=== PATIENT | male | born 1990 | race Caucasian/White ===

== ENCOUNTER 2024-02-26 18:50 | Inpatient (IN) | payer OTHER, SELFPAY ==
[2024-02-26] VITALS (21 sets, daily range): BP systolic 92–136; BP diastolic 52–73; BMI 24.1
--- NOTE | 2024-02-26 15:36 | ED.GENMED ---
History of Present Illness
<Chandrakant Che PA-C - Last Filed: 02/26/24 18:56>
General
Chief Complaint: Rectal Bleeding
Time Seen by Provider: 02/26/24 15:20
History of Present Illness
History of Present Illness:
33-year-old male with history of substance abuse presents from [facility] due to rectal bleeding ongoing for the past several weeks. He had outpatient labs done at the facility yesterday showing hemoglobin of 10-1/2. He
states that he is profoundly dizzy and has had essentially no appetite for the past several days. Denies any lower abdominal pain. Describes liquid brown stool mixed with large amounts of blood and clots. Denies any bleeding in between bowel
movements. Does not take any blood thinners
Past History
<Chandrakant Che PA-C - Last Filed: 02/26/24 18:56>
Past History
ED Past Medical History: Other (Renal calculus)
ED Past Surgical History: None
Social History
Tobacco: Smoker
Alcohol: Occasional
Drug: Other (Substance abuse)
Personal: Single
Living: long-term
Review of Systems
<Chandrakant Che PA-C - Last Filed: 02/26/24 18:56>
Review of Systems
Allergies reviewed?: Yes
All Other Systems: ROS reviewed and negative except as documented in HPI and ROS
Phy Exam
<Chandrakant Che PA-C - Last Filed: 02/26/24 18:56>
Physical Exam
Physical Exam:
GEN:Pale, diaphoretic, ill-appearing
Eyes: PERRLA, EOMs intact, no scleral icterus
HENT: NCAT, oral mucosa moist, no JVD, no cervical adenopathy.
Lungs: CTAB, no wheezes, rales, rhonchi, normal chest wall excursion
Cardiac:Tachycardic and regular
Abdomen: S, NT, ND, NABS, no masses or hepatosplenomegaly
Rectal: Tender non bleeding hemorrhoid. No blood in rectal vault
Neuro: AO x 3
MSK: No gross deformity or ecchymosis. No edema. No digital clubbing
Skin: No rashes, petechiae. Normal color, no pallor or jaundice.
Psych: Calm, cooperative, proper hygiene
Course
<Chandrakant Che PA-C - Last Filed: 02/26/24 18:56>
Orders/Labs/Results
Orders:
Orders
02/26/24
Electrocardiogram (*1) Stat
Comment: ALREADY DONE
02/26/24 15:15
Prothrombin Time Urgent
02/26/24 15:16
Type+Screen Urgent
C-Reactive Protein Urgent
Comment: ADD ON
Complete Blood Count/With Diff Urgent
Comprehensive Metabolic Panel Urgent
Lipase Urgent
Comment: ADD ON
Magnesium Urgent
Comment: MAG ADDED ON BY FLOOR 4PM 02-26-24
Manual Differential Urgent
Serum Osmolality Urgent
Comment: SERUM OSMOLALITY ADDED ON BY FLOOR 3:50PM 02-26-24
TSH Reflex To Free T4 Urgent
Comment: ADD ON
02/26/24 15:34
Blood Bank Products [* Blood Bank Products] Urgent
Blood Bank Products: *Packed RBC Leuko(PRBC's)
Quantity: 2
Transfuse Today: Yes
Reason: Bleeding
02/26/24 15:50
Add On- LAB Urgent
Tests Added?: serum osmolality
02/26/24 15:58
Lactated Ringers [Lr] 1,000 ml IV BOLUS
02/26/24 15:59
Add On- LAB Urgent
Tests Added?: magnesium
CT Abd/Pel (IV only)-DH only Urgent
Comment:
Reason For Exam: weakness, rectal bleeding
02/26/24 16:08
Potassium Chloride [KCl] 40 meq 0.9% Sodium Chloride 250 ml [Nss] 250 ml IV NOW
02/26/24 16:10
Piperacillin/Tazo 3.375 Gram [Zosyn] 3.375 gram in 50 ml IV NOW
02/26/24 16:26
Blood Culture Routine
GENESIS Source: Blood/Venous
Specimen Description:
Blood Culture Urgent
GENESIS Source: Blood/Venous
Specimen Description:
02/26/24 17:00
Vancomycin [Vancocin] 1,750 mg 0.9% Sodium Chloride 500 ml [Nss] 500 ml IV NOW
02/26/24 17:12
Osmolality, Random Urine Urgent
Date Specimen was Collected: 02/26/24
Time Specimen was Collected: 17:07
Comment: ADD ON
Urinalysis Reflex To Culture Urgent
Date Specimen was Collected: 02/26/24
Time Specimen was Collected: 17:07
Urine Drug Abuse Screen Urgent
Date Specimen was Collected: 02/26/24
Time Specimen was Collected: 17:07
Urine Sodium Urgent
Date Specimen was Collected: 02/26/24
Time Specimen was Collected: 17:07
02/26/24 17:35
Add On- LAB Urgent
Tests Added?: crp
02/26/24 17:59
Add On- LAB Stat
Tests Added?: TSH with reflex, Urine osmolarity
02/26/24 18:00
VANCOMYCIN Pharmacy to Dose [VANCOCIN Pharmacy to Dose] 1 each Pharmacy To Prepare [Call Pharmacy To Prepare] 0 ml IV PER PROTOCOL
02/26/24 18:01
Add On- LAB Stat
Tests Added?: Lipase
02/26/24 18:04
Lactic Acid Urgent
02/26/24 18:19
H&H Stat
02/26/24 18:21
BMP [Basic Metabolic Panel] Stat
02/26/24 18:25
Admit/Transfer Patient As Directed
Co-Sign Provider:
Level of Care: Inpatient admission
Assign to:: IMU- Intermediate Care
Physician / Group: Hospitalist
Diagnosis: GIB, hyponatremia, colitis
Reason for Hospitalization: #Opioid withdrawal
#Prolonged QTc (526ms on admission - then improved to 486 )
As QTc improved - started Suboxone protocol
Ativan for MSAS as cannot exclude alcohol withdrawal
Thiamine/Folate
Zofran, Imodium,
Telemetry
#L hand s/p phalanx amputation with skin discoloration and purulent output from L
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
s/p amp in Aug [address] [place]
[address] scan without significant findings
Check Bcx
MRI LUE
Ortho for I&D and culturing of deep tissue
hold Abx at this time
#Hypokalemia and Hypernatremia
LR for 24h
follow electrolytes
Mg WNL
#Vomiting with leukocytosis
XR chest without acute findings
resolved
#Incarcerated
COVID-19 neg
#Poor venous access 2/2 IVDA
Expected length of stay greater than two midnights?: Yes
ELOS- Estimated Length of Stay in days: 3
I certify the patient meets the requirements for IP care: Yes
Code Status As Directed
Resuscitation Status: Full Code
PRN Pain Medication Management As Directed
May give lesser potent ordered pain med per pt: Yes
preference::
Protocol:: Medication orders for pain may be administered in a
manner that supports deferring to patient preference
when the pt is:
- Requesting an ordered lesser potent pain medication.
Least to most potent pain medications are defined
as: acetaminophen < NSAID < tramadol < opioids
(morphine, oxycodone, hydromorphone).
- Requesting a lesser dose of the same medication IF
ORDERED.
- Requesting a less intrusive route of administration
if both routes are prescribed by the provider (PO <
IV).
02/26/24 18:31
Add On- LAB Stat
Tests Added?: Urine drug abuse screen
Abnormal Lab Results
02/26/24 02/26/24 02/26/24
15:15 15:16 17:12
WBC 15.8 H 10^3/uL
(4.8-10.8)
RBC 3.69 L 10^6/uL
(4.70-6.10)
Hgb 10.1 L g/dL
(13.0-18.0)
Hct 29.1 L %
(39.0-52.0)
MCV 78.9 L fL
(80.0-94.0)
Plt Count 638 H 10^3/uL
(130-400)
Abs Neuts (Manual) 10.2 H 10^3/uL
(1.4-6.5)
Band Neutrophils 18 H %
(0-3)
Lymphocytes (Manual) 13 L %
(20-51)
Monocytes (Manual) 11 H %
(2-9)
PT 15.2 H Sec
(11.4-14.6)
Sodium 124 L mmol/L
(135-145)
Potassium 2.9 L mmol/L
(3.5-5.1)
Chloride 84 L mmol/L
(98-107)
Glucose 146 H mg/dl
(70-99)
Serum Osmolality 262 L mOsm/kg
(275-300)
Lactic Acid
Calcium 7.9 L mg/dl
(8.4-10.2)
C-Reactive Protein 242.90 H mg/L
(0.0-10.00)
Total Protein 5.7 L g/dl
(6.3-8.2)
Albumin 2.7 L g/dl
(3.5-5.0)
Lipase 16 L U/L
(23-300)
Urine Osmolality 141 L mOsm/kg
(300-900)
Urine Sodium < 5 L mmol/L
(30-90)
Crossmatch IS Only See Detail
02/26/24
18:04
WBC
RBC
Hgb
Hct
MCV
Plt Count
Abs Neuts (Manual)
Band Neutrophils
Lymphocytes (Manual)
Monocytes (Manual)
PT
Sodium
Potassium
Chloride
Glucose
Serum Osmolality
Lactic Acid 3.0 H mmol/L
(0.7-2.0)
Calcium
C-Reactive Protein
Total Protein
Albumin
Lipase
Urine Osmolality
Urine Sodium
Crossmatch IS Only
Vital Signs
Initial and Last Documented VS:
Initial Vital Signs
Temp Pulse Resp BP Pulse Ox
99.2 F 142 12 108/73 98
02/26/24 15:13 02/26/24 15:13 02/26/24 15:13 02/26/24 15:13 02/26/24 15:13
Last Documented Vital Signs
Temp Pulse Resp BP Pulse Ox
99.2 F 116 12 100/62 100
02/26/24 15:13 02/26/24 16:45 02/26/24 16:45 02/26/24 16:45 02/26/24 16:45
<Koby Up MD - Last Filed: 02/26/24 16:05>
Orders/Labs/Results
Orders:
Orders
02/26/24
Electrocardiogram (*1) Stat
Comment: ALREADY DONE
02/26/24 15:15
Prothrombin Time Urgent
02/26/24 15:16
Type+Screen Urgent
C-Reactive Protein Urgent
Comment: ADD ON
Complete Blood Count/With Diff Urgent
Comprehensive Metabolic Panel Urgent
Lipase Urgent
Comment: ADD ON
Magnesium Urgent
Comment: MAG ADDED ON BY FLOOR 4PM 02-26-24
Manual Differential Urgent
Serum Osmolality Urgent
Comment: SERUM OSMOLALITY ADDED ON BY FLOOR 3:50PM 02-26-24
TSH Reflex To Free T4 Urgent
Comment: ADD ON
02/26/24 15:34
Blood Bank Products [* Blood Bank Products] Urgent
Blood Bank Products: *Packed RBC Leuko(PRBC's)
Quantity: 2
Transfuse Today: Yes
Reason: Bleeding
02/26/24 15:50
Add On- LAB Urgent
Tests Added?: serum osmolality
02/26/24 15:58
Lactated Ringers [Lr] 1,000 ml IV BOLUS
02/26/24 15:59
Add On- LAB Urgent
Tests Added?: magnesium
CT Abd/Pel (IV only)-DH only Urgent
Comment:
Reason For Exam: weakness, rectal bleeding
02/26/24 16:08
Potassium Chloride [KCl] 40 meq 0.9% Sodium Chloride 250 ml [Nss] 250 ml IV NOW
02/26/24 16:10
Piperacillin/Tazo 3.375 Gram [Zosyn] 3.375 gram in 50 ml IV NOW
02/26/24 16:26
Blood Culture Routine
GENESIS Source: Blood/Venous
Specimen Description:
Blood Culture Urgent
GENESIS Source: Blood/Venous
Specimen Description:
02/26/24 17:00
Vancomycin [Vancocin] 1,750 mg 0.9% Sodium Chloride 500 ml [Nss] 500 ml IV NOW
02/26/24 17:12
Osmolality, Random Urine Urgent
Date Specimen was Collected: 02/26/24
Time Specimen was Collected: 17:07
Comment: ADD ON
Urinalysis Reflex To Culture Urgent
Date Specimen was Collected: 02/26/24
Time Specimen was Collected: 17:07
Urine Drug Abuse Screen Urgent
Date Specimen was Collected: 02/26/24
Time Specimen was Collected: 17:07
Urine Sodium Urgent
Date Specimen was Collected: 02/26/24
Time Specimen was Collected: 17:07
02/26/24 17:35
Add On- LAB Urgent
Tests Added?: crp
02/26/24 17:59
Add On- LAB Stat
Tests Added?: TSH with reflex, Urine osmolarity
02/26/24 18:00
VANCOMYCIN Pharmacy to Dose [VANCOCIN Pharmacy to Dose] 1 each Pharmacy To Prepare [Call Pharmacy To Prepare] 0 ml IV PER PROTOCOL
02/26/24 18:01
Add On- LAB Stat
Tests Added?: Lipase
02/26/24 18:04
Lactic Acid Urgent
02/26/24 18:19
H&H Stat
02/26/24 18:21
BMP [Basic Metabolic Panel] Stat
02/26/24 18:25
Admit/Transfer Patient As Directed
Co-Sign Provider:
Level of Care: Inpatient admission
Assign to:: IMU- Intermediate Care
Physician / Group: Hospitalist
Diagnosis: GIB, hyponatremia, colitis
Reason for Hospitalization: #Opioid withdrawal
#Prolonged QTc (526ms on admission - then improved to 486 )
As QTc improved - started Suboxone protocol
Ativan for MSAS as cannot exclude alcohol withdrawal
Thiamine/Folate
Zofran, Imodium,
Telemetry
#L hand s/p phalanx amputation with skin discoloration and purulent output from L
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
s/p amp in Aug [address] [place]
[address] scan without significant findings
Check Bcx
MRI LUE
Ortho for I&D and culturing of deep tissue
hold Abx at this time
#Hypokalemia and Hypernatremia
LR for 24h
follow electrolytes
Mg WNL
#Vomiting with leukocytosis
XR chest without acute findings
resolved
#Incarcerated
COVID-19 neg
#Poor venous access 2/2 IVDA
Expected length of stay greater than two midnights?: Yes
ELOS- Estimated Length of Stay in days: 3
I certify the patient meets the requirements for IP care: Yes
Code Status As Directed
Resuscitation Status: Full Code
PRN Pain Medication Management As Directed
May give lesser potent ordered pain med per pt: Yes
preference::
Protocol:: Medication orders for pain may be administered in a
manner that supports deferring to patient preference
when the pt is:
- Requesting an ordered lesser potent pain medication.
Least to most potent pain medications are defined
as: acetaminophen < NSAID < tramadol < opioids
(morphine, oxycodone, hydromorphone).
- Requesting a lesser dose of the same medication IF
ORDERED.
- Requesting a less intrusive route of administration
if both routes are prescribed by the provider (PO <
IV).
02/26/24 18:31
Add On- LAB Stat
Tests Added?: Urine drug abuse screen
Abnormal Lab Results
02/26/24 02/26/24 02/26/24
15:15 15:16 17:12
WBC 15.8 H 10^3/uL
(4.8-10.8)
RBC 3.69 L 10^6/uL
(4.70-6.10)
Hgb 10.1 L g/dL
(13.0-18.0)
Hct 29.1 L %
(39.0-52.0)
MCV 78.9 L fL
(80.0-94.0)
Plt Count 638 H 10^3/uL
(130-400)
Abs Neuts (Manual) 10.2 H 10^3/uL
(1.4-6.5)
Band Neutrophils 18 H %
(0-3)
Lymphocytes (Manual) 13 L %
(20-51)
Monocytes (Manual) 11 H %
(2-9)
PT 15.2 H Sec
(11.4-14.6)
Sodium 124 L mmol/L
(135-145)
Potassium 2.9 L mmol/L
(3.5-5.1)
Chloride 84 L mmol/L
(98-107)
Glucose 146 H mg/dl
(70-99)
Serum Osmolality 262 L mOsm/kg
(275-300)
Lactic Acid
Calcium 7.9 L mg/dl
(8.4-10.2)
C-Reactive Protein 242.90 H mg/L
(0.0-10.00)
Total Protein 5.7 L g/dl
(6.3-8.2)
Albumin 2.7 L g/dl
(3.5-5.0)
Lipase 16 L U/L
(23-300)
Urine Osmolality 141 L mOsm/kg
(300-900)
Urine Sodium < 5 L mmol/L
(30-90)
Crossmatch IS Only See Detail
02/26/24
18:04
WBC
RBC
Hgb
Hct
MCV
Plt Count
Abs Neuts (Manual)
Band Neutrophils
Lymphocytes (Manual)
Monocytes (Manual)
PT
Sodium
Potassium
Chloride
Glucose
Serum Osmolality
Lactic Acid 3.0 H mmol/L
(0.7-2.0)
Calcium
C-Reactive Protein
Total Protein
Albumin
Lipase
Urine Osmolality
Urine Sodium
Crossmatch IS Only
Vital Signs
Initial and Last Documented VS:
Initial Vital Signs
Temp Pulse Resp BP Pulse Ox
99.2 F 142 12 108/73 98
02/26/24 15:13 02/26/24 15:13 02/26/24 15:13 02/26/24 15:13 02/26/24 15:13
Last Documented Vital Signs
Temp Pulse Resp BP Pulse Ox
99.2 F 116 12 100/62 100
02/26/24 15:13 02/26/24 16:45 02/26/24 16:45 02/26/24 16:45 02/26/24 16:45
<Chandrakant Che PA-C - Last Filed: 02/26/24 18:56>
MDM/Problems Addressed
MDM/Problems Addressed:
33-year-old male arrives from [facility] for evaluation of rectal bleeding. On initial evaluation he was noted to be pale and markedly tachycardic, concerning for blood loss anemia. On exam no evidence for active bleeding. He was
noted to be hyponatremic and likely hypovolemic thus was given IV lactated Ringer's and potassium. Blood was initially ordered but held given the patient's stable hemoglobin however there was in all likelihood some component of volume contraction
contributing to this. CT reveals pancolitis, given the history this is likely inflammatory in nature but cannot rule out infectious etiology and thus was covered broadly with vancomycin and Zosyn given his high risk environment in long-term. Will be
admitted to the hospitalist service for further management
<Chandrakant Che PA-C - Last Filed: 02/26/24 18:56>
*Critical Care Note
Total Time (30-74mins, 75-104mins- exclusive of procedures): Not Applicable
ED Attending Note
<Chandrakant Che PA-C - Last Filed: 02/26/24 18:56>
-
Portions of this chart may have been created with voice recognition software.� Occasional wrong word or��sound alike� substitutions may have occurred due to the inherent limitations of voice recognition software.
<Koby Up MD - Last Filed: 02/26/24 16:05>
ED Attending Note
Patient seen and examined by attending physician: Yes
I performed the substantive portion of visit, reviewed & personally made and approve the management plan that is documented in note by myself or IAN.: Yes
ED Attending Note:
33-year-old male ongoing bright red rectal bleeding for about 2 to 3 weeks. Patient was noted to be very pale. Some vague lower abdominal disc hemoglobin yesterday was 10+. No history of GI bleed. No blood thinners.
On exam patient is very pale. He is tachycardic. Blood pressure mildly low. Minimally diaphoretic at times. No respiratory distress. Abdomen soft with minimal epigastric tenderness. No rebound or guarding no mass or hernia.
Initial concern based on patient's appearance history was that he was going to have a very very low hemoglobin. Initial concern was whether we should give him unmatched blood versus match blood. Although blood pressure is okay and he is not
describing severe bleeding at this time. Given that his hemoglobin is 10.1 we could hold on actually transfusing him at this time. He is ready to get blood if needed. Again we initially were going to do a CT angiography however given the relative
stability of his hemoglobin over 24 hours and no description of severe bleeding the benefit of CT angio is minimal. He is also hyponatremic which is new. Clinically is dehydrated. He will receive fluids and nephrology consult. Clearly needs
admission.
Discharge Plan
Departure
Patient Disposition: Admit
Date of Disposition: 02/26/24
Time of Disposition: 17:58
Admit to: IMU
Presentation/result/management discussed w/ accepting MD/DO: Hospitalist
Discharge Problem:
Pancolitis
Interventions
Interventions:
*Risk Screen - Suicide Last Done: 02/26/24 15:14
*General Assessment Last Done: 02/26/24 15:14
*Neglect/Abuse Screening Last Done: 02/26/24 15:14
*ED COVID-19 Vaccine History Last Done: 02/26/24 15:15
EU-Paqkqc-Dniazqevkf Assessment Last Done: 02/26/24 15:15
ED- Cardiac Assessment Last Done: 02/26/24 15:15
ED- Pulmonary Assessment Last Done: 02/26/24 15:15
[2024-02-26 15:45] LABS: AST (SGOT) 27 U/L (17-59); Albumin 2.7 g/dl (3.5-5.0); Alkaline Phosphatase 77 U/L (38-126); Blood Urea Nitrogen 9 mg/dl (9-20); Calcium 7.9 mg/dl (8.4-10.2); Carbon Dioxide 29 mmol/L (22-30); Chloride 84 mmol/L (98-107); Estimated Creatinine Clearance 88 ml/min; Glucose 146 mg/dl (70-99); Potassium 2.9 mmol/L (3.5-5.1); Sodium 124 mmol/L (135-145); Total Bilirubin 0.7 mg/dl (0.2-1.3); Total Protein 5.7 g/dl (6.3-8.2); eGFR > 60.00
[2024-02-26 15:52] LABS: Hematocrit 29.1 % (39.0-52.0); Hemoglobin 10.1 g/dL (13.0-18.0); Mean Corp Hgb Conc. 34.7 g/dL (33.0-37.0); Mean Corpuscular Hgb 27.4 pg (27.0-31.0); Mean Corpuscular Volume 78.9 fL (80.0-94.0); Mean Platelet Volume 8.6 fL (7.4-10.4); Platelet Count 638 10^3/uL (130-400); Red Blood Cell Count 3.69 10^6/uL (4.70-6.10); Red Cell Dist. Width 12.8 % (11.5-14.5); White Blood Cell Count 15.8 10^3/uL (4.8-10.8)
[2024-02-26 15:58] LABS: Absolute Neutrophils -Man Diff 10.2 10^3/uL (1.4-6.5); Atypical Lymphocytes 5 %; Band Neutrophils 18 % (0-3); Eosinophils 4 % (0-6); Lymphocytes 13 % (20-51); Metamyelocytes 1 % (-); Monocytes 11 % (2-9); Myelocytes 1 % (-); Platelets Checked Yes; Segmented Neutrophils 47 % (42-75)
[2024-02-26 16:00] LABS: ALT (SGPT) 41 U/L (0-50); Hypochromasia 1+; Normal RBC Morphology No; Polychromasia 1+; Total Cells Counted 100
[2024-02-26 16:07] LABS: PT 15.2 Sec (11.4-14.6)
[2024-02-26 16:11] LABS: Osmolality Serum 262 mOsm/kg (275-300)
[2024-02-26 16:18] LABS: Magnesium 2.3 mg/dl (1.6-2.3)
[2024-02-26] MEDS: LR 1000 IV (16:27)
[2024-02-26] MEDS: KCL 270 MEQ IV ×2 (16:28→22:36)
[2024-02-26] MEDS: ZOSYN 50 IV ×2 (16:31→21:03)
[2024-02-26 17:27] LABS: Urine Albumin Negative (Neg - Trace); Urine Bilirubin Negative (Negative); Urine Character Clear (Clear); Urine Color Yellow; Urine Glucose Negative (Negative); Urine Ketone Negative (Negative); Urine Leukocyte Negative (Negative); Urine Nitrite Negative (Negative); Urine Occult Blood Negative (Negative); Urine Urobilinogen Negative (Neg - 1+); Urine pH 6.5 (5.0-9.0)
[2024-02-26 17:43] LABS: Urine Sodium < 5 mmol/L (30-90)
[2024-02-26] MEDS: VANCOCIN 535 MG IV (18:18)
[2024-02-26 18:23] LABS: Osmolality Urine 141 mOsm/kg (300-900)
[2024-02-26 18:28] LABS: Lipase 16 U/L (23-300)
--- NOTE | 2024-02-26 18:37 | HPS.HSE ---
Addendum entered and electronically signed by Terry Hood MD 02/26/24 19:33:
#HYpokalemia
2/2 diarrhea
replete and follow potassium
check Mg
Original Note:
Family Physician
-
Family Physician: Facility [facility]
Chief Complaint
-
GIB, abd pain
History of Present Illness
33yo M with no significant medical history except of drug abuse brought from [facility] (was incarcerated for 3 months) with persistent abd pain, bright red blood in stool, diarrhea, lack of appetite for 3 weeks. In ED had
bowel movement with waterry stool and few blood clots. Hyponatremia also found. As per patient he had not much of the appetite recently. CT and/pelvis with pancolitis. Declined personal or family Hx of IBD
Patient agreeable for HIV and HEpC screening
Medical History
Past Medical History
Past Medical History: Reports Other
Additional Past Medical History:
see HPI
Past Surgical History: Reports None
Social History
Tobacco: Former Smoker
Alcohol: Former
Drug: Former User
Family History
Family History: Not pertinent
Allergies / Home Medications
Allergies reflects when Allergies were last updated in MePlease.
Home Medications with original date entered in MePlease
Allergy/Medication List:
Allergies
Allergy/AdvReac Type Severity Reaction Status Date / Time
No Known Allergies Allergy Unverified 06/24/22 20:48
Home Medications
famotidine 20 mg tablet 20 mg PO DAILY 02/26/24
hydrocortisone 1 % topical cream 1 applic topical HS rectally 02/26/24
loperamide 2 mg capsule 2 mg PO BIDPRN PRN diarrhea 02/26/24
wheat dextrin 1 gram chewable tablet (Benefiber Sugar Free (dextrin)) 1 tab PO BID 02/26/24
Review of Systems
-
History Source: Patient
A 12 point ROS was completed and negative except as noted: Yes
Abdomen/GI: Reports See HPI
Physical Exam
Vital Signs
Vital Signs
Temp Pulse Resp BP Pulse Ox
99.2 F 116 12 100/62 100
02/26/24 15:13 02/26/24 16:45 02/26/24 16:45 02/26/24 16:45 02/26/24 16:45
Physical Exam
General: Well Developed, Well Nourished and No Apparent Distress
HEENT: Anicteric and Other; No [place] Conjunctivae
Respiratory: Clear; No Wheezes, Rales or Rhonchi
Cardiac: S1/S2 and Regular Rhythm
GI: Soft and Tender (diffusely )
Rectal: Red
Musculoskeletal: No Clubbing, No Cyanosis and No Edema
Skin: Warm, Dry and Other (Pale)
Neuro: Awake, Alert, Oriented and AO x 3
Psych: Calm
Laboratory Results
-
Laboratory Results
PT 15.2 Sec (11.4-14.6) H 02/26/24 15:15
INR 1.20 02/26/24 15:15
Lactic Acid 3.0 mmol/L (0.7-2.0) H 02/26/24 18:04
Total Bilirubin 0.7 mg/dl (0.2-1.3) 02/26/24 15:16
AST 27 U/L (17-59) 02/26/24 15:16
ALT 41 U/L (0-50) 02/26/24 15:16
Alkaline Phosphatase 77 U/L (38-126) 02/26/24 15:16
Lipase 16 U/L (23-300) L 02/26/24 15:16
Data Reviewed
-
CT Scan: Report Reviewed by me
Lab Data: Labs Reviewed by me
Impression/Plan
-
A/P:
Patient is tachycardic and dehydrated, most likely expect Hgb to drop as dehydration improves - IMU disposition advised
#Pancolitis
#Lower GIB with acute blood loss anemia
Stool Cx, c.diff, WBC, calprotectin
Two large bore IV and follow serial Hgb, transfuse if further drop by 2.0 or more or if Hgb <8
PPI
CLD on admission and GI for further mgmt
Check TSH, lipase
Zosyn
#Hyponatremia
Most likely hypovolemic
Hypoosmolar
Check UOsm
Radha low
BMP q4h
Nephrology consult
Use 3% saline 250ml bolus if still low, target increase by 4-6 meq/24h
#Leukocytosis
#Thrombocytopenia
Most likely either 2/2 infection or 2/2 hemoconcentration
follow CBC
#Subcentimeter R renal lesions
too small to characterize
mgmt as per GI - advise close outpatient follow up
DVT ppx SCDs
Full code
I have spent at least 78min preparing admission, reviewing chart, test results and direct patient care
[2024-02-26 18:56] LABS: TSH Reflex To Free T4 0.89 uIU/ml (0.47-4.68)
[2024-02-26 19:19] LABS: Amphetamines Negative (Negative); Barbiturates Negative (Negative); Benzodiazepines Negative (Negative); Buprenorphine Negative (Negative); Cocaine Negative (Negative); Marijuana Negative (Negative); Methadone Negative (Negative); Methamphetamines Negative (Negative); Opiates Negative (Negative); Phencyclidine Negative (Negative); Tricyclic Antidepressants Negative (Negative)
[2024-02-26] MEDS: PROTONIX IV 40 MG IV (20:27)
[2024-02-26] MEDS: NSS (PRESERVATIVE FREE) 10 ML IV (20:28)
[2024-02-26] MEDS: FLUSH (NSS) 3 FLUSH IV (21:03)
[2024-02-26 21:27] LABS: Hematocrit 22.3 % (39.0-52.0); Hemoglobin 7.8 g/dL (13.0-18.0)
[2024-02-26 21:42] LABS: Reticulocyte Count 2.9 % (0.4-2.8)
[2024-02-26 21:51] LABS: Blood Urea Nitrogen 6 mg/dl (9-20); Calcium 6.9 mg/dl (8.4-10.2); Carbon Dioxide 27 mmol/L (22-30); Chloride 89 mmol/L (98-107); Estimated Creatinine Clearance 107 ml/min; Glucose 109 mg/dl (70-99); LDH 132 U/L (120-246); Potassium 2.8 mmol/L (3.5-5.1); Sodium 122 mmol/L (135-145); eGFR > 60.00
[2024-02-26 22:10] LABS: Lactic Acid 1.4 mmol/L (0.7-2.0)
[2024-02-26 22:13] LABS: COVID-19 Antigen Negative (Negative)
--- NOTE | 2024-02-26 22:25 | PTCARENOTE ---
PRBC's order clarified with dr mccall- wants ONE unit transfused and then draw hg not three units as ordered
--- NOTE | 2024-02-26 22:27 | PTCARENOTE ---
critical ca and low k and na reported to arnp- order for riders see mar
[2024-02-26 22:52] LABS: Folate 8.7 ng/ml (2.76-20)
--- NOTE | 2024-02-26 23:09 | PTCARENOTE ---
1st unit prbc's transfusing- no s/s of transfusion reaction
[2024-02-26] MEDS: SODIUM CHLORIDE 3% 250 IV (23:17)
--- NOTE | 2024-02-26 23:23 | PTCARENOTE ---
3% saline hung for na of 122- ca rider and k rider also hung along with blood.
[2024-02-26] MEDS: CALCIUM GLUCONATE 100 IV (23:29)
[2024-02-27] VITALS (11 sets, daily range): BP systolic 91–117; BP diastolic 49–64; BMI 24.1
--- NOTE | 2024-02-27 00:26 | PTCARENOTE ---
ax3 pale- sinus tach- bp wnl- low grade fevers - has small liquid bm's about once an hour- bm's vary between burgundy and light brown- pt is with 2 [employer] guards shackled to the bed except when using bathroom- he is able to ambulate to bathroom with
assistance
--- NOTE | 2024-02-27 01:33 | PTCARENOTE ---
prbc's complete- no s/s of transfusion reaction.
--- NOTE | 2024-02-27 03:53 | PTCARENOTE ---
Received report from LIZZETH Quintero. Pt resting in bed. Guards at bedside, shackled pt to bed. AM labs drawn and sent. 3% Saline continues per SEP. Tele showing sinus tach 100-120s. Call hay within reach.
[2024-02-27] MEDS: ZOSYN 50 IV ×4 (03:55→22:44)
[2024-02-27 04:08] LABS: Hemoglobin 8.9 g/dL (13.0-18.0); Mean Corp Hgb Conc. 35.6 g/dL (33.0-37.0); Mean Corpuscular Hgb 28.2 pg (27.0-31.0); Mean Corpuscular Volume 79.1 fL (80.0-94.0); Red Blood Cell Count 3.16 10^6/uL (4.70-6.10); Red Cell Dist. Width 13.2 % (11.5-14.5); White Blood Cell Count 14.7 10^3/uL (4.8-10.8)
[2024-02-27 04:26] LABS: ALT (SGPT) 24 U/L (0-50); AST (SGOT) 23 U/L (17-59); Alkaline Phosphatase 63 U/L (38-126); Blood Urea Nitrogen 6 mg/dl (9-20); Calcium 7.6 mg/dl (8.4-10.2); Carbon Dioxide 27 mmol/L (22-30); Chloride 94 mmol/L (98-107); Creatine Phosphokinase 26 U/L (55-170); Estimated Creatinine Clearance 107 ml/min; Glucose 110 mg/dl (70-99); Potassium 3.3 mmol/L (3.5-5.1); Sodium 125 mmol/L (135-145); Total Protein 4.6 g/dl (6.3-8.2); eGFR > 60.00
[2024-02-27 04:36] LABS: Total Iron Binding Capacity 109 ug/dl (261-462)
[2024-02-27 04:50] LABS: Iron < 20 ug/dl (49-181)
[2024-02-27 04:53] LABS: Anisocytosis 1+; Band Neutrophils 9 % (0-3); Hypochromasia Slight; Lymphocytes 8 % (20-51); Metamyelocytes 1 % (-); Monocytes 2 % (2-9); Normal RBC Morphology No; Platelets Checked Yes; Polychromasia Slight; Segmented Neutrophils 80 % (42-75); Total Cells Counted 100
[2024-02-27 05:15] LABS: Vitamin B12 937 pg/ml (239-931)
[2024-02-27] MEDS: KCL 270 MEQ IV (05:23)
[2024-02-27] MEDS: TYLENOL 650 MG PO ×2 (05:40→19:58)
--- NOTE | 2024-02-27 06:53 | W.PN.UPDATE ---
Update Note
Progress Note Update
RN notified abnormal labs, Calcium 6.9, Corrected Calcium 7.5, ordered Calcium Gluconate 2g IV, K 2.8, ordered KCL 40meq I --> K 3.3 , Na 122 3% Nacl at 30cc/hr ordered per Dr. Manzanares recommendation -> Na 125, BMP q4 h.
--- NOTE | 2024-02-27 06:58 | CON.GI ---
Addendum entered and electronically signed by Pina Serrano MD 02/27/24 17:30:
I saw and examined the patient.
The ENGINE WIPER or PA's note was reviewed and I agree with the note.
Comment: 33-year-old male, prisoner who presents from [facility] with complaints of abdominal discomfort and rectal bleeding. He reports that in the last month, he would have discomfort in the lower abdomen and multiple episodes of bloody
bowel movements including nocturnal episodes, up to 12 a day. Some nausea but no vomiting. No heartburn or trouble swallowing. Prior to this episode, he reports having normal bowel movements without any previous episodes of bleeding. No NSAID
use. Took antibiotics for tooth infection but that was after the rectal bleeding started. Lost about 16 pounds in the last 2 months. Or inflammatory bowel disease no family history of colon cancer or polyps. In the ER noted to have iron
deficiency leukocytosis with left shift, anemia, thrombocytosis, hypoalbuminemia, hyponatremia. Stool for C. difficile, Cryptosporidium and Giardia negative, many white cells noted, cultures pending. CT scan showing pancolitis. Blood cultures
positive, final result pending.
-Bloody diarrhea, abdominal discomfort with pancolitis
Rule out inflammatory bowel disease, less likely infectious
Await stool cultures, fecal calprotectin.
Monitor H&H, transfuse as needed. Monitor electrolytes and replete.
Clear liquid diet for now.
If stool cultures negative, will need to get flexible sigmoidoscopy.
Currently on Zosyn for leukocytosis and positive blood cultures
Will follow
Original Note:
Consultation
-
Date/Time Consultation Requested: 02/26/241944
Date/Time Consultation Performed: 02/27/24 1130
Requesting Provider: Terry Hood MD
Performing Provider: REYNALDO Ortega, Pina Serrano MD
Reason for Consultation: GI bleed
Medical History
Chief Complaint / HPI
History of Present Illness:
Pt is a 33yo with hx substance abuse, renal calculus with onset of rectal bleeding for several weeks. He was noted with hbg 10.5 with dizziness and brought to for evaluation. On admission hbg with further drop to 7.8 with normal BUN and
transfusion given. ER rectal with non bleeding hemorrhoids and no blood in rectal vault though since admission patient with multiple loose brown and blood tinged stools. c-diff, Giardia/cypto neg and stool cx pending. Other labs notable for
WBC 15,8000 with 18 bands, Na 122, K 2.8, calcium 6.9, albumin 2, platelets 638, CRP 242.9, retic count 2.9, haptoglobin and fecal gemma pending with neg tox screen. CT notable for pancolitis without obstruction or pneumatosis.
Pt states hx normal bowel function for years. He also admits normal bowel function for first month at [facility]. He developed tooth infection and was placed on antibiotics and around same time started with diarrhea and bleeding. Pt states over
next few week he was having frequent stools about every hour with 16 lbs wt loss and some lower abdominal pain worse on right side. He admits to some new dysphagia also noted with regurgitation of even water that he takes in. He denies
hematemesis, or black stools. No history of prior EGD or colonoscopy in past. Pt does also admits to NSAID use during tooth infection.
Past Medical History
Past Medical History: Other (renal calculus, recent tooth infection with antibiotic use )
Social History
Tobacco: Smoker
Alcohol: None
Drug: Other (meth use prior Nursing Home stopped in November )
Living: Nursing Home
Family History
Family History: Other (no family hx colon CA, crohns, UC)
Allergies / Home Medications
Allergy/AdvReac Type Severity Reaction Status Date / Time
No Known Allergies Allergy Unverified 06/24/22 20:48
�Medication �Instructions �Recorded
famotidine 20 mg tablet 20 mg PO DAILY 02/26/24
hydrocortisone 1 % topical cream 1 applic topical HS rectally 02/26/24
loperamide 2 mg capsule 2 mg PO BIDPRN PRN diarrhea 02/26/24
wheat dextrin 1 gram chewable 1 tab PO BID 02/26/24
tablet (Benefiber Sugar Free
(dextrin))
Review of Systems
-
History Source: Patient
Constitutional: Reports Fever (low grade ) and Weight Loss
EENT: Reports Other (dysphagia with some regugitation )
Respiratory: Reports No Symptoms
Cardiac: Reports No Symptoms
Abdomen/GI: Reports Abdominal Pain, Diarrhea, Bloody Stools and Anorexia
: Reports No Symptoms
Musculoskeletal: Reports No Symptoms
Skin: Reports No Symptoms
Neurological: Reports Weakness
Hematologic/Lymphatic: Reports Bleeding
Vital Signs
Temp Pulse Resp BP Pulse Ox
100.5 F H 115 10 91/49 100
02/27/24 03:50 02/27/24 04:00 02/27/24 04:00 02/27/24 04:00 02/26/24 21:09
Physical Exam
Exam
General: Other (pale appearing )
HEENT: Normocephalic and Anicteric
Respiratory: Clear
Cardiac: Other (tachy )
GI: Soft, Non Distended and Tender (lower abd right greater than left )
Rectal: Other (per ER non bleeding hemorrhoids and no blood in rectal vault-- per nursing staff small amount of stool with blood frequent stools )
Musculoskeletal: No Clubbing and No Cyanosis
Skin: Warm and Dry
Neuro: Awake, Alert and AO x 3
Psych: Calm
Results
WBC 14.7 10^3/uL (4.8-10.8) H 02/27/24 03:49
Hgb Cancelled 02/27/24 07:47
Hct Cancelled 02/27/24 07:47
MCV 79.1 fL (80.0-94.0) L 02/27/24 03:49
Plt Count 10^3/uL (130-400) 02/27/24 03:49
PT 15.2 Sec (11.4-14.6) H 02/26/24 15:15
INR 1.20 02/26/24 15:15
Sodium Cancelled 02/27/24 07:47
Potassium Cancelled 02/27/24 07:47
Chloride Cancelled 02/27/24 07:47
Carbon Dioxide Cancelled 02/27/24 07:47
BUN Cancelled 02/27/24 07:47
Creatinine Cancelled 02/27/24 07:47
Calcium Cancelled 02/27/24 07:47
Total Bilirubin 1.0 mg/dl (0.2-1.3) 02/27/24 03:49
AST 23 U/L (17-59) 02/27/24 03:49
ALT 24 U/L (0-50) 02/27/24 03:49
Alkaline Phosphatase 63 U/L (38-126) 02/27/24 03:49
Lipase 16 U/L (23-300) L 02/26/24 15:16
Diagnostic Image Results:
02/26/24 CT A/p IV contrast
Subcentimeter low-attenuation right renal lesions too small to characterize.
Markedly limited evaluation of intestinal tract without oral contrast with findings at suggestive of diffuse thickening of the wall of virtually the entire colon such as pancolitis. No intestinal obstruction, free air, colonic pneumatosis or gross
abnormal focal fluid collection
Prior GI Procedures:
EGD: none
Colonoscopy: none
Assessment / Plan
-
Pt is a 33yo with hx substance abuse from [facility], renal calculus with onset of rectal bleeding for several weeks after tooth infection with abx/ NSAID use. On admission noted with anemia with iron deficiency with
thrombocytosis with elevated CRP, leukocytosis with bandemia and electrolyte imbalance and cT concern for pancolitis. + wt loss 16 lbs since onset
-rectal bleeding
-iron deficiency anemia
-ct concern for pancolitis.
-leukocytosis
-elevated CRP
-electrolyte imbalance
-hypoalbuminemia
-tooth infection with abx/NSAID use at onset of diarrhea
-wt loss
-dysphagia with regurgitation
-hx substance abuse with neg tox screen on admission
-hx renal stones/renal lesion on imaging
PLAN:
etiology of rectal bleeding with loose stool related to infectious etiology with recent antiboitic use for tooth infection, post infectious vs chronic IBD/proctitis vs other
c-diff, giardia/crypto neg other cx pending
await stool studies
cont antibiotics
correct electrolytes
consider flex vs colon to rule out IBD if not improving
trend hbg s/p transfusion with drop to 7.8
monitor dysphagia/regurgitation symptoms
await fecal gemma
ok for clear diet
=
-
-
Thank you for consultation and allowing me to participate in the patient's care. Please call the mail distribution scheme examiner GI physician during the after hours with any questions or concerns.
--- NOTE | 2024-02-27 08:59 | W.CON.NEPH ---
Consultation
-
Date/Time Consultation Requested: 02/27/2024 700 AM
Date/Time Consultation Performed: 02/27/2024 9:00 PM
Requesting Provider: Dr. Hood
Performing Provider: Dr. Low
Reason for Consultation: Hyponatremia
Medical History
-
Chief Complaint: Hyponatremia
History of Present Illness:
Patient is a 33-year-old prisoner with no significant medical history except of drug abuse brought from [facility] (was incarcerated for 3 months) with persistent abdominal pain, bright red blood in stool, diarrhea, lack of
appetite for 3 weeks. In ED had bowel movement with watery stool and few blood clots. Hyponatremia also found with serum sodium level of 124. As per patient he had not much of the appetite recently. CT and/pelvis with pancolitis. Hemoglobin on
admission 7.8. nephrology recommended initiation of 3% saline at 30 cc/h for total of 250 cc. This a.m. his sodium is at 125 and nephrology was asked to see the patient.
Past Medical History
Drug abuse
GERD
Social History
Tobacco: Former Smoker
Alcohol: Former
Drug: Other (Yes)
Family History
No chronic kidney disease
Allergies / Home Medications
Allergy/AdvReac Type Severity Reaction Status Date / Time
No Known Allergies Allergy Unverified 06/24/22 20:48
�Medication �Instructions �Recorded �Confirmed �Type
famotidine 20 mg tablet 20 mg PO DAILY 02/26/24 02/26/24 History
hydrocortisone 1 % topical cream 1 applic topical HS rectally 02/26/24 02/26/24 History
loperamide 2 mg capsule 2 mg PO BIDPRN PRN diarrhea 02/26/24 02/26/24 History
wheat dextrin 1 gram chewable 1 tab PO BID 02/26/24 02/26/24 History
tablet (Benefiber Sugar Free
(dextrin))
Review of Systems
-
History Source: Patient
All other systems: Negative unless noted
Constitutional: Weight Loss and Other (Decreased appetite)
EENT: No Symptoms
Respiratory: No Symptoms
Cardiac: No Symptoms
Abdomen/GI: Abdominal Pain, Diarrhea and Other (Blood and clots in stool)
: No Symptoms
Musculoskeletal: No Symptoms
Skin: No Symptoms
Neurological: No Symptoms
Endocrine: No Symptoms
Hematologic/Lymphatic: No Symptoms
Physical Exam
Vital Signs
Vital Signs
Temp Pulse Resp BP Pulse Ox
100.5 F H 112 11 91/49 100
02/27/24 03:50 02/27/24 06:00 02/27/24 06:00 02/27/24 04:00 02/26/24 21:09
Lab Results
WBC 14.7 10^3/uL (4.8-10.8) H 02/27/24 03:49
RBC 3.16 10^6/uL (4.70-6.10) L 02/27/24 03:49
Plt Count 10^3/uL (130-400) 02/27/24 03:49
Sodium Cancelled 02/27/24 07:47
Potassium Cancelled 02/27/24 07:47
Chloride Cancelled 02/27/24 07:47
Carbon Dioxide Cancelled 02/27/24 07:47
BUN Cancelled 02/27/24 07:47
Creatinine Cancelled 02/27/24 07:47
eGFR Cancelled 02/27/24 07:47
Glucose Cancelled 02/27/24 07:47
Calcium Cancelled 02/27/24 07:47
Albumin 2.0 g/dl (3.5-5.0) L 02/27/24 03:49
Physical Exam
General: AOx3, Nontoxic , NAD
HEENT: PERRL, EOMI, Anicteric, Conjunctivae Clear, Ear/Nose Intact, Hearing Normal, Oropharynx Clear/Moist, Dentition Intact, Facial Symmetry, Neck Supple, Neck: Trachea Midline, No JVD and No Thyromegaly, no Bruits
Respiratory: Clear to auscultation bilaterally with normal lung exersion
Cardiac: S1/S2 and Regular Rate/Rhythm
Breast: Deferred by me
Abdomen: Soft, Nontender, Nondistended, Normal Bowel Sounds and No Hepatosplenomegaly
Rectal: Deferred by Provider
Genito-urinary: No Costovertebral Tenderness
Extremities: No Clubbing, No Cyanosis and No Edema
Skin: No Rash or open lesions
Neuro: Nonfocal/Grossly Intact, CN II-XII (Intact) and Strength (Musculoskeletal exam 5 out of 5 both upper and lower extremities)
Hematologic/Lymphatic: No Cervical Lymphadenopathy, No Submandibular Lymphadenopathy and No Supraclavicular Lymphadenopathy
Psych: Mood/afflect pleasant, Insight/judgement good and Appropriate
Vascular: plus 2 pedal and radial pulses
Data Reviewed
-
CT Scan: Report Reviewed by me (CT noted very small right renal lesions, diffuse thickening of colon wall without obstruction no hydronephrosis)
Medical Tests (Nuc Med, Echo etc): Other (EKG personally reviewed sinus tachycardia 135 beats per)
Labs: Labs Reviewed by me (BMP hemoglobin urine osmolality)
Old Records: Reviewed (Reviewed previous serum sodium level of 140 on 06/24/2022 in electronic medical)
Assessment/Plan
-
Impression:
Hyponatremia (suspected hypovolemic)
Pancolitis with suspected lower GI bleeding
Anemia
Subcentimeter right renal lesion
History of drug abuse
Plan:
Status post 3 percent saline with minimal improvement with sodium up to 125
Urine osmolality of 141 not consistent with SIADH
Urine sodium of less than 5 consistent with volume depletion
We will administer normal saline for volume repletion and hypotension and recheck electrolytes later this afternoon
If serum sodium levels drop we will discontinue isotonic saline and I will provide more hypertonic saline
Maintain fluid restriction 48oz FR
TSH normal
Blood products received last evening for anemia in setting of GI bleed
--- NOTE | 2024-02-27 09:02 | W.PN.HOSP.TC ---
Today's Communication/Plan
-
GI consult pending
IVF NS 100ml/h and BMP q4h
follow H&H
COnt Zosyn
Assessment / Plan
Assessment / Plan
33yo M with no significant medical history except of drug abuse brought from [facility] (was incarcerated for 3 months) with persistent abd pain, bright red blood in stool, diarrhea, lack of appetite for 3 weeks. 1 unit PRBC
given on 02/26/24
AP:
#Pancolitis
#Lower GIB with acute blood loss anemia with NORBERTO
Stool Cx, c.diff, WBC, calprotectin
Cryptosporidia, Giardia and C.diff neg
Two large bore IV and follow serial Hgb, transfuse if further drop by 2.0 or more or if Hgb <8
PPI
CLD on admission and GI for further mgmt
TSH WNL, lipase not elevated
Zosyn
#Hyponatremia
Most likely hypovolemic
Hypoosmolar
UOsm 141
Radha low
BMP q4h
Nephrology consult: agree with NS and serial BMP
S/P 3% saline 250ml bolus
target increase by 4-6 meq/24h
#Leukocytosis
#Thrombocytopenia
Most likely either 2/2 infection or 2/2 hemoconcentration
follow CBC
#Subcentimeter R renal lesions
too small to characterize
mgmt as per GI - advise close outpatient follow up
#Hypokalemia
2/2 diarrhea
replete and follow potassium
check Mg
DVT ppx SCDs
Full code
I have spent at least 56 min reciewing chart, test results, communication with consultants and direct patient care
Anticipated Discharge: 24 - 48 hours
Subjective/Interval History
-
Date of Service: February 27, 2024
Objective Data
-
Labs:
Laboratory Results
02/26/24 02/26/24 02/26/24
20:57 20:58 23:47
WBC
Hgb 7.8 L D
Hct 22.3 L
Plt Count
Sodium 122 L Cancelled
Potassium 2.8 L Cancelled
Chloride 89 L Cancelled
Carbon Dioxide 27 Cancelled
BUN 6 L Cancelled
Creatinine 0.9 Cancelled
Glucose 109 H Cancelled
Calcium 6.9 L* Cancelled
Total Bilirubin
AST
ALT
Alkaline Phosphatase
02/27/24 02/27/24 02/27/24
03:47 03:49 07:47
WBC 14.7 H
Hgb 8.9 L Cancelled
Hct 25.0 L Cancelled
Plt Count
Sodium Cancelled 125 L Cancelled
Potassium Cancelled 3.3 L Cancelled
Chloride Cancelled 94 L Cancelled
Carbon Dioxide Cancelled 27 Cancelled
BUN Cancelled 6 L Cancelled
Creatinine Cancelled 0.9 Cancelled
Glucose Cancelled 110 H Cancelled
Calcium Cancelled 7.6 L Cancelled
Total Bilirubin 1.0
AST 23
ALT 24
Alkaline Phosphatase 63
02/27/24 02/27/24
13:47 19:47
WBC
Hgb Pending Pending
Hct Pending Pending
Plt Count
Sodium
Potassium
Chloride
Carbon Dioxide
BUN
Creatinine
Glucose
Calcium
Total Bilirubin
AST
ALT
Alkaline Phosphatase
Vital Signs:
Vital Signs
Temp Pulse Resp BP Pulse Ox
100.5 F H 112 11 91/49 100
02/27/24 03:50 02/27/24 06:00 02/27/24 06:00 02/27/24 04:00 02/26/24 21:09
I&O
02/26/24 02/27/24 02/28/24
06:59 06:59 06:59
Intake Total 1660 / 1660
Output Total 500 / 500
Balance 1160 / 1160
Review of Systems
-
History Source: Patient
All other systems: Reviewed and negative
Physical Exam
-
General: No Apparent Distress
HEENT: Normocephalic
Respiratory: Clear to Auscultation
GI: Soft, Nontender and Nondistended
Musculoskeletal: No Clubbing, No Cyanosis and No Edema
Skin: Warm and Dry
Neuro: Awake, Alert, Oriented and AO x 3
Psych: Calm
--- NOTE | 2024-02-27 09:20 | CM ---
Patient from [facility] with Hx substance abuse with lower GI bleed, pancolitis. Receiving IVF. Clear liquids. Tox screen noted.
Spoke with Britt, Division Operations Specialist [facility] (ph [phone]); clinical update provided. The patient does not have any current substance abuse issues and therefore is not receiving treatment/doing a program for substance abuse. He had been taking
un-prescribed Subutex/suboxone in November 2023 when he first arrived, and has not had any Etoh in 3 years. The phone for nurse report to [facility] Nurse [phone], fax [phone]. If the [phone] is not working call Britt at [phone].
Plan return to [facility] when medically ready.
[2024-02-27] MEDS: KCL 40 MEQ PO ×2 (09:30→13:00)
[2024-02-27] MEDS: NSS 1000 IV (09:30)
[2024-02-27] MEDS: PROTONIX IV 40 MG IV ×2 (09:31→20:03)
[2024-02-27] MEDS: NSS (PRESERVATIVE FREE) 10 ML IV ×2 (09:31→20:03)
[2024-02-27 10:30] LABS: Hematocrit 26.2 % (39.0-52.0); Hemoglobin 9.1 g/dL (13.0-18.0)
[2024-02-27 11:03] LABS: Blood Urea Nitrogen 8 mg/dl (9-20); Calcium 7.4 mg/dl (8.4-10.2); Carbon Dioxide 24 mmol/L (22-30); Chloride 95 mmol/L (98-107); Estimated Creatinine Clearance 107 ml/min; Glucose 132 mg/dl (70-99); Potassium 3.2 mmol/L (3.5-5.1); Sodium 128 mmol/L (135-145); eGFR > 60.00
--- NOTE | 2024-02-27 13:43 | PHA.VAN.IN ---
Assessment
- Assessment
Renal Function: Appears similar to baseline
Concomitant Antimicrobials: piperacillin/tazobactam
AUC Dosing Plan
- Dosing Variables
Dosing Weight (kg): 70
Dosing CrCl (ml/min): 107
Vd coefficient (L/kg): 0.7
- Empiric Dosing
Initial / Loading Dose: 1750mg - 02/25 18:18, give 1500mg x1 now
Maintenance Regimen: Vanc 1000mg Q12H starting 02/27 06
Estimated AUC (mcg*h/mL): 458
Estimated Peak (mcg*h/mL): 30.3
Estimated Trough (mcg/ml): 10.9
Estimated Half Life (H): 7.4
- Monitoring
No levels ordered at this time: consider levels in next few days
Pharmacokinetics Vancomycin I
- -
Patient Age: 33
Patient Sex: Male
Vancomycin Day #: 1
Indication: Bacteremia
Requesting Provider: Dr. Hood
Pertinent Antimicrobial Allergies:
NKDA
Height / Weight:
Height 5 ft 7 in
Actual Weight 69.7 kg
Pertinent Past Medical History: JOBY
- Vital Signs / Lab Results
Temp Pulse Resp BP Pulse Ox
98.7 F 97 24 104/58 99
02/27/24 11:20 02/27/24 12:00 02/27/24 12:00 02/27/24 10:56 02/27/24 12:16
Lab Results - Hematology
02/26/24 02/27/24
15:16 03:49
WBC 15.8 H 14.7 H
Band Neutrophils 18 H 9 H D
Lab Results - Chemistry
02/26/24 02/26/24 02/26/24
15:16 18:21 20:57
BUN 9 Cancelled 6 L
Creatinine 1.1 Cancelled 0.9
Estimated Creat Clear 88 Cancelled 107
Albumin 2.7 L
02/26/24 02/27/24 02/27/24
23:47 03:47 03:49
BUN Cancelled Cancelled 6 L
Creatinine Cancelled Cancelled 0.9
Estimated Creat Clear Cancelled Cancelled 107
Albumin 2.0 L
02/27/24 02/27/24
07:47 10:12
BUN Cancelled 8 L
Creatinine Cancelled 0.9
Estimated Creat Clear Cancelled 107
Albumin
02/26/24 02/26/24
18:04 21:46
Lactic Acid 3.0 H 1.4
Lab Results - Urine
02/26/24
17:12
Urine Nitrite (Reflex) Negative
Leukocyte Esterase Rfl Negative
Microbiology Results
02/26/24 16:26 Blood Culture - Preliminary
Blood/Venous Positive culture in progress
Gram Stain - Preliminary
02/26/24 20:07 Stool Leukocytes - Final
Feces/Stool
02/26/24 20:07 Cryptosporidium/Giardia - Final
Feces/Stool Negative for Cryptosporidium and/or Giardia Lamblia
antigens.
C. difficile GDH Antigen & Toxins - Final
Negative for toxigenic C.difficile
[2024-02-27] MEDS: VANCOCIN 300 ML IV (14:40)
[2024-02-27] MEDS: VANCOCIN 300 MG IV (14:40)
[2024-02-27 15:29] LABS: Blood Urea Nitrogen 7 mg/dl (9-20); Calcium 7.6 mg/dl (8.4-10.2); Carbon Dioxide 24 mmol/L (22-30); Chloride 97 mmol/L (98-107); Estimated Creatinine Clearance 120 ml/min; Glucose 111 mg/dl (70-99); Potassium 3.8 mmol/L (3.5-5.1); Sodium 128 mmol/L (135-145); eGFR > 60.00
[2024-02-27 16:28] LABS: Hematocrit 25.6 % (39.0-52.0); Hemoglobin 8.7 g/dL (13.0-18.0)
[2024-02-27] MEDS: D5W 500 IV (17:28)
[2024-02-27 18:12] LABS: HIV Combo Negative (Negative)
[2024-02-27 18:20] LABS: Hepatitis C Antibody Negative (Negative)
[2024-02-27 23:02] LABS: Blood Urea Nitrogen 7 mg/dl (9-20); Calcium 7.1 mg/dl (8.4-10.2); Carbon Dioxide 25 mmol/L (22-30); Chloride 97 mmol/L (98-107); Estimated Creatinine Clearance 107 ml/min; Glucose 116 mg/dl (70-99); Potassium 3.3 mmol/L (3.5-5.1); Sodium 125 mmol/L (135-145); eGFR > 60.00
[2024-02-28] VITALS (11 sets, daily range): BP systolic 98–119; BP diastolic 57–74
--- NOTE | 2024-02-28 00:16 | PTCARENOTE ---
BMP results relayed to REYNALDO Oconnor.
[2024-02-28] MEDS: ZOSYN 50 IV ×3 (04:15→15:28)
[2024-02-28 04:25] LABS: Hematocrit 25.3 % (39.0-52.0); Hemoglobin 8.8 g/dL (13.0-18.0)
[2024-02-28 04:49] LABS: Blood Urea Nitrogen 7 mg/dl (9-20); Calcium 7.4 mg/dl (8.4-10.2); Carbon Dioxide 24 mmol/L (22-30); Chloride 99 mmol/L (98-107); Estimated Creatinine Clearance 107 ml/min; Glucose 116 mg/dl (70-99); Potassium 3.5 mmol/L (3.5-5.1); Sodium 128 mmol/L (135-145); eGFR > 60.00
--- NOTE | 2024-02-28 05:39 | PTCARENOTE ---
Diarrhea continues; liquid brown and bright red blood. Incont x1; hygiene wipes provided. Tele showing NSR/SR. Able to ambulate to BR w/ SBA. Tolerating IV Abx. Reporting intermittent hiccups, denies any nausea or vomiting. 101 fever; Tylenol given
with good result.
Correctional facility guards(2) at bedside, managing shackles that are attached to patient's ankle to the foot of the bed.
Call hay and tray table within reach. Calls appropriately. Cooperative and appreciative of care.
[2024-02-28] MEDS: VANCOCIN 200 IV (06:33)
[2024-02-28] MEDS: NSS (PRESERVATIVE FREE) 10 ML IV ×2 (08:01→20:27)
[2024-02-28] MEDS: NSS 1000 IV ×2 (08:01→20:26)
[2024-02-28] MEDS: PROTONIX IV 40 MG IV ×2 (08:02→20:27)
--- NOTE | 2024-02-28 08:38 | PHA.VAN.FU ---
Vancomycin Assessment / Plan
- Assessment
Renal Function: Stable
Concomitant Antimicrobials: piperacillin/tazobactam
- Dosing Plan
Continue: Vanc 1000mg Q12H
- Monitoring Plan
No level(s) ordered at this time: consider levels in next few days
- Follow Up
Pharmacy will continue to follow.
Vancomycin Follow UP
- -
Patient Age: 33
Patient Sex: Male
Vancomycin Day #: 2
Indication: Bacteremia
Requesting Provider: Dr. Hood
Pertinent Antimicrobial Allergies:
NKDA
Height / Weight:
Height 5 ft 7 in
Actual Weight 69.7 kg
Pertinent Past Medical History: JOBY
- Vital Signs / Lab Results
Temp Pulse Resp BP Pulse Ox
99.8 F 100 13 99/57 98
02/28/24 03:30 02/28/24 06:00 02/28/24 06:00 02/28/24 02:00 02/28/24 06:00
Lab Results - Hematology
02/26/24 02/27/24
15:16 03:49
WBC 15.8 H 14.7 H
Band Neutrophils 18 H 9 H D
Lab Results - Chemistry
02/26/24 02/26/24 02/26/24
15:16 18:21 20:57
BUN 9 Cancelled 6 L
Creatinine 1.1 Cancelled 0.9
Estimated Creat Clear 88 Cancelled 107
Albumin 2.7 L
02/26/24 02/27/24 02/27/24
23:47 03:47 03:49
BUN Cancelled Cancelled 6 L
Creatinine Cancelled Cancelled 0.9
Estimated Creat Clear Cancelled Cancelled 107
Albumin 2.0 L
02/27/24 02/27/24 02/27/24
07:47 10:12 15:01
BUN Cancelled 8 L 7 L
Creatinine Cancelled 0.9 0.8
Estimated Creat Clear Cancelled 107 120
Albumin
02/27/24 02/27/24 02/27/24
17:04 21:04 22:43
BUN Cancelled Cancelled 7 L
Creatinine Cancelled Cancelled 0.9
Estimated Creat Clear Cancelled Cancelled 107
Albumin
02/28/24 02/28/24 02/28/24
04:01 04:01 04:01
BUN Cancelled 7 L
Creatinine Cancelled 0.9
Estimated Creat Clear Cancelled
Albumin
02/28/24
04:01
BUN
Creatinine
Estimated Creat Clear 107
Albumin
02/26/24 02/26/24
18:04 21:46
Lactic Acid 3.0 H 1.4
Microbiology Results
02/26/24 20:57 Blood Culture - Preliminary
Blood/Venous No Growth in 24 hours- Final report to follow
02/26/24 16:26 Blood Culture - Preliminary
Blood/Venous No Growth in 24 hours- Final report to follow
02/26/24 16:26 Blood Culture - Preliminary
Blood/Venous Positive culture in progress
Gram Stain - Preliminary
02/26/24 20:07 Stool Leukocytes - Final
Feces/Stool
02/26/24 20:07 Cryptosporidium/Giardia - Final
Feces/Stool Negative for Cryptosporidium and/or Giardia Lamblia
antigens.
C. difficile GDH Antigen & Toxins - Final
Negative for toxigenic C.difficile
--- NOTE | 2024-02-28 09:25 | W.PN.GI.CBS2 ---
Addendum entered and electronically signed by Erica Jones MD 02/28/24 13:52:
I saw and examined the patient.
The [employer]'s note was reviewed and I agree with the note.
Comment: Diarrhea with rectal bleeding, fever, leukocytosis with bandemia, elevated CRP and pancolitis noted on CT most likely infectious versus inflammatory bowel disease. Continue antibiotics for now stool negative for C. difficile and also
negative for ova parasites, Giardia and crypto. He tested negative for HIV, hepatitis C and COVID. Will schedule him for a flexible sigmoidoscopy or colonoscopy if able to tolerate prep Saturday once his electrolytes are corrected and sodium is
improved.
Original Note:
Today's Communication / Plan
-
etiology of rectal bleeding with loose stool related to infectious etiology with recent antibiotic use for tooth infection, post infectious vs chronic IBD/proctitis vs other
c-diff, giardia/crypto neg other cx pending
stool brown less blood today
cont antibiotics /blood cx neg so far
correct electrolytes
consider flex vs colon for Saturday after stable from fever/electrolyte imbalance to rule out IBD
trend hbg s/p transfusion with drop to 7.8 now 8.8 today
monitor dysphagia/regurgitation symptoms will allow full liquid diet with ensure
await fecal gemma
Assessment / Plan
-
Pt is a 33yo with hx substance abuse from [facility], renal calculus with onset of rectal bleeding for several weeks after tooth infection with abx/ NSAID use. On admission noted with anemia with iron deficiency with
thrombocytosis with elevated CRP, leukocytosis with bandemia/fever and electrolyte imbalance and cT concern for pancolitis. + wt loss 16 lbs since onset.
-rectal bleeding
-iron deficiency anemia
-ct concern for pancolitis
-leukocytosis/fever
-elevated CRP
-electrolyte imbalance
-hypoalbuminemia
-tooth infection with abx/NSAID use at onset of diarrhea
-wt loss
-dysphagia with regurgitation
-hx substance abuse with neg tox screen on admission
-hx renal stones/renal lesion on imaging
PLAN:
etiology of rectal bleeding with loose stool related to infectious etiology with recent antibiotic use for tooth infection, post infectious vs chronic IBD/proctitis vs other
c-diff, giardia/crypto neg other cx pending
stool brown less blood today
cont antibiotics
correct electrolytes
consider flex vs colon for Saturday after stable from fever/electrolyte imbalance to rule out IBD
trend hbg s/p transfusion with drop to 7.8 now 8.8 today
monitor dysphagia/regurgitation symptoms will allow full liquid diet with ensure
await fecal gemma
Subjective
Subjective
Date of Service: February 28, 2024
still with loose stool-- noted brown liquid on exam this am, on clear diet still some abdominal pain, fever 101 last PM
Objective
Data Reviewed
Laboratory Data:
Laboratory Results
PT 15.2 Sec (11.4-14.6) H 02/26/24 15:15
INR 1.20 02/26/24 15:15
Magnesium 2.0 mg/dl (1.6-2.3) 02/27/24 03:49
Total Bilirubin 1.0 mg/dl (0.2-1.3) 02/27/24 03:49
AST 23 U/L (17-59) 02/27/24 03:49
ALT 24 U/L (0-50) 02/27/24 03:49
Alkaline Phosphatase 63 U/L (38-126) 02/27/24 03:49
Lipase 16 U/L (23-300) L 02/26/24 15:16
Vital Signs and I&O:
Vital Signs
Temp Pulse Resp BP Pulse Ox
99.8 F 100 13 99/57 98
02/28/24 03:30 02/28/24 06:00 02/28/24 06:00 02/28/24 02:00 02/28/24 06:00
I&O
02/27/24 02/28/24 02/29/24
06:59 06:59 06:59
Intake Total 1660 / 1660 318 / 318
Output Total 500 / 500
Balance 1160 / 1160 318 / 318
Physical Exam
Physical Exam
HEENT: Anicteric and Moist mucous membranes
Cardiology: Other (tachy )
Pulmonary: Clear
GI: Soft, Non Distended and Tender (lower abdominal pain )
Rectal: Brown (loose in bed with incontinence )
Extremities: No Edema
Neuro: Non Focal
--- NOTE | 2024-02-28 10:49 | W.PN.NEPH.PH ---
Today's Communication / Plan
-
NSS
Assessment/Plan
-
Impression:
Hyponatremia (suspected hypovolemic)
Pancolitis with suspected lower GI bleeding
Anemia
Subcentimeter right renal lesion
History of drug abuse
Plan:
follow BMP
continue IVF
scope per GI
-
-
Date of Service: February 28, 2024
CC / HPI / ROS
-
Chief Complaint:
hyponatremia
History of Present Illness:
Na up to 128 with NSS
hgb stable at 8.8
BP stable
Review of Systems:
no CP/SOB
Labs
-
Labs:
WBC 14.7 10^3/uL (4.8-10.8) H 02/27/24 03:49
RBC 3.16 10^6/uL (4.70-6.10) L 02/27/24 03:49
Plt Count 10^3/uL (130-400) 02/27/24 03:49
eGFR > 60.00 02/28/24 04:01
eGFR Cancelled 02/28/24 04:01
Albumin 2.0 g/dl (3.5-5.0) L 02/27/24 03:49
Physical Exam
-
Vital Signs:
Vital Signs
Temp Pulse Resp BP Pulse Ox
99.5 F 97 12 109/64 99
02/28/24 07:11 02/28/24 08:00 02/28/24 08:00 02/28/24 08:00 02/28/24 09:44
Cardiovascular:: Regular rate and rhythm
Respiratory:: Bilateral: CTA
Lung Excursion:: Normal
Abdomen:: Nontender and Soft
Extremity Edema:: None: Bilateral:
[2024-02-28 11:41] LABS: Blood Urea Nitrogen 6 mg/dl (9-20); Calcium 7.2 mg/dl (8.4-10.2); Carbon Dioxide 24 mmol/L (22-30); Chloride 96 mmol/L (98-107); Estimated Creatinine Clearance 107 ml/min; Glucose 146 mg/dl (70-99); Potassium 3.3 mmol/L (3.5-5.1); Sodium 127 mmol/L (135-145); eGFR > 60.00
--- NOTE | 2024-02-28 12:23 | W.PN.HOSP.TC ---
Today's Communication/Plan
-
cont IVF and q4h BMP
Cont Zosyn ID consult
Assessment / Plan
Assessment / Plan
33yo M with no significant medical history except of [facility] for [facility]) with persistent abd pain, bright red blood in stool, diarrhea, lack of appetite for 3 weeks. 1 unit PRBC
given on 02/26/24
AP:
#Pancolitis (infectious vs inflammatory)
#Lower GIB with acute blood loss anemia with NORBERTO
Stool Cx, c.diff, WBC, calprotectin
Cryptosporidia, Giardia and C.diff neg
Two large bore IV and follow serial Hgb, transfuse if further drop by 2.0 or more or if Hgb <8
PPI
CLD on admission and GI for further mgmt: colonoscopy planned on 03/02/24
TSH WNL, lipase not elevated
Zosyn
#COag neg staph in one set of Bcx, r/o bacteremia
repeated Bcx neg, suspect contamination. ID consult
Vanco to stop, cont ZOsyn
#Hyponatremia
Most likely hypovolemic
Hypoosmolar
UOsm 141
Radha low
BMP q4h
Nephrology consult: agree with NS and serial BMP
S/P 3% saline 250ml bolus
S.P D5W for rapid correction on 02/27/24
target increase by 4-6 meq/24h
#Leukocytosis
#Thrombocytopenia
Most likely either 2/2 infection or 2/2 hemoconcentration
follow CBC
#Subcentimeter R renal lesions
too small to characterize
mgmt as per GI - advise close outpatient follow up
#Hypokalemia
2/2 diarrhea
replete and follow potassium
check Mg
DVT ppx SCDs
Full code
I have spent at least 36 min reviewing chart, test results, communication with consultants and direct patient care
Anticipated Discharge: > 48 hours
Subjective/Interval History
-
Date of Service: February 28, 2024
Objective Data
-
Labs:
Laboratory Results
02/28/24 02/28/24 02/28/24
04:01 04:01 04:01
Hgb 8.8 L
Hct 25.3 L
Sodium Cancelled 128 L
Potassium Cancelled 3.5
Chloride Cancelled
Carbon Dioxide
BUN
Creatinine
Glucose
Calcium
02/28/24 02/28/24 02/28/24
04:01 04:01 04:01
Hgb
Hct
Sodium
Potassium
Chloride 99
Carbon Dioxide Cancelled 24
BUN Cancelled 7 L
Creatinine Cancelled
Glucose
Calcium
02/28/24 02/28/24 02/28/24
04:01 04:01 04:01
Hgb
Hct
Sodium
Potassium
Chloride
Carbon Dioxide
BUN
Creatinine 0.9
Glucose Cancelled 116 H
Calcium Cancelled 7.4 L
02/28/24 02/28/24 02/28/24
09:31 12:00 16:00
Hgb Pending
Hct Pending
Sodium 127 L Pending Pending
Potassium 3.3 L Pending Pending
Chloride 96 L Pending Pending
Carbon Dioxide 24 Pending Pending
BUN 6 L Pending Pending
Creatinine 0.9 Pending Pending
Glucose 146 H Pending Pending
Calcium 7.2 L Pending Pending
02/28/24
20:00
Hgb
Hct
Sodium Pending
Potassium Pending
Chloride Pending
Carbon Dioxide Pending
BUN Pending
Creatinine Pending
Glucose Pending
Calcium Pending
Vital Signs:
Vital Signs
Temp Pulse Resp BP Pulse Ox
99.4 F 97 12 109/64 99
02/28/24 11:04 02/28/24 08:00 02/28/24 08:00 02/28/24 08:00 02/28/24 09:44
I&O
02/27/24 02/28/24 02/29/24
06:59 06:59 06:59
Intake Total 1660 / 1660 318 / 318 530 / 530
Output Total 500 / 500
Balance 1160 / 1160 318 / 318 530 / 530
Review of Systems
-
History Source: Patient
All other systems: Reviewed and negative
Abdomen/GI: Reports Diarrhea
Physical Exam
-
General: No Apparent Distress
HEENT: Normocephalic, Atraumatic and Moist Mucous Membranes
Respiratory: Clear to Auscultation
Cardiac: Regular Rhythm
GI: Soft and Tender (diffusely)
Genito-urinary: No Costovertebral Tender
Musculoskeletal: No Clubbing, No Cyanosis and No Edema
Skin: Warm
Neuro: Awake, Alert, Oriented and AO x 3
Psych: Calm
--- NOTE | 2024-02-28 13:12 | CM ---
CM reviewed chart, patient continue with IVF. Per chart, colonoscopy planned 03/02/24. CM will continue to follow for all discharge planning needs.
The phone for nurse report to [facility]:
Nurse [phone],
. If the [phone] # is not working call Britt at [phone].
Plan return to [facility] when medically ready.
[2024-02-28] MEDS: KCL 40 MEQ PO (14:03)
--- NOTE | 2024-02-28 14:49 | CON.ID ---
Consultation
-
Date/Time Consultation Requested: February 28, 2024 1227
Date/Time Consultation Performed: February 28, 2024 1450
Requesting Provider: Dr. Terry Manzanares
Performing Provider: Dr. Randi Paz
Reason for Consultation: coag-neg staph bacteremia
Chief Complaint / Past History
Chief Complaint
Diarrhea
History of Present Illness
33-year-old male with history of substance abuse, incarcerated since November 2023 who was sent to the ER on February 25 due to symptomatic anemia. Patient reports that he has been having bloody diarrhea every day for 1 month. Blood was bright red. He
had diarrhea about 10-12 times a day. Positive nausea and vomiting. Positive lower abdominal pain. Positive subjective fever, sweats and chills. He states the present is aware but did not addressed the diarrhea issue. He received a 10-day
course of antibiotic which he cannot recall the name for a dental infection in January. It was during the antibiotic course that he started with the bloody diarrhea. He has lost 16 pounds from poor oral intake. No one else in [facility] with bloody
diarrhea. On admission patient's wbc was 15.8, hemoglobin 7.8, platelet 638, sodium 124, potassium 2.9. CT of abdomen and pelvis with IV contrast, was very limited without oral contrast with findings of diffuse pancolitis. Patient has been on
Zosyn since admission. C. difficile negative, O+ P negative, stool culture pending , many leukocytes in stool. Since being in a hospital, blood in stool has decreased.
Past History
Additional Past Medical History:
Substance abuse (snorting meth)
Nephrolithiasis
Allergy History:
No Known Allergies Allergy (Unverified 06/24/22 20:48)
Medications Reviewed: Yes
Current Antibiotics:
Zosyn d3
s/p vanco x 3 doses
Social History
Tobacco: Former Smoker
Alcohol: None
Drug: Former User (Meth, last use in 11/2023)
Family History
Family History: Not Pertinent
Review of Systems
Review of Systems
General: Fever, Chills and Change in Appetite
HEENT: Negative Sinus Problems, Headache or Pharyngitis
Cardiovascular: Negative Chest Pain or Dyspnea
Respiratory: Negative Dyspnea, Cough or Hemoptysis
Genital / Urological: Negative Dysuria or Flank Pain
Endocrine: Weakness
Skin / Hair / Nails: Negative Rash
Neurological: Negative Headache or Dizziness
All systems: All other systems were reviewed and were negative
Vital Signs
Temp Pulse Resp BP Pulse Ox
99.4 F 97 12 109/64 99
02/28/24 11:04 02/28/24 08:00 02/28/24 08:00 02/28/24 08:00 02/28/24 09:44
Selected Entries
02/27/24
19:30
Temp 101.0 F H
Physical Exam
Physical Exam
Constitutional: No Acute Distress and Comfortable
Cardiovascular: Regular Rate and S1/S2
Pulmonary: Clear
Gastrointestinal: Soft, Non Tender, Non Distended and Normal Bowel Sounds
Genito-Urinary: Negative CVA Tenderness
Extremities: Negative Edema
Neurological: AO x 3
Lab / Diagnostic Study Results
Total Counted 100 02/27/24 03:49
Abs Neuts (Manual) 13.0 10^3/uL (1.4-6.5) H 02/27/24 03:49
Segmented Neutrophils 80 % (42-75) H 02/27/24 03:49
Band Neutrophils 9 % (0-3) H D 02/27/24 03:49
Lymphocytes (Manual) 8 % (20-51) L 02/27/24 03:49
Eosinophils (Manual) 4 % (0-6) 02/26/24 15:16
PT 15.2 Sec (11.4-14.6) H 02/26/24 15:15
INR 1.20 02/26/24 15:15
Lactic Acid 1.4 mmol/L (0.7-2.0) 02/26/24 21:46
C-Reactive Protein 242.90 mg/L (0.0-10.00) H 02/26/24 15:16
Microbiology Results
Micro:
02/26/24 20:07 Salmonella/Shigella Culture - Preliminary
Feces/Stool Culture in Progress
Campylobacter Culture - Preliminary
Culture in Progress
Shiga Toxin Test - Pending
Stool Leukocytes - Final
02/26/24 16:26 Blood Culture - Preliminary
Blood/Venous Coagulase neg. staphylococcus
Additional testing on request
Gram Stain - Preliminary
02/26/24 20:57 Blood Culture - Preliminary
Blood/Venous No Growth in 24 hours- Final report to follow
02/26/24 16:26 Blood Culture - Preliminary
Blood/Venous No Growth in 24 hours- Final report to follow
02/26/24 20:07 Cryptosporidium/Giardia - Final
Feces/Stool Negative for Cryptosporidium and/or Giardia Lamblia
antigens.
C. difficile GDH Antigen & Toxins - Final
Negative for toxigenic C.difficile
02/26/24 CT a/p with IV contrast: Subcentimeter low-attenuation right renal lesions too small to characterize. Markedly limited evaluation of intestinal tract without oral contrast with findings at suggestive of diffuse thickening of the wall of
virtually the entire colon such as pancolitis. No intestinal obstruction, free air, colonic pneumatosis or gross abnormal focal fluid collection.
Assessment / Plan
# Bloody diarrhea x 4 weeks
# Fever
# Leukocytosis
# Blood loss anemia
- Given chronicity of diarrhea, less likely infectious.
-Suspect IBD.
- Stool many wbc, C. dif neg, O+P neg, cx pending.
- Agree with flex sig, biopsy
- Narrow Zosyn to ceftriaxone. If stool cx neg, dc abx.
-Follow temps/wbc.
# CoNS bacteremia 1 of 2 sets = contaminant.
- Repeat bcx neg.
- No need to treat
# Incarcerated since 11/2023
# Substance abuse
- HIV neg, HCV neg.
[2024-02-28 15:00] LABS: Magnesium 2.1 mg/dl (1.6-2.3)
[2024-02-28 15:04] LABS: Blood Urea Nitrogen 6 mg/dl (9-20); Calcium 7.1 mg/dl (8.4-10.2); Carbon Dioxide 28 mmol/L (22-30); Chloride 98 mmol/L (98-107); Estimated Creatinine Clearance 107 ml/min; Glucose 114 mg/dl (70-99); Potassium 3.2 mmol/L (3.5-5.1); Sodium 128 mmol/L (135-145); eGFR > 60.00
[2024-02-28] MEDS: KCL 270 MEQ IV (16:00)
[2024-02-28] MEDS: FERRLECIT 110 MG IV (16:00)
[2024-02-28] MEDS: STERILE WATER FOR INJECTION 10 ML IV (20:29)
[2024-02-28] MEDS: ROCEPHIN 1000 MG IV (20:29)
[2024-02-28 21:35] LABS: Hematocrit 23.4 % (39.0-52.0)
[2024-02-28 21:46] LABS: Blood Urea Nitrogen 4 mg/dl (9-20); Calcium 7.1 mg/dl (8.4-10.2); Carbon Dioxide 24 mmol/L (22-30); Chloride 99 mmol/L (98-107); Estimated Creatinine Clearance 120 ml/min; Glucose 126 mg/dl (70-99); Potassium 3.8 mmol/L (3.5-5.1); Sodium 128 mmol/L (135-145); eGFR > 60.00
--- NOTE | 2024-02-28 22:01 | PTCARENOTE ---
Pt received in bed at beginning of shift. Forensics pt. Shackled to bed. 2 guards with pt. Pt AAO3. Flat affect. Admits to abd cramping. Has not had BM since beginning of shift. K+ rider finished infusing. Labs drawn and set to lab. Using urinal
vin urine. IVF's infusing as ordered. VSS. Afebrile. SR/ST on CM. POX 95% RA. Rest of assessment as documented. Call hay remains within reach. Will continue to monitor.
[2024-02-29] VITALS (12 sets, daily range): BP systolic 98–128; BP diastolic 47–65
[2024-02-29 01:20] LABS: Blood Urea Nitrogen 3 mg/dl (9-20); Calcium 7.1 mg/dl (8.4-10.2); Carbon Dioxide 25 mmol/L (22-30); Chloride 102 mmol/L (98-107); Estimated Creatinine Clearance 120 ml/min; Glucose 104 mg/dl (70-99); Potassium 3.7 mmol/L (3.5-5.1); Sodium 130 mmol/L (135-145); eGFR > 60.00
[2024-02-29] MEDS: BENADRYL 6.25 MG IV (02:29)
[2024-02-29] MEDS: TYLENOL 650 MG PO ×2 (02:34→19:15)
--- NOTE | 2024-02-29 03:18 | PTCARENOTE ---
Temp 102.0 Tylenol given as ordered. C/o nausea. Order obtained for IV Benadryl and given. When removing covers d/t fever pt incontinent large red/brown loose bm. Cleansed and changed. Order entered for H&H then Q6hrs. Obtained and sent to lab. Pt
currently resting comfortably. Awaiting lab results. Call hay remains within reach. Will continue to monitor.
[2024-02-29 03:22] LABS: Hematocrit 22.7 % (39.0-52.0)
[2024-02-29 05:58] LABS: Blood Urea Nitrogen 4 mg/dl (9-20); Calcium 7.2 mg/dl (8.4-10.2); Carbon Dioxide 26 mmol/L (22-30); Chloride 103 mmol/L (98-107); Estimated Creatinine Clearance 107 ml/min; Glucose 100 mg/dl (70-99); Potassium 3.7 mmol/L (3.5-5.1); Sodium 131 mmol/L (135-145); eGFR > 60.00
[2024-02-29] MEDS: NSS 1000 IV ×2 (06:23→17:36)
[2024-02-29] MEDS: NSS (PRESERVATIVE FREE) 10 ML IV ×2 (07:32→19:10)
[2024-02-29] MEDS: PROTONIX IV 40 MG IV ×2 (07:32→19:10)
[2024-02-29 08:39] LABS: Haptoglobin 451 mg/dL (30-200)
--- NOTE | 2024-02-29 09:00 | PTCARENOTE ---
Patient received from forging press operator. Patient resting comfortably in bed. AAO, VSS. No events noted overnight. No complaints of pain at this time. Patient with two guards in room and secured to bed via right ankle. IVF through IV. Plan for
colonoscopy on Saturday. Call hay in reach.
--- NOTE | 2024-02-29 09:15 | W.PN.ID1 ---
Date of Service
Date of Service: February 29, 2024
Today's Communication
DC abx.
ID will sign off.
Assessment / Plan
# Bloody diarrhea x 4 weeks
# Fever - resolved
# Leukocytosis
# Blood loss anemia
- Given chronicity of diarrhea, less likely infectious.
-Suspect IBD.
- Stool many wbc, C. dif neg, O+P neg, Norovirus neg, Stool cx neg.
-DC antibiotic.
- Agree with flex sig, biopsy
# CoNS bacteremia 1 of 2 sets = contaminant.
- Repeat bcx neg.
- No need to treat
# Incarcerated since 11/2023
# Substance abuse
- HIV neg, HCV neg.
ID will sign off.
Chief Complaint
-: Other (Bloody diarrhea)
Subjective / Review of Systems
No further blood in stool
Vital Signs / Physical Exam
Vital Signs
Vital Signs
Temp Pulse Resp BP Pulse Ox
99.1 F 95 22 108/64 96
02/29/24 04:39 02/29/24 06:00 02/29/24 06:00 02/29/24 04:00 02/29/24 02:00
Physical Exam
Constitutional: No Acute Distress and Comfortable
Gastrointestinal: Soft, Non Tender, Non Distended and Normal Bowel Sounds
Objective Data
Lab Data
PT 15.2 Sec (11.4-14.6) H 02/26/24 15:15
INR 1.20 02/26/24 15:15
Estimated Creat Clear 107 ml/min 02/29/24 05:08
Lactic Acid 1.4 mmol/L (0.7-2.0) 02/26/24 21:46
Total Bilirubin 1.0 mg/dl (0.2-1.3) 02/27/24 03:49
AST 23 U/L (17-59) 02/27/24 03:49
ALT 24 U/L (0-50) 02/27/24 03:49
Alkaline Phosphatase 63 U/L (38-126) 02/27/24 03:49
C-Reactive Protein 242.90 mg/L (0.0-10.00) H 02/26/24 15:16
Most recent labs reviewed.
Micro Results:
02/26/24 20:07 Salmonella/Shigella Culture - Final
Feces/Stool No Salmonella, Shigella, Aeromonas or Plesiomonas species
isolated.
Campylobacter Culture - Final
No Campylobacter species isolated.
Shiga Toxin Test - Pending
Stool Leukocytes - Final
02/26/24 20:07 Cryptosporidium/Giardia - Final
Feces/Stool Negative for Cryptosporidium and/or Giardia Lamblia
antigens.
C. difficile GDH Antigen & Toxins - Final
Negative for toxigenic C.difficile
- Final
Negative for Norovirus GI and GII.
02/26/24 20:57 Blood Culture - Preliminary
Blood/Venous No Growth in 48 hours- Final report to follow
02/26/24 16:26 Blood Culture - Preliminary
Blood/Venous No Growth in 48 hours- Final report to follow
02/26/24 16:26 Blood Culture - Preliminary
Blood/Venous Coagulase neg. staphylococcus
Additional testing on request
Gram Stain - Preliminary
02/26/24 CT a/p with IV contrast: Subcentimeter low-attenuation right renal lesions too small to characterize. Markedly limited evaluation of intestinal tract without oral contrast with findings at suggestive of diffuse thickening of the wall of
virtually the entire colon such as pancolitis. No intestinal obstruction, free air, colonic pneumatosis or gross abnormal focal fluid collection.
[2024-02-29 09:58] LABS: Blood Urea Nitrogen 5 mg/dl (9-20); Carbon Dioxide 25 mmol/L (22-30); Estimated Creatinine Clearance 120 ml/min; Potassium 3.8 mmol/L (3.5-5.1); eGFR > 60.00
[2024-02-29 10:02] LABS: Hematocrit 23.8 % (39.0-52.0)
--- NOTE | 2024-02-29 10:20 | W.PN.GI.CBS2 ---
Today's Communication / Plan
-
LRD today, clears tomorrow
Colonoscopy on Saturday
Probiotics added
Assessment / Plan
-
Pt is a 33yo with hx substance abuse from [facility], renal calculus with onset of rectal bleeding for several weeks after tooth infection with abx/ NSAID use. On admission noted with anemia with iron deficiency with
thrombocytosis with elevated CRP, leukocytosis with bandemia/fever and electrolyte imbalance and cT concern for pancolitis. + wt loss 16 lbs since onset.
-rectal bleeding
-iron deficiency anemia
-ct concern for pancolitis
-leukocytosis/fever
-elevated CRP
-electrolyte imbalance
-hypoalbuminemia
-tooth infection with abx/NSAID use at onset of diarrhea
-wt loss
-dysphagia with regurgitation
-hx substance abuse with neg tox screen on admission
-hx renal stones/renal lesion on imaging
PLAN:
Diarrhea with rectal bleeding, fever, leukocytosis with bandemia, elevated CRP and pancolitis noted on CT most likely has inflammatory bowel disease less likely infectious c-diff, giardia/crypto neg cx neg
fecal gemma- P
He tested negative for HIV, hepatitis C and COVID.
Symptoms are improving with less diarrhea and no further rectal bleeding and fever has resolved
Agree with ID antibiotics were DC'd today
Blood culture was positive for staph most likely contaminant repeat blood cultures are negative
Will add probiotics and advance diet to low residue diet today and change to clear liquids for tomorrow
Colonoscopy on Saturday
Subjective
Subjective
Date of Service: February 29, 2024
he is starting to feel better with less diarrhea today and less abdominal cramping no further rectal bleeding
Objective
Data Reviewed
Laboratory Data:
Laboratory Results
02/29/24 09:25
Laboratory Results
PT 15.2 Sec (11.4-14.6) H 02/26/24 15:15
INR 1.20 02/26/24 15:15
Magnesium 2.1 mg/dl (1.6-2.3) 02/28/24 09:31
Total Bilirubin 1.0 mg/dl (0.2-1.3) 02/27/24 03:49
AST 23 U/L (17-59) 02/27/24 03:49
ALT 24 U/L (0-50) 02/27/24 03:49
Alkaline Phosphatase 63 U/L (38-126) 02/27/24 03:49
Lipase 16 U/L (23-300) L 02/26/24 15:16
Vital Signs and I&O:
Vital Signs
Temp Pulse Resp BP Pulse Ox
98.8 F 95 22 108/64 96
02/29/24 07:01 02/29/24 06:00 02/29/24 06:00 02/29/24 04:00 02/29/24 02:00
I&O
02/28/24 02/29/24 03/01/24
06:59 06:59 06:59
Intake Total 318 / 318 4820 / 4820
Output Total 890 / 890
Balance 318 / 318 3930 / 3930
Physical Exam
Physical Exam
Cardiology: Normal Sinus Rhythm
Pulmonary: Clear
GI: Soft, Non Distended, Non Tender and Normal Bowel Sounds
[2024-02-29 10:27] LABS: Calcium 7.1 mg/dl (8.4-10.2); Chloride 103 mmol/L (98-107); Glucose 122 mg/dl (70-99); Sodium 131 mmol/L (135-145)
[2024-02-29] MEDS: VISBIOME 2 CAP PO (11:31)
--- NOTE | 2024-02-29 11:47 | W.PN.NEPH.PH ---
Today's Communication / Plan
-
follow BMP
Assessment/Plan
-
Impression:
Hyponatremia (suspected hypovolemic)
Pancolitis with suspected lower GI bleeding
Anemia
Subcentimeter right renal lesion
History of drug abuse
Plan:
follow BMP
continue IVF
scope per GI
will sign off, call with questions
-
-
Date of Service: February 29, 2024
CC / HPI / ROS
-
Chief Complaint:
hyponatremia
History of Present Illness:
Na up to 131 with NSS
hgb stable
BP stable
Review of Systems:
no CP/SOB
Labs
-
Labs:
WBC 14.7 10^3/uL (4.8-10.8) H 02/27/24 03:49
RBC 3.16 10^6/uL (4.70-6.10) L 02/27/24 03:49
Plt Count 10^3/uL (130-400) 02/27/24 03:49
Sodium 131 mmol/L (135-145) L 02/29/24 09:25
Potassium 3.8 mmol/L (3.5-5.1) 02/29/24 09:25
Chloride 103 mmol/L (98-107) 02/29/24 09:25
Carbon Dioxide 25 mmol/L (22-30) 02/29/24 09:25
BUN 5 mg/dl (9-20) L 02/29/24 09:25
Creatinine 0.8 mg/dL (0.7-1.3) 02/29/24 09:25
eGFR > 60.00 02/29/24 09:25
Glucose 122 mg/dl (70-99) H 02/29/24 09:25
Calcium 7.1 mg/dl (8.4-10.2) L 02/29/24 09:25
Albumin 2.0 g/dl (3.5-5.0) L 02/27/24 03:49
Physical Exam
-
Vital Signs:
Vital Signs
Temp Pulse Resp BP Pulse Ox
99.8 F 95 22 108/64 95
02/29/24 11:29 02/29/24 06:00 02/29/24 06:00 02/29/24 04:00 02/29/24 10:28
Cardiovascular:: Regular rate and rhythm
Respiratory:: Bilateral: Coarse
Lung Excursion:: Normal
Abdomen:: Nontender and Soft
Bowel Sounds:: Normal
Extremity Edema:: None: Bilateral:
--- NOTE | 2024-02-29 12:06 | W.PN.HOSP.TC ---
Today's Communication/Plan
-
still had multiple liquis BM
pending colonoscopy
Assessment / Plan
Assessment / Plan
33yo M with no significant medical history except of drug abuse [facility] (was incarcerated for 3 months) with persistent abd pain, bright red blood in stool, diarrhea, lack of appetite for 3 weeks. 1 unit PRBC
given on 02/26/24. Neg stool Cx so Id stopped Abx. Pending colonoscopy on 03/02/24. Hyponatremia improved on hidration
AP:
#Pancolitis (infectious vs inflammatory)
#Lower GIB with acute blood loss anemia with NORBERTO
calprotectin pending
Multiple WBC in the stool
Cryptosporidia, Giardia and C.diff neg
Two large bore IV and follow serial Hgb, transfuse if further drop by 2.0 or more or if Hgb <8
PPI
CLD on admission and GI for further mgmt: colonoscopy planned on 03/02/24
TSH WNL, lipase not elevated
Zosyn switched to Ceftriaxone and with neg stoolCx - ID stopped Abx
Pending COlonoscopy on 03/02/24
#COag neg staph in one set of Bcx, r/o bacteremia
repeated Bcx neg, suspect contamination. ID consult: confirmed that no need to treat
#Hyponatremia
Most likely hypovolemic
Hypoosmolar
UOsm 141
Radha low
BMP q4h
Nephrology consult: agree with NS and serial BMP
S/P 3% saline 250ml bolus
S.P D5W for rapid correction on 02/27/24
target increase by 4-6 meq/24h
#Leukocytosis
#Thrombocytopenia
Most likely either 2/2 infection, IBD or 2/2 hemoconcentration
follow CBC
#Subcentimeter R renal lesions
too small to characterize
mgmt as per GI - advise close outpatient follow up
#Hypokalemia
2/2 diarrhea
replete and follow potassium
check Mg
DVT ppx SCDs
Full code
I have spent at least 36 min reviewing chart, test results, communication with consultants and direct patient care
Anticipated Discharge: > 48 hours
Subjective/Interval History
-
Date of Service: February 29, 2024
Objective Data
-
Labs:
Laboratory Results
02/29/24 02/29/24 02/29/24
01:01 03:04 05:08
Hgb 8.0 L
Hct 22.7 L
Sodium 130 L 131 L
Potassium 3.7 3.7
Chloride 102 103
Carbon Dioxide 25 26
BUN 3 L 4 L
Creatinine 0.8 0.9
Glucose 104 H 100 H
Calcium 7.1 L 7.2 L
02/29/24 02/29/24 02/29/24
08:00 09:25 12:05
Hgb Cancelled 8.0 L
Hct Cancelled 23.8 L
Sodium 131 L Pending
Potassium 3.8 Pending
Chloride 103 Pending
Carbon Dioxide 25 Pending
BUN 5 L Pending
Creatinine 0.8 Pending
Glucose 122 H Pending
Calcium 7.1 L Pending
02/29/24 02/29/24 02/29/24
15:00 20:00 21:00
Hgb Cancelled Cancelled Cancelled
Hct Cancelled Cancelled Cancelled
Sodium
Potassium
Chloride
Carbon Dioxide
BUN
Creatinine
Glucose
Calcium
Vital Signs:
Vital Signs
Temp Pulse Resp BP Pulse Ox
99.8 F 95 22 108/64 95
02/29/24 11:29 02/29/24 06:00 02/29/24 06:00 02/29/24 04:00 02/29/24 10:28
I&O
02/28/24 02/29/24 03/01/24
06:59 06:59 06:59
Intake Total 318 / 318 4820 / 4820
Output Total 890 / 890
Balance 318 / 318 3930 / 3930
Review of Systems
-
History Source: Patient
All other systems: Reviewed and negative
Abdomen/GI: Reports Diarrhea; Denies Bloody Stools
Physical Exam
-
General: No Apparent Distress
HEENT: Normocephalic, Atraumatic and Moist Mucous Membranes
Respiratory: Clear to Auscultation
GI: Soft, Nontender and Distended
Genito-urinary: No Costovertebral Tender
Musculoskeletal: No Clubbing, No Cyanosis and No Edema
Skin: Warm
Neuro: Awake, Alert, Oriented and AO x 3
[2024-02-29] MEDS: FERRLECIT 110 MG IV (13:28)
[2024-02-29 14:15] LABS: Blood Urea Nitrogen 5 mg/dl (9-20); Calcium 7.2 mg/dl (8.4-10.2); Carbon Dioxide 26 mmol/L (22-30); Chloride 102 mmol/L (98-107); Estimated Creatinine Clearance 120 ml/min; Glucose 119 mg/dl (70-99); Potassium 3.8 mmol/L (3.5-5.1); Sodium 132 mmol/L (135-145); eGFR > 60.00
--- NOTE | 2024-02-29 21:41 | PTCARENOTE ---
Pt using BSC with assist of one for blood-tinged bm's. More alert tonight. Not as drowsy. Temp 101 given Tylenol as ordered. Rest of VSS. SR/ST on CM. IVF's infusing at 100ml/hr. Emily urine in urinal. Admits to abdominal cramping. Rest of
assessment as documented. Turns self. Remains shackled on left ankle with 2 guards at bedside. Call hay remains within reach. Will continue to monitor.
[2024-03-01] VITALS (12 sets, daily range): BP systolic 99–115; BP diastolic 49–76
[2024-03-01] MEDS: NSS 1000 IV ×2 (02:21→15:11)
[2024-03-01 04:59] LABS: Hematocrit 23.5 % (39.0-52.0); Hemoglobin 7.7 g/dL (13.0-18.0); Mean Corp Hgb Conc. 32.8 g/dL (33.0-37.0); Mean Corpuscular Hgb 28.2 pg (27.0-31.0); Mean Corpuscular Volume 86.1 fL (80.0-94.0); Mean Platelet Volume 8.4 fL (7.4-10.4); Platelet Count 410 10^3/uL (130-400); Red Blood Cell Count 2.73 10^6/uL (4.70-6.10); Red Cell Dist. Width 13.9 % (11.5-14.5); White Blood Cell Count 10.7 10^3/uL (4.8-10.8)
[2024-03-01 05:18] LABS: ALT (SGPT) 28 U/L (0-50); AST (SGOT) 29 U/L (17-59); Albumin 1.7 g/dl (3.5-5.0); Alkaline Phosphatase 100 U/L (38-126); Blood Urea Nitrogen 5 mg/dl (9-20); Carbon Dioxide 27 mmol/L (22-30); Chloride 105 mmol/L (98-107); Estimated Creatinine Clearance 120 ml/min; Glucose 106 mg/dl (70-99); Potassium 3.3 mmol/L (3.5-5.1); Sodium 134 mmol/L (135-145); Total Bilirubin 0.2 mg/dl (0.2-1.3); eGFR > 60.00
[2024-03-01 05:24] LABS: Segmented Neutrophils 52 % (42-75)
[2024-03-01 05:25] LABS: Absolute Neutrophils -Man Diff 8.1 10^3/uL (1.4-6.5); Band Neutrophils 24 % (0-3); Eosinophils 3 % (0-6); Lymphocytes 13 % (20-51); Metamyelocytes 1 % (-); Monocytes 6 % (2-9); Myelocytes 1 % (-); Platelets Checked Yes
[2024-03-01 05:27] LABS: Anisocytosis 2+; Hypochromasia 3+; Macrocytosis 1+; Microcytosis 2+; Normal RBC Morphology No
[2024-03-01 05:28] LABS: Poikilocytosis Slight; Total Cells Counted 100
[2024-03-01] MEDS: VISBIOME 2 CAP PO (08:11)
[2024-03-01] MEDS: NSS (PRESERVATIVE FREE) 10 ML IV ×2 (08:11→19:49)
[2024-03-01] MEDS: PROTONIX IV 40 MG IV ×2 (08:11→19:49)
[2024-03-01] MEDS: KCL 270 MEQ IV (08:11)
--- NOTE | 2024-03-01 08:51 | W.PN.ID1 ---
Date of Service
Date of Service: March 01, 2024
Today's Communication
-Suspect IBD.
- Fever can be due to IBD
- For flex sig, biopsy tomorrow
-No objection to starting steroid after flex sig.
- Observe off abx.
-ID will sign off.
Assessment / Plan
# Bloody diarrhea x >4 weeks
# Fever - persists
# Leukocytosis - resolved
# Blood loss anemia
- Given chronicity of diarrhea, less likely infectious.
- Stool many wbc, C. dif neg, O+P neg, Norovirus neg, Stool cx neg.
-Suspect IBD.
- Fever can be due to IBD
- For flex sig, biopsy tomorrow
-No objection to starting steroid after flex sig.
- Observe off abx.
# CoNS bacteremia 1 of 2 sets = contaminant.
- Repeat bcx neg.
- No need to treat
# Incarcerated since 11/2023
# Substance abuse
- HIV neg, HCV neg.
ID will sign off.
Chief Complaint
-: Other (Bloody diarrhea)
Subjective / Review of Systems
Still with diarrhea - blood tinged.
Vital Signs / Physical Exam
Vital Signs
Vital Signs
Temp Pulse Resp BP Pulse Ox
98.9 F 104 16 101/60 96
03/01/24 07:33 03/01/24 06:00 03/01/24 06:00 03/01/24 06:00 03/01/24 06:00
Selected Entries
02/29/24
19:28
Temp 101 F H
Physical Exam
Constitutional: No Acute Distress
Gastrointestinal: Soft, Non Tender, Non Distended and Normal Bowel Sounds
Objective Data
Lab Data
Lab Results
03/01/24 04:38
03/01/24 04:38
PT 15.2 Sec (11.4-14.6) H 02/26/24 15:15
INR 1.20 02/26/24 15:15
Estimated Creat Clear 120 ml/min 03/01/24 04:38
Lactic Acid 1.4 mmol/L (0.7-2.0) 02/26/24 21:46
Total Bilirubin 0.2 mg/dl (0.2-1.3) 03/01/24 04:38
AST 29 U/L (17-59) 03/01/24 04:38
ALT 28 U/L (0-50) 03/01/24 04:38
Alkaline Phosphatase 100 U/L (38-126) 03/01/24 04:38
C-Reactive Protein 242.90 mg/L (0.0-10.00) H 02/26/24 15:16
Most recent labs reviewed.
Micro Results:
02/26/24 20:57 Blood Culture - Preliminary
Blood/Venous No Growth in 72 hours- Final report to follow
02/26/24 16:26 Blood Culture - Preliminary
Blood/Venous No Growth in 72 hours- Final report to follow
02/26/24 20:07 Salmonella/Shigella Culture - Final
Feces/Stool No Salmonella, Shigella, Aeromonas or Plesiomonas species
isolated.
Campylobacter Culture - Final
No Campylobacter species isolated.
Shiga Toxin Test - Pending
Stool Leukocytes - Final
02/26/24 20:07 Cryptosporidium/Giardia - Final
Feces/Stool Negative for Cryptosporidium and/or Giardia Lamblia
antigens.
C. difficile GDH Antigen & Toxins - Final
Negative for toxigenic C.difficile
- Final
Negative for Norovirus GI and GII.
02/26/24 16:26 Blood Culture - Preliminary
Blood/Venous Coagulase neg. staphylococcus
Additional testing on request
Gram Stain - Preliminary
02/26/24 CT a/p with IV contrast: Subcentimeter low-attenuation right renal lesions too small to characterize. Markedly limited evaluation of intestinal tract without oral contrast with findings at suggestive of diffuse thickening of the wall of
virtually the entire colon such as pancolitis. No intestinal obstruction, free air, colonic pneumatosis or gross abnormal focal fluid collection.
--- NOTE | 2024-03-01 08:57 | W.PN.GI.CBS2 ---
Today's Communication / Plan
-
colonoscopy saturday
Assessment / Plan
-
Pt is a 33yo with hx substance abuse from [facility], renal calculus with onset of rectal bleeding for several weeks after tooth infection with abx/ NSAID use. On admission noted with anemia with iron deficiency with
thrombocytosis with elevated CRP, leukocytosis with bandemia/fever and electrolyte imbalance and cT concern for pancolitis. + wt loss 16 lbs since onset.
-rectal bleeding
-iron deficiency anemia
-ct concern for pancolitis
-leukocytosis/fever
-elevated CRP
-electrolyte imbalance
-hypoalbuminemia
-tooth infection with abx/NSAID use at onset of diarrhea
-wt loss
-dysphagia with regurgitation
-hx substance abuse with neg tox screen on admission
-hx renal stones/renal lesion on imaging
PLAN:
Diarrhea with rectal bleeding, fever, leukocytosis with bandemia, elevated CRP and pancolitis noted on CT most likely has inflammatory bowel disease less likely infectious c-diff, giardia/crypto neg cx neg
fecal gemma- P
He tested negative for HIV, hepatitis C and COVID.
Symptoms were improving and fever had resolved, but yesterday he started to have multiple episodes of watery stools again with fever, antibiotics were also DC'd yesterday
Blood culture was positive for staph most likely contaminant repeat blood cultures are negative
added probiotics
Colonoscopy on Saturday
Subjective
Subjective
Date of Service: March 01, 2024
diarrhea worsened again yesterday with multiple episodes of watery blood-tinged stools and also spiked a fever. His abdominal pain though has improved and no nausea vomiting, he did tolerate diet yesterday
Objective
Data Reviewed
Laboratory Data:
Laboratory Results
03/01/24 04:38
03/01/24 04:38
Laboratory Results
PT 15.2 Sec (11.4-14.6) H 02/26/24 15:15
INR 1.20 02/26/24 15:15
Magnesium 2.1 mg/dl (1.6-2.3) 02/28/24 09:31
Total Bilirubin 0.2 mg/dl (0.2-1.3) 03/01/24 04:38
AST 29 U/L (17-59) 03/01/24 04:38
ALT 28 U/L (0-50) 03/01/24 04:38
Alkaline Phosphatase 100 U/L (38-126) 03/01/24 04:38
Lipase 16 U/L (23-300) L 02/26/24 15:16
Vital Signs and I&O:
Vital Signs
Temp Pulse Resp BP Pulse Ox
98.9 F 104 16 101/60 96
03/01/24 07:33 03/01/24 06:00 03/01/24 06:00 03/01/24 06:00 03/01/24 06:00
I&O
02/29/24 03/01/24 03/02/24
06:59 06:59 06:59
Intake Total 4820 / 4820 2540 / 2540
Output Total 890 / 890 1450 / 1450
Balance 3930 / 3930 1090 / 1090
Physical Exam
Physical Exam
Cardiology: Normal Sinus Rhythm
Pulmonary: Clear
GI: Soft, Non Distended, Non Tender and Normal Bowel Sounds
--- NOTE | 2024-03-01 10:43 | W.PN.HOSP.TC ---
Today's Communication/Plan
-
replete potassium
Colonoscopy in AM
Patient feeling better, diarrhea seemed to start improving
Assessment / Plan
Assessment / Plan
33yo M with no significant medical history except of drug abuse brought from [facility] (was incarcerated for 3 months) with persistent abd pain, bright red blood in stool, diarrhea, lack of appetite for 3 weeks. 1 unit PRBC
given on 02/26/24. Neg stool Cx so Id stopped Abx. Pending colonoscopy on 03/02/24. Hyponatremia improved on hydration
AP:
#Pancolitis (infectious vs inflammatory)
#Lower GIB with acute blood loss anemia with NORBERTO
calprotectin pending
Multiple WBC in the stool
Cryptosporidia, Giardia and C.diff neg
Two large bore IV and follow serial Hgb, transfuse if further drop by 2.0 or more or if Hgb <8
PPI
CLD on admission and GI for further mgmt: colonoscopy planned on 03/02/24
TSH WNL, lipase not elevated
Zosyn switched to Ceftriaxone and with neg stoolCx - ID stopped Abx
Pending Colonoscopy on 03/02/24
#COag neg staph in one set of Bcx, r/o bacteremia
repeated Bcx neg, suspect contamination. ID consult: confirmed that no need to treat
#Hyponatremia
Most likely hypovolemic
Hypoosmolar
UOsm 141
Radha low
BMP q4h
Nephrology consult: agree with NS and serial BMP
S/P 3% saline 250ml bolus
S.P D5W for rapid correction on 02/27/24
target increase by 4-6 meq/24h
#Leukocytosis
#Thrombocytopenia
Most likely either 2/2 infection, IBD or 2/2 hemoconcentration
follow CBC
#Subcentimeter R renal lesions
too small to characterize
mgmt as per GI - advise close outpatient follow up
#Hypokalemia
2/2 diarrhea
replete and follow potassium
check Mg
DVT ppx SCDs
Full code
I have spent at least 36 min reviewing chart, test results, communication with consultants and direct patient care
Anticipated Discharge: > 48 hours
Subjective/Interval History
-
Date of Service: March 01, 2024
Objective Data
-
Labs:
Laboratory Results
03/01/24
04:38
WBC 10.7
Hgb 7.7 L
Hct 23.5 L
Plt Count 410 H D
Sodium 134 L
Potassium 3.3 L
Chloride 105
Carbon Dioxide 27
BUN 5 L
Creatinine 0.8
Glucose 106 H
Calcium 7.0 L
Total Bilirubin 0.2
AST 29
ALT 28
Alkaline Phosphatase 100
Vital Signs:
Vital Signs
Temp Pulse Resp BP Pulse Ox
98.9 F 112 14 106/66 98
03/01/24 07:33 03/01/24 08:03 03/01/24 08:03 03/01/24 08:03 03/01/24 09:19
I&O
02/29/24 03/01/24 03/02/24
06:59 06:59 06:59
Intake Total 4820 / 4820 2540 / 2540 480 / 480
Output Total 890 / 890 1450 / 1450 200 / 200
Balance 3930 / 3930 1090 / 1090 280 / 280
Review of Systems
-
History Source: Patient
All other systems: Reviewed and negative
Abdomen/GI: Reports Diarrhea
Physical Exam
-
General: No Apparent Distress
HEENT: Normocephalic
Respiratory: Clear to Auscultation
Cardiac: Regular Rhythm
GI: Soft, Nontender, Normal Bowel Sounds, Distended and Other (passing gas)
Genito-urinary: No Costovertebral Tender
Musculoskeletal: No Clubbing, No Cyanosis and No Edema
Neuro: Awake, Alert, Oriented and AO x 3
Psych: Calm
[2024-03-01] MEDS: NULYTELY SOLUTION 4 LITERS PO (13:21)
[2024-03-01] MEDS: FERRLECIT 110 MG IV (15:11)
[2024-03-01] MEDS: TYLENOL 650 MG PO (15:12)
--- NOTE | 2024-03-01 18:18 | PTCARENOTE ---
see nursing shift assessment. sinus tachy on monitor. pt had temp of 102 this afternoon. hospitalist made aware and instructed to give tylenol as per order. no new orders at this time. pt started colonoscoy prep at 1300 and is having liquid brown
bms with no blood visible.
--- NOTE | 2024-03-01 20:20 | PTCARENOTE ---
Pt received from previous RN. Pt resting in bed. Two guards present in room, Pt left ankle shackled to bed. Pt calm, cooperative. Pt NSR on monitor. AAO. RA, lungs clear. Loose frequent bms, actively bowel prepping for colonoscopy Saturday AM. makes
needs known. Call light in reach.
[2024-03-02] VITALS (19 sets, daily range): BP systolic 83–115; BP diastolic 44–66
[2024-03-02] MEDS: DULCOLAX 20 MG PO (00:48)
[2024-03-02 05:18] LABS: ALT (SGPT) 31 U/L (0-50); AST (SGOT) 30 U/L (17-59); Albumin 1.8 g/dl (3.5-5.0); Alkaline Phosphatase 111 U/L (38-126); Blood Urea Nitrogen 3 mg/dl (9-20); Calcium 7.3 mg/dl (8.4-10.2); Carbon Dioxide 28 mmol/L (22-30); Chloride 100 mmol/L (98-107); Estimated Creatinine Clearance > 125 ml/min; Glucose 99 mg/dl (70-99); Hemoglobin 9.1 g/dL (13.0-18.0); Mean Corp Hgb Conc. 33.7 g/dL (33.0-37.0); Mean Corpuscular Hgb 28.9 pg (27.0-31.0); Mean Corpuscular Volume 85.7 fL (80.0-94.0); Mean Platelet Volume 8.6 fL (7.4-10.4); Platelet Count 542 10^3/uL (130-400); Potassium 3.5 mmol/L (3.5-5.1); Red Blood Cell Count 3.15 10^6/uL (4.70-6.10); Red Cell Dist. Width 14.3 % (11.5-14.5); Sodium 131 mmol/L (135-145); Total Bilirubin 0.4 mg/dl (0.2-1.3); Total Protein 4.4 g/dl (6.3-8.2); eGFR > 60.00
[2024-03-02] MEDS: NSS 1000 IV ×2 (06:20→17:43)
[2024-03-02 08:21] LABS: Band Neutrophils 18 % (0-3); Lymphocytes 15 % (20-51); Metamyelocytes 2 % (-); Monocytes 8 % (2-9); Myelocytes 2 % (-); Segmented Neutrophils 55 % (42-75)
[2024-03-02 08:22] LABS: Platelets Checked Yes; Total Cells Counted 100
[2024-03-02 08:23] LABS: Anisocytosis 1+; Microcytosis 1+; Normal RBC Morphology No
[2024-03-02 08:24] LABS: Hypochromasia 1+
[2024-03-02] MEDS: NSS (PRESERVATIVE FREE) 10 ML IV ×2 (09:28→20:23)
[2024-03-02] MEDS: PROTONIX IV 40 MG IV ×2 (09:28→20:24)
[2024-03-02] MEDS: VISBIOME 2 CAP PO (09:28)
--- NOTE | 2024-03-02 12:47 | W.PN.HOSP.TC ---
Today's Communication/Plan
-
Colonoscopy and further mgmt by GI
Assessment / Plan
Assessment / Plan
33yo M with no significant medical history except of drug abuse brought from [facility] (was incarcerated for 3 months) with persistent abd pain, bright red blood in stool, diarrhea, lack of appetite for 3 weeks. 1 unit PRBC
given on 02/26/24. Neg stool Cx so Id stopped Abx. Pending colonoscopy on 03/02/24. Hyponatremia improved on hydration
AP:
#Pancolitis (infectious vs inflammatory)
#Lower GIB with acute blood loss anemia with NORBERTO
calprotectin pending
Multiple WBC in the stool
Cryptosporidia, Giardia and C.diff neg
Two large bore IV and follow serial Hgb, transfuse if further drop by 2.0 or more or if Hgb <8
PPI
CLD on admission and GI for further mgmt: colonoscopy planned on 03/02/24
TSH WNL, lipase not elevated
Zosyn switched to Ceftriaxone and with neg stoolCx - ID stopped Abx
Pending Colonoscopy on 03/02/24
#COag neg staph in one set of Bcx, r/o bacteremia
repeated Bcx neg, suspect contamination. ID consult: confirmed that no need to treat
#Hyponatremia - resolved on IVF
Most likely hypovolemic
Hypoosmolar
UOsm 141
Radha low
BMP q4h
Nephrology consult: agree with NS and serial BMP
S/P 3% saline 250ml bolus
S.P D5W for rapid correction on 02/27/24
target increase by 4-6 meq/24h
#Leukocytosis
#Thrombocytopenia
Most likely either 2/2 infection, IBD or 2/2 hemoconcentration
follow CBC
#Subcentimeter R renal lesions
#Hx of nephrolithiasis
too small to characterize
advise close outpatient follow up
#Hypokalemia
2/2 diarrhea
replete and follow potassium
DVT ppx SCDs
Full code
I have spent at least 36 min reviewing chart, test results, communication with consultants and direct patient care
Anticipated Discharge: 24 - 48 hours
Subjective/Interval History
-
Date of Service: March 02, 2024
Objective Data
-
Labs:
Laboratory Results
03/02/24
04:36
WBC 11.0 H
Hgb 9.1 L
Hct 27.0 L
Plt Count 542 H D
Sodium 131 L
Potassium 3.5
Chloride 100
Carbon Dioxide 28
BUN 3 L
Creatinine 0.7
Glucose 99
Calcium 7.3 L
Total Bilirubin 0.4
AST 30
ALT 31
Alkaline Phosphatase 111
Vital Signs:
Vital Signs
Temp Pulse Resp BP Pulse Ox
98.1 F 104 20 85/50 98
03/02/24 12:30 03/02/24 12:40 03/02/24 12:40 03/02/24 12:40 03/02/24 12:40
I&O
03/01/24 03/02/24 03/03/24
06:59 06:59 06:59
Intake Total 2540 / 2540 3080 / 3080
Output Total 1450 / 1450 800 / 800
Balance 1090 / 1090 2280 / 2280
Review of Systems
-
History Source: Patient
All other systems: Reviewed and negative
Physical Exam
-
General: Well Developed and Well Nourished
HEENT: Normocephalic
Respiratory: Clear to Auscultation
Cardiac: Regular Rhythm
GI: Soft
Rectal: Other (clots in stool)
Musculoskeletal: No Clubbing, No Cyanosis and No Edema
Skin: Warm
Neuro: Awake, Alert and Oriented
[2024-03-02] MEDS: PENTASA 1000 MG PO ×3 (14:02→22:59)
[2024-03-02] MEDS: FERRLECIT 110 MG IV (14:02)
[2024-03-02] MEDS: PPD5TEST 5 UNITS INTRADERMA (14:47)
[2024-03-02] MEDS: SOLU-MEDROL PF 20 MG IV (17:43)
--- NOTE | 2024-03-02 18:37 | PTCARENOTE ---
Rec'd pt this AM. Incontinent of frequent, large, loose stools. Colonoscopy completed. IVF infusing. Pt with good appetite.
[2024-03-02] MEDS: TYLENOL 650 MG PO (20:14)
--- NOTE | 2024-03-02 20:33 | PTCARENOTE ---
Pt received from previous RN. Pt AA0. Sinus tach on monitor, HR 106. Respirations even and unlabored. Bowel movements have slowed down, Pt admits to slight abdominal tenderness. Pt with 102.1 fever, given ordered Tylenol. N/s going at 125 ml/hr
through left hand IV. Denies further needs at this time. Call light in reach.
[2024-03-02 21:33] LABS: Hepatitis B Surface Antigen Negative (Negative)
[2024-03-02 21:50] LABS: Hepatitis B Surface Antibody Positive
[2024-03-02 22:37] LABS: Hepatitis A Antibody, Total Negative (Negative)
[2024-03-03] VITALS (12 sets, daily range): BP systolic 91–124; BP diastolic 57–73
[2024-03-03] MEDS: SOLU-MEDROL PF 20 MG IV ×3 (00:46→17:05)
[2024-03-03] MEDS: NSS 1000 IV ×3 (00:48→18:08)
[2024-03-03 01:13] LABS: Calprotectin, Fecal >3000 ug/g (<=49)
[2024-03-03 04:53] LABS: Hematocrit 24.3 % (39.0-52.0); Mean Corp Hgb Conc. 32.9 g/dL (33.0-37.0); Mean Corpuscular Hgb 28.6 pg (27.0-31.0); Mean Corpuscular Volume 86.8 fL (80.0-94.0); Mean Platelet Volume 8.4 fL (7.4-10.4); Platelet Count 408 10^3/uL (130-400); Red Cell Dist. Width 14.3 % (11.5-14.5); White Blood Cell Count 7.2 10^3/uL (4.8-10.8)
[2024-03-03 05:12] LABS: ALT (SGPT) 24 U/L (0-50); AST (SGOT) 21 U/L (17-59); Albumin 1.1 g/dl (3.5-5.0); Alkaline Phosphatase 91 U/L (38-126); Blood Urea Nitrogen 4 mg/dl (9-20); Calcium 7.5 mg/dl (8.4-10.2); Carbon Dioxide 29 mmol/L (22-30); Chloride 101 mmol/L (98-107); Estimated Creatinine Clearance > 125 ml/min; Glucose 137 mg/dl (70-99); Potassium 3.7 mmol/L (3.5-5.1); Sodium 133 mmol/L (135-145); Total Bilirubin 0.2 mg/dl (0.2-1.3); Total Protein 4.3 g/dl (6.3-8.2); eGFR > 60.00
[2024-03-03 05:25] LABS: Band Neutrophils 30 % (0-3)
[2024-03-03 05:26] LABS: Absolute Neutrophils -Man Diff 5.6 10^3/uL (1.4-6.5); Lymphocytes 18 % (20-51); Monocytes 3 % (2-9); Platelets Checked Yes; Segmented Neutrophils 49 % (42-75); Toxic Granulation 1+; Vacuolated Segs Occasional
[2024-03-03 05:33] LABS: Total Cells Counted 100
[2024-03-03 06:05] LABS: Hypochromasia OCC; Normal RBC Morphology No; Polychromasia Occasional
[2024-03-03 06:06] LABS: Basophilic Stippling Occasional
--- NOTE | 2024-03-03 08:57 | W.PN.HOSP.TC ---
Today's Communication/Plan
-
Stable for telemetry
Assessment / Plan
Assessment / Plan
33yo M with no significant medical history except of drug abuse [facility] for [facility] with persistent abd pain, bright red blood in stool, diarrhea, lack of appetite for 3 weeks. 1 unit PRBC
given on 02/26/24. Neg stool Cx so Id stopped Abx. Pending colonoscopy on 03/02/24. Hyponatremia improved on hydration
AP:
#Pancolitis (infectious vs inflammatory)
#Lower GIB with acute blood loss anemia with NORBERTO
TSH WNL, lipase not elevated
Appreciate ID input, monitor off antibiotic
Appreciate GI input, status post colonoscopy 03/02/24 showing ulcerated and congested mucosa of entire colon, consistent with ulcerative colitis, biopsied
Continue steroids, mesalamine, probiotics
Advance to low residue as per GI
#Coag neg staph in one set of Bcx, r/o bacteremia
Repeated Bcx neg, suspect contamination. ID consult: confirmed that no need to treat
# Hypovolemic hyponatremia
Appreciate nephrology input, status post hypertonic saline
Hyponatremia improved on IV fluids
#Leukocytosis
#Thrombocytopenia
Most likely from IBD or 2/2 hemoconcentration
Follow CBC
#Subcentimeter R renal lesions
#Hx of nephrolithiasis
too small to characterize
advise close outpatient follow up
#Hypokalemia
2/2 diarrhea
Repleted and resolved
DVT prophylaxis�SCDs
Full code
Total time spent to see the patient on the floor, examine the patient, review data and lab results, discuss treatment plan with patient, nursing staff around 38 minutes.
Physical Exam
General: No acute distress
HEENT: Normocephalic, Atraumatic, EOMI, MMM
Respiratory: Clear to Auscultation bilaterally
Cardiac: Normal S1/S2, Regular Rate and Rhythm
GI: Soft, Nontender, Nondistended, Normal Bowel Sounds
Extremities: No Clubbing, Cyanosis, or Edema
Neuro: Nonfocal/Grossly Intact
Psych: Calm, Cooperative
Derm: No Visible lesions
Anticipated Discharge: 24 - 48 hours
Subjective/Interval History
-
Date of Service: March 03, 2024
Patient having mild rectal bleeding, improved from prior. No fever, no abdominal pain, no vomiting.
Objective Data
-
Labs:
Laboratory Results
03/03/24
04:34
WBC 7.2
Hgb 8.0 L
Hct 24.3 L
Plt Count 408 H D
Sodium 133 L
Potassium 3.7
Chloride 101
Carbon Dioxide 29
BUN 4 L
Creatinine 0.7
Glucose 137 H
Calcium 7.5 L
Total Bilirubin 0.2
AST 21
ALT 24
Alkaline Phosphatase 91
Vital Signs:
Vital Signs
Temp Pulse Resp BP Pulse Ox
98.3 F 78 19 109/60 99
03/03/24 04:08 03/03/24 04:00 03/03/24 04:00 03/03/24 04:00 03/02/24 23:54
I&O
03/02/24 03/03/24 03/04/24
06:59 06:59 06:59
Intake Total 3080 / 3080 3290 / 3290
Output Total 800 / 800 1450 / 1450
Balance 2280 / 2280 1840 / 1840
[2024-03-03] MEDS: NSS (PRESERVATIVE FREE) 10 ML IV ×2 (09:06→21:04)
[2024-03-03] MEDS: PROTONIX IV 40 MG IV ×2 (09:06→21:04)
[2024-03-03] MEDS: VISBIOME 2 CAP PO (09:06)
[2024-03-03] MEDS: PENTASA 1000 MG PO ×4 (09:06→21:03)
--- NOTE | 2024-03-03 11:27 | W.PN.GI.CBS2 ---
Today's Communication / Plan
-
adv diet to LRD
continue steroids, mesalamine and probiotics
follow fever curve
Assessment / Plan
-
Pt is a 33yo with hx substance abuse from [facility], renal calculus with onset of rectal bleeding for several weeks after tooth infection with abx/ NSAID use. On admission noted with anemia with iron deficiency with
thrombocytosis with elevated CRP, leukocytosis with bandemia/fever and electrolyte imbalance and cT concern for pancolitis. + wt loss 16 lbs since onset.
-rectal bleeding
-iron deficiency anemia
-ct concern for pancolitis
-leukocytosis/fever
-elevated CRP
-electrolyte imbalance
-hypoalbuminemia
-tooth infection with abx/NSAID use at onset of diarrhea
-wt loss
-dysphagia with regurgitation
-hx substance abuse with neg tox screen on admission
-hx renal stones/renal lesion on imaging
PLAN:
Status post colonoscopy yesterday and findings are consistent with severe ulcerative pancolitis
Started on Solu-Medrol 20 mg every 8 hours and mesalamine
If symptoms do not improve in the next 48 hours on steroids will start him on Remicade
Hepatitis serologies and Quantiferon Gold pending, PPD administered 03/02, CXR normal
His fever also seems to be slowly resolving he is afebrile today will need to follow closely if he starts to spike again on steroids May need to consider antibiotics to prevent translocation although typically for UC no indication for antibiotics
He tested negative for HIV, hepatitis C and COVID.
Blood culture was positive for staph most likely contaminant repeat blood cultures are negative
Continue probiotics
Subjective
Subjective
Date of Service: March 03, 2024
Starting to feel slightly improved with decreased blood in the stools and decreasing diarrhea no abdominal pain, did spike a fever yesterday but today afebrile
Objective
Data Reviewed
Laboratory Data:
Laboratory Results
03/03/24 04:34
03/03/24 04:34
Laboratory Results
PT 15.2 Sec (11.4-14.6) H 02/26/24 15:15
INR 1.20 02/26/24 15:15
Magnesium 2.1 mg/dl (1.6-2.3) 02/28/24 09:31
Total Bilirubin 0.2 mg/dl (0.2-1.3) 03/03/24 04:34
AST 21 U/L (17-59) 03/03/24 04:34
ALT 24 U/L (0-50) 03/03/24 04:34
Alkaline Phosphatase 91 U/L (38-126) 03/03/24 04:34
Lipase 16 U/L (23-300) L 02/26/24 15:16
Vital Signs and I&O:
Vital Signs
Temp Pulse Resp BP Pulse Ox
98.2 F 78 19 109/60 99
03/03/24 07:31 03/03/24 04:00 03/03/24 04:00 03/03/24 04:00 03/02/24 23:54
I&O
03/02/24 03/03/24 03/04/24
06:59 06:59 06:59
Intake Total 3080 / 3080 3290 / 3290
Output Total 800 / 800 1450 / 1450 250 / 250
Balance 2280 / 2280 1840 / 1840 -250 / -250
03/02/24 CXR
IMPRESSION:
No radiographic evidence of acute cardiopulmonary abnormality.
Physical Exam
Physical Exam
Cardiology: Normal Sinus Rhythm
Pulmonary: Clear
GI: Soft, Non Distended, Non Tender and Normal Bowel Sounds
[2024-03-03 14:18] LABS: Hepatitis B Core Ab, IgM Negative (Negative)
[2024-03-03] MEDS: FERRLECIT 110 MG IV (14:28)
--- NOTE | 2024-03-03 16:54 | CM ---
Patient from [facility] with Hx substance abuse with lower GI bleed, pancolitis. Receiving IV Solumedrol, IVF. Diet advanced to low residue. Tox screen noted.
The phone for nurse report to [facility] Nurse [phone], fax [phone]. If the [phone] is not working call Britt at [phone].
Plan return to [facility] when medically ready.
--- NOTE | 2024-03-03 17:30 | PTCARENOTE ---
Pt transferred to 3W, report given to Rachel MOREAU
[2024-03-03] MEDS: TYLENOL 650 MG PO (21:07)
[2024-03-04] MEDS: SOLU-MEDROL PF 20 MG IV ×3 (00:08→17:05)
[2024-03-04 03:31] VITALS: BP 110/70
[2024-03-04] MEDS: TYLENOL 650 MG PO (06:00)
[2024-03-04 06:27] LABS: Hematocrit 23.8 % (39.0-52.0); Hemoglobin 7.9 g/dL (13.0-18.0); Mean Corp Hgb Conc. 33.2 g/dL (33.0-37.0); Mean Corpuscular Hgb 27.6 pg (27.0-31.0); Mean Corpuscular Volume 83.2 fL (80.0-94.0); Mean Platelet Volume 8.1 fL (7.4-10.4); Platelet Count 451 10^3/uL (130-400); Red Blood Cell Count 2.86 10^6/uL (4.70-6.10); Red Cell Dist. Width 14.3 % (11.5-14.5); White Blood Cell Count 8.2 10^3/uL (4.8-10.8)
[2024-03-04 07:23] LABS: Blood Urea Nitrogen 3 mg/dl (9-20); Calcium 7.4 mg/dl (8.4-10.2); Carbon Dioxide 29 mmol/L (22-30); Chloride 101 mmol/L (98-107); Estimated Creatinine Clearance > 125 ml/min; Glucose 143 mg/dl (70-99); Magnesium 2.1 mg/dl (1.6-2.3); Phosphorus 2.1 mg/dl (2.5-4.5); Potassium 3.5 mmol/L (3.5-5.1); Sodium 133 mmol/L (135-145); eGFR > 60.00
[2024-03-04 07:30] VITALS: BP 112/68
[2024-03-04] MEDS: PENTASA 1000 MG PO ×4 (07:49→21:19)
[2024-03-04] MEDS: PROTONIX IV 40 MG IV ×2 (07:53→21:20)
[2024-03-04] MEDS: NSS (PRESERVATIVE FREE) 10 ML IV ×2 (07:55→21:20)
[2024-03-04] MEDS: VISBIOME 2 CAP PO (07:55)
[2024-03-04 08:09] LABS: Hepatitis B Core Ab, Total Negative (Negative)
--- NOTE | 2024-03-04 08:34 | W.PN.HOSP.TC ---
Today's Communication/Plan
-
see bold
Assessment / Plan
Assessment / Plan
33yo M with no significant medical history except of drug abuse brought from [facility] (was incarcerated for 3 months) with persistent abd pain, bright red blood in stool, diarrhea, lack of appetite for 3 weeks. 1 unit PRBC
given on 02/26/24. Neg stool Cx so Id stopped Abx. Pending colonoscopy on 03/02/24. Hyponatremia improved on hydration
AP:
#Pancolitis (infectious vs inflammatory)
#Lower GIB with acute blood loss anemia with NORBERTO
TSH WNL, lipase not elevated
Appreciate ID input, monitor off antibiotic
Appreciate GI input, status post colonoscopy 03/02/24 showing ulcerated and congested mucosa of entire colon, consistent with ulcerative colitis, biopsied
Continue IV steroids, mesalamine, probiotics
Plan to start Remicaide once Quantiferon and PPD results back and if neg
Tolerating low residue diet
#Coag neg staph in one set of Bcx, r/o bacteremia
Repeated Bcx neg, suspect contamination. ID consult: confirmed that no need to treat
# Hypovolemic hyponatremia
Appreciate nephrology input, status post hypertonic saline
Hyponatremia improved on IV fluids
#Leukocytosis
#Thrombocytopenia
Most likely from IBD or 2/2 hemoconcentration
Follow CBC
#Subcentimeter R renal lesions
#Hx of nephrolithiasis
Too small to characterize
Advised close outpatient follow up
#Hypokalemia
2/2 diarrhea
Repleted and resolved
DVT prophylaxis�SCDs due to bloody diarrhea
Full code
Total time spent to see the patient on the floor, examine the patient, review data and lab results, discuss treatment plan with patient, nursing staff around 37 minutes.
Physical Exam
General: No acute distress
HEENT: Normocephalic, Atraumatic, EOMI, MMM
Respiratory: Clear to Auscultation bilaterally
Cardiac: Normal S1/S2, Regular Rate and Rhythm
GI: Soft, Nontender, Nondistended, Normal Bowel Sounds
Extremities: No Clubbing, Cyanosis, or Edema
Neuro: Nonfocal/Grossly Intact
Psych: Calm, Cooperative
Derm: No Visible lesions
Anticipated Discharge: 24 - 48 hours
Subjective/Interval History
-
Date of Service: March 04, 2024
Patient complains of continued bloody diarrhea, less blood than prior. No abdominal pain. No fever, no vomiting.
Objective Data
-
Labs:
Laboratory Results
03/04/24
06:12
WBC 8.2
Hgb 7.9 L
Hct 23.8 L
Plt Count 451 H
Sodium 133 L
Potassium 3.5
Chloride 101
Carbon Dioxide 29
BUN 3 L
Creatinine 0.6 L
Glucose 143 H
Calcium 7.4 L
Vital Signs:
Vital Signs
Temp Pulse Resp BP Pulse Ox
97.9 F 91 16 112/68 99
03/04/24 07:30 03/04/24 07:30 03/04/24 07:30 03/04/24 07:30 03/04/24 07:30
I&O
03/03/24 03/04/24 03/05/24
06:59 06:59 06:59
Intake Total 3290 / 3290 960 / 960
Output Total 1450 / 1450 650 / 650 500 / 500
Balance 1840 / 1840 -650 / -650 460 / 460
--- NOTE | 2024-03-04 09:53 | W.PN.GI.CBS2 ---
Today's Communication / Plan
-
continue steroids and mesalamine
will start Remicaide once Quantiferon and PPD results back and if neg
Assessment / Plan
-
Pt is a 33yo with hx substance abuse from [facility], renal calculus with onset of rectal bleeding for several weeks after tooth infection with abx/ NSAID use. On admission noted with anemia with iron deficiency with
thrombocytosis with elevated CRP, leukocytosis with bandemia/fever and electrolyte imbalance and cT concern for pancolitis. + wt loss 16 lbs since onset.
-rectal bleeding
-iron deficiency anemia
-ct concern for pancolitis
-leukocytosis/fever
-elevated CRP
-electrolyte imbalance
-hypoalbuminemia
-tooth infection with abx/NSAID use at onset of diarrhea
-wt loss
-dysphagia with regurgitation
-hx substance abuse with neg tox screen on admission
-hx renal stones/renal lesion on imaging
PLAN:
Status post colonoscopy yesterday and findings are consistent with severe ulcerative pancolitis
Started on Solu-Medrol 20 mg every 8 hours 03/02 and mesalamine 03/02
Given ongoing symptoms and severe colitis will start him on Remicade once the QuantiFERON gold is back if neg
will need to discuss with the long term physician to set up Remicade post DC
Hepatitis serologies neg except for positive hepatitis B surface antibody likely from vaccination
PPD administered 03/02 to be read 03/05, CXR normal
His fever finally resolved follow closely if he starts to spike again on steroids May need to consider antibiotics to prevent translocation although typically for UC no indication for antibiotics
He tested negative for HIV, hepatitis C and COVID.
Blood culture was positive for staph most likely contaminant repeat blood cultures are negative
Continue probiotics
Subjective
Subjective
Date of Service: March 04, 2024
He still has diarrhea with blood in the stool but decreasing in quantity. He finally remains afebrile and WBC count has normalized, denies abdominal pain, tolerating low residue diet
Objective
Data Reviewed
Laboratory Data:
Laboratory Results
03/04/24 06:12
03/04/24 06:12
Laboratory Results
PT 15.2 Sec (11.4-14.6) H 02/26/24 15:15
INR 1.20 02/26/24 15:15
Phosphorus 2.1 mg/dl (2.5-4.5) L 03/04/24 06:12
Magnesium 2.1 mg/dl (1.6-2.3) 03/04/24 06:12
Total Bilirubin 0.2 mg/dl (0.2-1.3) 03/03/24 04:34
AST 21 U/L (17-59) 03/03/24 04:34
ALT 24 U/L (0-50) 03/03/24 04:34
Alkaline Phosphatase 91 U/L (38-126) 03/03/24 04:34
Lipase 16 U/L (23-300) L 02/26/24 15:16
Vital Signs and I&O:
Vital Signs
Temp Pulse Resp BP Pulse Ox
97.9 F 91 16 112/68 99
03/04/24 07:30 03/04/24 07:30 03/04/24 07:30 03/04/24 07:30 03/04/24 07:30
I&O
03/03/24 03/04/24 03/05/24
06:59 06:59 06:59
Intake Total 3290 / 3290 960 / 960
Output Total 1450 / 1450 650 / 650 500 / 500
Balance 1840 / 1840 -650 / -650 460 / 460
Physical Exam
Physical Exam
Cardiology: Normal Sinus Rhythm
Pulmonary: Clear
GI: Soft, Non Distended, Non Tender and Normal Bowel Sounds
[2024-03-04 11:15] VITALS: BP 115/66
--- NOTE | 2024-03-04 14:02 | W.PN.UPDATE ---
Addendum entered and electronically signed by REYNALDO Mejia 03/04/24 15:10:
with low albumin will add ensure bid and add lovenox SQ with close watch as high risk for DVT with active IBD reviewed with Dr. Rogers and Dr. Jones.
Original Note:
Update Note
Progress Note Update
I spoke with Kenyatta MOREAU [phone] at [facility] to review for Remicade and update on pt status and need for infusion. She states it should be covered by [facility] but will check with med director for further infusion to be done at [facility]
vs at [place]. I will call back to confirm prior to infusion the [facility] can continue therapy. I also reviewed with pharmacy to availability. will add colorectal consult.
[2024-03-04 15:05] VITALS: BP 115/68
--- NOTE | 2024-03-04 16:01 | CON.CRS ---
Consultation
-
Date/Time Consultation Requested: 03/04/24 @ 14:22
Date/Time Consultation Performed: 03/04/24 @ 15:30
Requesting Provider: REYNALDO Ortega
Performing Provider: Trey Short MD
Reason for Consultation: Ulcerative colitis
Medical History
-
Chief Complaint: Abdominal pain/diarrhea
History of Present Illness:
33-year-old male who was brought to the ED on 02/26/2024 from the [facility] for the evaluation management of abdominal pain and diarrhea for the preceding 3 weeks. He states his symptoms occurred abruptly and he had abdominal
cramping associated with loose stools mixed with blood. He was having approximately 12 bowel movements a day. He had a loss of appetite but no nausea or vomiting. He was having intermittent fevers as high as 102.2 with intermittent tachycardia
that have resolved over the past 2 days. His initial white count was 15.8 and today is 8.2. His initial hemoglobin was 10.1 g/dL with a ferdinand of 7.8 on 02/26/2024. He received 1 unit of packed cells on 02/26/2024 and today his hemoglobin is 7.9 g/dL.
He has lost several pounds (16lbs over the past 2 months) and his albumin today is 1.1 g/dL. CT scan of the abdomen pelvis with intravenous contrast only was limited but there were findings suggesting diffuse thickening of the majority of the
colon including the rectum without evidence of obstruction, pneumatosis, or free air.
A colonoscopy on 03/02/2024 revealed severely congested, erythematous, granular ulcerated and vascular pattern decreased mucosa in the entire colon and rectum in a continuous distribution consistent with ulcerative colitis. The terminal ileum
appeared normal. Biopsies were consistent with moderate inflammation. Stool cultures and C. difficile were negative.
He was started on Solu-Medrol 20 mg every 8 hours and Apriso. Since noted medications he states he feels a bit better. He is tolerating a low residue diet.
There is no family history of IBD and he has not undergone any previous abdominal surgery.
Past Medical History
Past Medical History: Other (Nephrolithiasis; tooth infection with recent antibiotic use)
Past Surgical History: None
Social History
Tobacco: Former Smoker
Alcohol: None
Drug: Former User (Meth use prior to incarceration in November)
Family History
Family History: Reviewed & Not Pertinent
Allergies / Home Medications
Allergy/AdvReac Type Severity Reaction Status Date / Time
No Known Allergies Allergy Unverified 06/24/22 20:48
�Medication �Instructions �Recorded �Confirmed �Type
famotidine 20 mg tablet 20 mg PO DAILY Gastrointestinal 02/26/24 02/26/24 History
Issue
hydrocortisone 1 % topical cream 1 applic topical HS rectally 02/26/24 02/26/24 History
loperamide 2 mg capsule 2 mg PO BIDPRN PRN diarrhea 02/26/24 02/26/24 History
wheat dextrin 1 gram chewable 1 tab PO BID Gastrointestinal Issue 02/26/24 02/26/24 History
tablet (Benefiber Sugar Free
(dextrin))
Review of Systems
-
History Source: Patient
All other systems: Negative unless noted
A 10 point review of systems was completed, and was negative except as per HPI.
Physical Exam
Vital Signs
Temp 98.4 F 03/04/24 15:05
Pulse 89 03/04/24 15:05
Resp Rate 18 03/04/24 15:05
Blood pressure 115/68 03/04/24 15:05
SaO2 98 03/04/24 15:05
Body Mass Index (BMI) 24.1
Lab Results / Allergies
03/04/24 06:12
03/04/24 06:12
WBC 8.2 10^3/uL (4.8-10.8) 03/04/24 06:12
Hgb 7.9 g/dL (13.0-18.0) L 08/14/24 06:12
Hct 23.8 % (39.0-52.0) L 03/04/24 06:12
Plt Count 451 10^3/uL (130-400) H 03/04/24 06:12
Allergy/AdvReac Type Severity Reaction Status Date / Time
No Known Allergies Allergy Unverified 06/24/22 20:48
Physical Exam
General: Well Developed, Well Nourished and No Apparent Distress
HEENT: Anicteric
GI: Soft, Non Tender and Non Distended
Musculoskeletal: No Edema
Skin: Warm and Dry
Neuro: Awake and Alert
Data Reviewed
-
CT Scan: Image Personally Visualized and interpreted, Report Reviewed by me and Discussed with Patient
Labs: Labs Reviewed by me and Discussed with Patient
Assessment / Plan
-
Pancolitis consistent with ulcerative colitis.
I reviewed the treatment options including continued medical management versus surgery, i.e. a subtotal colectomy with temporary ileostomy followed by a completion proctectomy with either a permanent ileostomy or ileal pouch. At the present time I
do not feel surgery is indicated. I explained that if his condition does not improve significantly within 7 to 10 days, or if his condition worsens, surgery will be advised. Risks of surgery include, but are not limited to, bleeding, infection,
adhesions, hernias, injury other structures, stoma complications, DVT, cardiopulmonary complications, positioning injuries, persistent bleeding from the rectal stump, and the risks of anesthesia. He states he clearly feels better since starting the
steroids and the plan is to continue the steroids and mesalamine. In terms of nutrition, he is eating and I have added protein supplements. Will follow.
[2024-03-04] MEDS: LOVENOX 40 MG SC (17:07)
[2024-03-04 19:00] VITALS: BP 123/65
[2024-03-04] MEDS: FLUSH (NSS) 2 FLUSH IV (21:20)
[2024-03-04 23:03] VITALS: BP 112/62
[2024-03-05] MEDS: SOLU-MEDROL PF 20 MG IV ×4 (00:18→23:35)
[2024-03-05] MEDS: FLUSH (NSS) 2 FLUSH IV ×2 (00:19→23:36)
[2024-03-05] MEDS: TYLENOL 650 MG PO ×2 (00:26→23:44)
[2024-03-05 03:26] VITALS: BP 128/68
[2024-03-05 06:18] LABS: Hematocrit 22.4 % (39.0-52.0); Hemoglobin 7.4 g/dL (13.0-18.0); Mean Corpuscular Hgb 27.9 pg (27.0-31.0); Mean Corpuscular Volume 84.5 fL (80.0-94.0); Mean Platelet Volume 8.1 fL (7.4-10.4); Platelet Count 447 10^3/uL (130-400); Red Blood Cell Count 2.65 10^6/uL (4.70-6.10); Red Cell Dist. Width 14.5 % (11.5-14.5); White Blood Cell Count 6.6 10^3/uL (4.8-10.8)
[2024-03-05 06:47] LABS: Blood Urea Nitrogen 5 mg/dl (9-20); Calcium 7.5 mg/dl (8.4-10.2); Carbon Dioxide 30 mmol/L (22-30); Chloride 101 mmol/L (98-107); Estimated Creatinine Clearance > 125 ml/min; Glucose 128 mg/dl (70-99); Potassium 3.2 mmol/L (3.5-5.1); Sodium 134 mmol/L (135-145); eGFR > 60.00
[2024-03-05 07:30] VITALS: BP 121/67
[2024-03-05 07:39] LABS: Quantiferon Mitogen minus NIL 1.82 IU/mL; Quantiferon NIL 0.06 IU/mL; Quantiferon TB Gold Plus Negative (Negative)
--- NOTE | 2024-03-05 08:48 | W.PN.HOSP.TC ---
Today's Communication/Plan
-
see bold
Assessment / Plan
Assessment / Plan
33yo M with no significant medical history except of drug abuse [facility] for [facility]) with persistent abd pain, bright red blood in stool, diarrhea, lack of appetite for 3 weeks. 1 unit PRBC
given on 02/26/24. Neg stool Cx so Id stopped Abx. Pending colonoscopy on 03/02/24. Hyponatremia improved on hydration
AP:
#Pancolitis (infectious vs inflammatory)
#Lower GIB
TSH WNL, lipase not elevated
Appreciate ID input, monitor off antibiotic
Appreciate GI input, status post colonoscopy 03/02/24 showing ulcerated and congested mucosa of entire colon, consistent with ulcerative colitis, biopsied
Continue IV steroids, mesalamine, probiotics
Plan to start Remicaide once Quantiferon and PPD results back and if neg
Tolerating low residue diet
#Acute blood loss anemia with NORBERTO
Status post 1 unit of packed red blood cells 02/25
Hemoglobin 7.4, continue to trend
Possibly will need transfusion tomorrow if hemoglobin continues to trend down
#Coag neg staph in one set of Bcx, r/o bacteremia
Repeated Bcx neg, suspect contamination. ID consult: confirmed that no need to treat
# Hypovolemic hyponatremia
Appreciate nephrology input, status post hypertonic saline
Hyponatremia improved on IV fluids
#Leukocytosis
#Thrombocytopenia
Most likely from IBD or 2/2 hemoconcentration
Follow CBC
#Subcentimeter R renal lesions
#Hx of nephrolithiasis
Too small to characterize
Advised close outpatient follow up
#Hypokalemia
2/2 diarrhea
Repleted and resolved
DVT prophylaxis�SQ lovenox as per GI
Full code
Total time spent to see the patient on the floor, examine the patient, review data and lab results, discuss treatment plan with patient, nursing staff around 36 minutes.
Physical Exam
General: No acute distress
HEENT: Normocephalic, Atraumatic, EOMI, MMM
Respiratory: Clear to Auscultation bilaterally
Cardiac: Normal S1/S2, Regular Rate and Rhythm
GI: Soft, Nontender, Nondistended, Normal Bowel Sounds
Extremities: No Clubbing, Cyanosis, or Edema
Neuro: Nonfocal/Grossly Intact
Psych: Calm, Cooperative
Derm: No Visible lesions
Anticipated Discharge: 24 - 48 hours
Subjective/Interval History
-
Date of Service: March 04, 2024
Continues to have bloody diarrhea. No abdominal pain, no nausea, no vomiting. No fever.
Objective Data
-
Labs:
Laboratory Results
03/04/24
06:12
WBC 8.2
Hgb 7.9 L
Hct 23.8 L
Plt Count 451 H
Sodium 133 L
Potassium 3.5
Chloride 101
Carbon Dioxide 29
BUN 3 L
Creatinine 0.6 L
Glucose 143 H
Calcium 7.4 L
Vital Signs:
Vital Signs
Temp Pulse Resp BP Pulse Ox
98.1 F 102 16 115/66 97
03/04/24 11:15 03/04/24 11:15 03/04/24 11:15 03/04/24 11:15 03/04/24 11:15
I&O
03/03/24 03/04/24 03/05/24
06:59 06:59 06:59
Intake Total 3290 / 3290 960 / 960
Output Total 1450 / 1450 650 / 650 500 / 500
Balance 1840 / 1840 -650 / -650 460 / 460
[2024-03-05] MEDS: PENTASA 1000 MG PO ×4 (09:39→22:55)
[2024-03-05] MEDS: VISBIOME 2 CAP PO (09:39)
[2024-03-05] MEDS: KCL 40 MEQ PO ×2 (09:40→15:15)
[2024-03-05] MEDS: PROTONIX IV IV (09:58)
[2024-03-05] MEDS: NSS (PRESERVATIVE FREE) IV (09:58)
[2024-03-05] MEDS: CHECK PPD SITE 1 CHECK INTRADERMA (10:13)
--- NOTE | 2024-03-05 10:25 | W.PN.GI.CBS2 ---
Addendum entered and electronically signed by Erica Jones MD 03/05/24 15:23:
I saw and examined the patient.
The PRETZ[employer] TWISTER's note was reviewed and I agree with the note.
Comment: Symptoms are slowly improving on steroids but given severe ulcerative pancolitis will need inpatient Remicade and waiting for approval from his alf since he needs to continue it moving forward after the induction doses of 0,2, 6 weeks
every 8 weeks of Remicade 10 mg/kg given the severity of disease and severe hypoalbuminemia and elevated fecal calprotectin of greater than 3000 would start with higher dose. Continue diet as tolerated with protein supplements hold on TPN for now
consider PPN. He also has been seen by Dr. Short. May need transfusion if hemoglobin drops less than 7 still having bloody diarrhea but less frequent and slightly more formed on steroids. added probiotics also
Original Note:
Today's Communication / Plan
-
:
concern for severe Ulcerative sutton colitis with continued bleeding
pt does report some improvement stool frequency
still some drop in hbg to 7.4 today, s/p IV iron
remains on IV Solumedrol day #4, mesalamine and probiotics
considering inpatient Remicade infusion due to severe disease
I discussed Remicade with patient he is willing to start. Reviewed side effects including infection, cancer etc -- up to date info given to patient and reviewed need for life long treatment
PPD placed in Negative today right arm per my reading, TB quat gold also neg, hep panvel neg with hep B immunity, HIV neg
I reviewed with Britt with [facility] at [facility]f [phone] and fax [phone] --she can work on approval when she gets clinical data but should be approved
I reviewed with GI office - Steph to figure out billing, infusion location etc -- she will let me known when ok to start infusion
cont diet with supplement
continue Lovenox as very high risk for DVT
fever remains improved
s/p colorectal consult
will need GI follow up after discharge
replete K per hospitalist
Assessment / Plan
-
Pt is a 33yo with hx substance abuse from [facility], renal calculus with onset of rectal bleeding for several weeks after tooth infection with abx/ NSAID use. On admission noted with anemia with iron deficiency with
thrombocytosis with elevated CRP, leukocytosis with bandemia/fever and electrolyte imbalance and cT concern for pancolitis. + wt loss 16 lbs since onset.
-severe Ulcerative colitis with continued rectal bleeding and marked elevated fecal gemma
-anemia with iron deficiency
-ct concern for pancolitis
-leukocytosis/fever- improving
-hypokalemia
-elevated CRP
-electrolyte imbalance on admission
-hypoalbuminemia
-tooth infection with abx/NSAID use at onset of diarrhea
-wt loss
-dysphagia with regurgitation
-hx substance abuse with neg tox screen on admission
-hx renal stones/renal lesion on imaging
PLAN:
concern for severe Ulcerative sutton colitis with continued bleeding
pt does report some improvement stool frequency
still some drop in hbg to 7.4 today, s/p IV iron
remains on IV Solumedrol day #4, mesalamine and probiotics
considering inpatient Remicade infusion due to severe disease
I discussed Remicade with patient he is willing to start. Reviewed side effects including infection, cancer etc -- up to date info given to patient and reviewed need for life long treatment
PPD placed in Negative today right arm per my reading, TB quat gold also neg, hep panvel neg with hep B immunity, HIV neg
I reviewed with Britt with [facility] at [facility]f [phone] and fax [phone] --she can work on approval when she gets clinical data but should be approved
I reviewed with GI office - Ste[facility] to figure out billing, infusion location etc -- she will let me known when ok to start infusion
cont diet with supplement
continue Lovenox as very high risk for DVT
fever remains improved
s/p colorectal consult
will need GI follow up after discharge
replete K per hospitalist
Subjective
Subjective
Date of Service: March 05, 2024
03/04 blood stools, low residue diet with supplement BID
Objective
Data Reviewed
Laboratory Data:
Laboratory Results
03/05/24 05:46
03/05/24 05:46
Laboratory Results
PT 15.2 Sec (11.4-14.6) H 02/26/24 15:15
INR 1.20 02/26/24 15:15
Phosphorus 2.1 mg/dl (2.5-4.5) L 03/04/24 06:12
Magnesium 2.1 mg/dl (1.6-2.3) 03/04/24 06:12
Total Bilirubin 0.2 mg/dl (0.2-1.3) 03/03/24 04:34
AST 21 U/L (17-59) 03/03/24 04:34
ALT 24 U/L (0-50) 03/03/24 04:34
Alkaline Phosphatase 91 U/L (38-126) 03/03/24 04:34
Lipase 16 U/L (23-300) L 02/26/24 15:16
Vital Signs and I&O:
Vital Signs
Temp Pulse Resp BP Pulse Ox
97.7 F 92 16 121/67 98
03/05/24 07:30 03/05/24 07:30 03/05/24 07:30 03/05/24 07:30 03/05/24 07:30
I&O
03/04/24 03/05/24 03/06/24
06:59 06:59 06:59
Intake Total 2160 / 2160 480 / 480
Output Total 650 / 650 2175 / 2175 800 / 800
Balance -650 / -650 -15 / -15 -320 / -320
Physical Exam
Physical Exam
HEENT: Anicteric and Moist mucous membranes
Cardiology: Normal Sinus Rhythm
Pulmonary: Clear
GI: Soft, Non Distended and Tender (minimal )
Extremities: No Edema
Neuro: Non Focal
--- NOTE | 2024-03-05 11:01 | W.PN.CRS1 ---
Today's Communication / Plan
-
No surgery indicated at this time
Will have stoma RN torie in case surgery is indicated in the future or if patient condition worsens
Mesalamine and steroids per GI
Assessment/Plan
-
Pancolitis consistent with ulcerative colitis
-Continue steroids and mesalamine per GI
-Continue to monitor hemoglobin
-No surgery indicated at this time but if his condition does not improve in the next few days or he worsens, surgery is advised
-Wound RN to stoma torie
-Continue diet with protein supplements
Subjective Data
Subjective Data
Date of Service: March 05, 2024
Patient states he had bloody stools about 3 times overnight. His cramping has improved. He does not feel any pain. He has tolerated diet.
Objective Data
-
Vital Signs
Temp Pulse Resp BP Pulse Ox
97.7 F 92 16 121/67 98
03/05/24 07:30 03/05/24 07:30 03/05/24 07:30 03/05/24 07:30 03/05/24 07:30
Intake & Output
03/04/24 03/05/24 03/06/24
06:59 06:59 06:59
Intake Total 2160 / 2160 480 / 480
Output Total 650 / 650 2175 / 2175 800 / 800
Balance -650 / -650 -15 / -15 -320 / -320
Intake:
Oral fluids 2160 / 2160 480 / 480
Output:
Urine, Voided 650 / 650 2175 / 2175 800 / 800
Other:
Number of unmeasured liquid
stools
Rectum 3 3
Lab Results
03/05/24 05:46
03/05/24 05:46
Physical Exam
-
General: No Acute Distress and AOx3
Abdomen: Soft, Non Distended and Non Tender
Skin: Warm and Dry
[2024-03-05] MEDS: PROTONIX 40 MG PO (11:33)
[2024-03-05 12:00] VITALS: BP 132/72
--- NOTE | 2024-03-05 12:22 | WOUNDNOTE ---
[facility] RN NOTE: Patient visited for ostomy siting for possible surgery. Patient asked appropriate questions and said he could tolerate laying and sitting positions. Abdomen distended. Patient aware that if he needs surgery the surgeon will make final
determination of ostomy placement. The rectus abdominal muscle was located and care was taken to avoid creases and folds.Patient was assessed in laying and sitting position. Patient was marked x4 quadrants. RN given update. Will follow as needed.
--- NOTE | 2024-03-05 15:11 | CM ---
Case management following for discharge planning
Chart reviewed
Patient from [facility] - Hx substance abuse with lower GI bleed, pancolitis. Receiving IV Solumedrol, IVF. Diet advanced to low residue.
Plan return to [facility] when medically ready
[facility] Nurse [phone] (If the [phone] is not working call Britt at [phone])
fax [phone]
[2024-03-05] MEDS: NEUTRA-PHOS POWDER PACKET 250 MG PO ×3 (15:20→22:56)
[2024-03-05 15:30] VITALS: BP 128/75
[2024-03-05] MEDS: LOVENOX 40 MG SC (17:14)
[2024-03-05 19:45] VITALS: BP 124/71
[2024-03-05 23:30] VITALS: BP 119/69
[2024-03-06] VITALS (12 sets, daily range): BP systolic 107–122; BP diastolic 59–72
[2024-03-06 06:40] LABS: Hematocrit 24.6 % (39.0-52.0); Hemoglobin 7.9 g/dL (13.0-18.0); Mean Corp Hgb Conc. 32.1 g/dL (33.0-37.0); Mean Corpuscular Hgb 27.8 pg (27.0-31.0); Mean Corpuscular Volume 86.6 fL (80.0-94.0); Platelet Count 446 10^3/uL (130-400); Red Blood Cell Count 2.84 10^6/uL (4.70-6.10); Red Cell Dist. Width 14.9 % (11.5-14.5); White Blood Cell Count 7.8 10^3/uL (4.8-10.8)
[2024-03-06 06:58] LABS: Blood Urea Nitrogen 8 mg/dl (9-20); Calcium 7.5 mg/dl (8.4-10.2); Carbon Dioxide 33 mmol/L (22-30); Chloride 99 mmol/L (98-107); Estimated Creatinine Clearance > 125 ml/min; Glucose 135 mg/dl (70-99); Magnesium 2.1 mg/dl (1.6-2.3); Phosphorus 2.3 mg/dl (2.5-4.5); Potassium 4.1 mmol/L (3.5-5.1); Sodium 134 mmol/L (135-145); eGFR > 60.00
--- NOTE | 2024-03-06 08:49 | W.PN.HOSP.TC ---
Today's Communication/Plan
-
see bold
Assessment / Plan
Assessment / Plan
33yo M with no significant medical history except of drug abuse brought from [facility] (was incarcerated for 3 months) with persistent abd pain, bright red blood in stool, diarrhea, lack of appetite for 3 weeks. 1 unit PRBC
given on 02/26/24. Neg stool Cx so Id stopped Abx. Pending colonoscopy on 03/02/24. Hyponatremia improved on hydration
AP:
#Pancolitis (infectious vs inflammatory)
#Lower GIB
TSH WNL, lipase not elevated
Appreciate ID input, monitor off antibiotic
Appreciate GI input, status post colonoscopy 03/02/24 showing ulcerated and congested mucosa of entire colon, consistent with ulcerative colitis, biopsied
Continue IV steroids, mesalamine, probiotics
Plan to start Remicaide once Quantiferon and PPD results back and if neg
Tolerating low residue diet
#Acute blood loss anemia with NORBERTO
Status post 1 unit of packed red blood cells 02/25
Hemoglobin 7.9, continue to trend
#Hypokalemia
Repleted and resolved
#Hypophosphatemia
Replete
#Coag neg staph in one set of Bcx, r/o bacteremia
Repeated Bcx neg, suspect contamination. ID consult: confirmed that no need to treat
# Hypovolemic hyponatremia
Appreciate nephrology input, status post hypertonic saline
Hyponatremia improved on IV fluids
#Leukocytosis
#Thrombocytopenia
Most likely from IBD or 2/2 hemoconcentration
Follow CBC
#Subcentimeter R renal lesions
#Hx of nephrolithiasis
Too small to characterize
Advised close outpatient follow up
#Hypokalemia
2/2 diarrhea
Repleted and resolved
DVT prophylaxis�SQ lovenox as per GI
Full code
Total time spent to see the patient on the floor, examine the patient, review data and lab results, discuss treatment plan with patient, nursing staff around 35 minutes.
Physical Exam
General: No acute distress
HEENT: Normocephalic, Atraumatic, EOMI, MMM
Respiratory: Clear to Auscultation bilaterally
Cardiac: Normal S1/S2, Regular Rate and Rhythm
GI: Soft, Nontender, Nondistended, Normal Bowel Sounds
Extremities: No Clubbing, Cyanosis, or Edema
Neuro: Nonfocal/Grossly Intact
Psych: Calm, Cooperative
Derm: No Visible lesions
Anticipated Discharge: 24 - 48 hours
Subjective/Interval History
-
Date of Service: March 05, 2024
Patient reports improvement in his bloody diarrhea. No nausea, no vomiting. He is tolerating his diet. No fever.
Objective Data
-
Labs:
Laboratory Results
03/05/24
05:46
WBC 6.6
Hgb 7.4 L
Hct 22.4 L
Plt Count 447 H
Sodium 134 L
Potassium 3.2 L
Chloride 101
Carbon Dioxide 30
BUN 5 L
Creatinine 0.7
Glucose 128 H
Calcium 7.5 L
Vital Signs:
Vital Signs
Temp Pulse Resp BP Pulse Ox
98.3 F 105 16 132/72 96
03/05/24 12:00 03/05/24 12:00 03/05/24 12:00 03/05/24 12:00 03/05/24 12:00
I&O
03/04/24 03/05/24 03/06/24
06:59 06:59 06:59
Intake Total 2160 / 2160 480 / 480
Output Total 650 / 650 2175 / 2175 800 / 800
Balance -650 / -650 -15 / -15 -320 / -320
[2024-03-06] MEDS: PENTASA 1000 MG PO ×4 (09:42→21:00)
[2024-03-06] MEDS: NEUTRA-PHOS POWDER PACKET 250 MG PO ×4 (09:43→21:00)
[2024-03-06] MEDS: PROTONIX 40 MG PO (09:43)
[2024-03-06] MEDS: VISBIOME 2 CAP PO (09:43)
[2024-03-06] MEDS: SOLU-MEDROL PF 20 MG IV ×2 (09:48→16:58)
--- NOTE | 2024-03-06 13:13 | W.PN.GI.CBS2 ---
Addendum entered and electronically signed by REYNALDO Boles 03/06/24 15:22:
I spoke to [facility] as we are awaiting to make sure that they have outpatient Remicade infusion arrangements made for him 2 weeks from 1st dose. Our office has made multiple attempts over the past couple days without any
response. I did speak to Libra (Nursing Web Development Consultant) today. Britt, who handles the infusions is not there today. They will try to reach her to see if they have more information. They do not perform infusions in the facility and send out. She is
unsure where. Will await arrangements prior to first infusion as this has to be arranged.
Addendum entered and electronically signed by Gladys Hernandez MD 03/06/24 13:21:
Hb stable
Original Note:
Today's Communication / Plan
-
Lactose-free low-fat diet
Continue IV steroid
Awaiting Remicade approval
Trend CRP
Assessment / Plan
-
Pt is a 33yo with hx substance abuse from [facility], renal calculus with onset of rectal bleeding for several weeks after tooth infection with abx/ NSAID use. On admission noted with anemia with iron deficiency with
thrombocytosis with elevated CRP, leukocytosis with bandemia/fever and electrolyte imbalance and cT concern for pancolitis. + wt loss 16 lbs since onset.
-severe Ulcerative colitis with continued rectal bleeding and marked elevated fecal gemma
-anemia with iron deficiency
-ct concern for pancolitis
-leukocytosis/fever- improving
-hypokalemia
-elevated CRP
-electrolyte imbalance on admission
-hypoalbuminemia
-tooth infection with abx/NSAID use at onset of diarrhea
-wt loss
-dysphagia with regurgitation
-hx substance abuse with neg tox screen on admission
-hx renal stones/renal lesion on imaging
PLAN:
Lactose-free low-fat diet advised
remains on IV Solumedrol day # 5. Clinical improvement with less frequent bowel movements. CRP trending down
considering inpatient Remicade infusion 10 mg/ kg - given the severity of disease and severe hypoalbuminemia and elevated fecal calprotectin > 3000 .
discussed Remicade by GI team with patient and he is willing to start. Reviewed side effects including infection, cancer etc -- up to date info given to patient and reviewed need for life long treatment
PPD placed in Negative today right arm per my reading, TB quat gold also neg, hep panvel neg with hep B immunity, HIV neg
I reviewed with Britt with [facility] [phone] and fax [phone] --she can work on approval when she gets clinical data but should be approved
reviewed with GI office - Steph to figure out billing, infusion location etc -- she will let me known once approved then ok to start infusion
cont diet with supplement
continue Lovenox as very high risk for DVT
Colorectal surgery following
Total Time Spent with Patient (in minutes): 35
Subjective
Subjective
Date of Service: March 06, 2024
Feeling better. Stool with some consistency but contains blood/mucus. Frequency improved significantly. Denies any abdominal pain. Tolerating diet
Objective
Data Reviewed
Laboratory Data:
Laboratory Results
03/06/24 06:13
03/06/24 06:13
Laboratory Results
PT 15.2 Sec (11.4-14.6) H 02/26/24 15:15
INR 1.20 02/26/24 15:15
Phosphorus 2.3 mg/dl (2.5-4.5) L 03/06/24 06:13
Magnesium 2.1 mg/dl (1.6-2.3) 03/06/24 06:13
Total Bilirubin 0.2 mg/dl (0.2-1.3) 03/03/24 04:34
AST 21 U/L (17-59) 03/03/24 04:34
ALT 24 U/L (0-50) 03/03/24 04:34
Alkaline Phosphatase 91 U/L (38-126) 03/03/24 04:34
Lipase 16 U/L (23-300) L 02/26/24 15:16
Vital Signs and I&O:
Vital Signs
Temp Pulse Resp BP Pulse Ox
97.9 F 92 16 115/70 97
03/06/24 07:40 03/06/24 07:40 03/06/24 07:40 03/06/24 07:40 03/06/24 07:40
I&O
03/05/24 03/06/24 03/07/24
06:59 06:59 06:59
Intake Total 2160 / 2160 2960 / 2960
Output Total 2175 / 2175 2690 / 2690
Balance -15 / -15 270 / 270
Physical Exam
Physical Exam
GI: Non Distended and Non Tender
--- NOTE | 2024-03-06 15:03 | CM ---
manager ct following for discharge planning
Chart reviewed
IV steroids
GI and colorectal following
Plan return to [facility] when medically ready
[facility] Nurse [phone] (If the [phone] # is not working call Britt at [phone])
fax [phone]
--- NOTE | 2024-03-06 15:59 | W.PN.UPDATE ---
Update Note
Progress Note Update
We got the confirmation from Becky Tabares (Nursing Pitch Filler) at [facility] [phone] that they will be able to continue Remicade infusion for the patient going forward including week 2. We will proceed with first dose
of Remicade today 10 mg/kg IV.
[2024-03-06] MEDS: PEPCID 20 MG PO (16:53)
[2024-03-06] MEDS: TYLENOL 650 MG PO (16:55)
[2024-03-06] MEDS: BENADRYL 50 MG PO (16:55)
[2024-03-06] MEDS: REMICADE 220 MG IV (17:30)
--- NOTE | 2024-03-06 17:41 | PTCARENOTE ---
This RN initiated Remicade infusion per protocol, VSS, close observation maintained, review w/ patient of signs and symptoms to report. Premeds received 30 minutes prior.
[2024-03-06] MEDS: LOVENOX 40 MG SC (17:44)
--- NOTE | 2024-03-06 19:27 | PTCARENOTE ---
Remicade infusion complete. VSS. No adverse reactions observed.
[2024-03-06] MEDS: DESENEX/MITRAZOL/ZEASORB 1 APPLIC TOPICAL (21:02)
[2024-03-07] VITALS (7 sets, daily range): BP systolic 107–121; BP diastolic 59–75
[2024-03-07] MEDS: SOLU-MEDROL PF 20 MG IV ×3 (00:30→17:16)
--- NOTE | 2024-03-07 07:31 | W.PN.HOSP.TC ---
Today's Communication/Plan
-
see bold
Assessment / Plan
Assessment / Plan
33yo M with no significant medical history except of drug abuse brought from [facility] (was incarcerated for 3 months) with persistent abd pain, bright red blood in stool, diarrhea, lack of appetite for 3 weeks. 1 unit PRBC
given on 02/26/24. Neg stool Cx so Id stopped Abx. Pending colonoscopy on 03/02/24. Hyponatremia improved on hydration
AP:
#Pancolitis (infectious vs inflammatory)
#Lower GIB
TSH WNL, lipase not elevated
Appreciate ID input, monitor off antibiotic
Appreciate GI input, status post colonoscopy 03/02/24 showing ulcerated and congested mucosa of entire colon, consistent with ulcerative colitis, biopsied
Continue IV steroids D6, mesalamine, probiotics
Received first dose of Remicade 03/06
Patient needs to be maintained on Remicade infusion in 2, 6 weeks following discharge
Tolerating low residue diet
Colorectal surgery following
#Acute blood loss anemia with NORBERTO
Status post 1 unit of packed red blood cells 02/25
Hemoglobin 7.9, continue to trend
#Hypokalemia
Repleted and resolved
#Hypophosphatemia
Replete
#Coag neg staph in one set of Bcx, r/o bacteremia
Repeated Bcx neg, suspect contamination. ID consult: confirmed that no need to treat
# Hypovolemic hyponatremia
Appreciate nephrology input, status post hypertonic saline
Hyponatremia improved on IV fluids
#Leukocytosis
#Thrombocytopenia
Most likely from IBD or 2/2 hemoconcentration
Follow CBC
#Subcentimeter R renal lesions
#Hx of nephrolithiasis
Too small to characterize
Advised close outpatient follow up
#Hypokalemia
2/2 diarrhea
Repleted and resolved
DVT prophylaxis�SQ lovenox as per GI
Full code
Total time spent to see the patient on the floor, examine the patient, review data and lab results, discuss treatment plan with patient, nursing staff around 37 minutes.
Physical Exam
General: No acute distress
HEENT: Normocephalic, Atraumatic, EOMI, MMM
Respiratory: Clear to Auscultation bilaterally
Cardiac: Normal S1/S2, Regular Rate and Rhythm
GI: Soft, Nontender, Nondistended, Normal Bowel Sounds
Extremities: No Clubbing, Cyanosis, or Edema
Neuro: Nonfocal/Grossly Intact
Psych: Calm, Cooperative
Derm: No Visible lesions
Anticipated Discharge: 24 - 48 hours
Subjective/Interval History
-
Date of Service: March 07, 2024
Patient reports having continuous diarrhea, blood improved. No fever, no vomiting.
Objective Data
-
Labs:
Laboratory Results
03/07/24
07:03
WBC Pending
Hgb Pending
Hct Pending
Plt Count Pending
Vital Signs:
Vital Signs
Temp Pulse Resp BP Pulse Ox
98.5 F 90 18 114/64 96
03/07/24 03:00 03/07/24 03:00 03/07/24 03:00 03/07/24 03:00 03/07/24 03:00
I&O
03/06/24 03/07/24 03/08/24
06:59 06:59 06:59
Intake Total 2960 / 2960 1780 / 1780
Output Total 2690 / 2690 950 / 950
Balance 270 / 270 830 / 830
[2024-03-07 07:48] LABS: % Basophils 0.4 % (0-2); % Eosinophils 0.4 % (0-6); % Immature Granulocytes 1.3 % (0-0.5); % Lymphocytes 13.7 % (20.5-51.1); % Monocytes 7.2 % (1.7-9.3); Absolute Immature Granulocytes 0.1 10^3/uL (0-0.05); Absolute Monocytes 0.5 10^3/uL (0.1-0.6); Absolute Neutrophils 5.8 10^3/uL (1.4-6.5); Hematocrit 23.6 % (39.0-52.0); Hemoglobin 7.9 g/dL (13.0-18.0); Mean Corp Hgb Conc. 33.5 g/dL (33.0-37.0); Mean Corpuscular Hgb 28.3 pg (27.0-31.0); Mean Corpuscular Volume 84.6 fL (80.0-94.0); Nucleated Red Blood Cells % 0 % (-); Platelet Count 229 10^3/uL (130-400); Red Blood Cell Count 2.79 10^6/uL (4.70-6.10); Red Cell Dist. Width 15.2 % (11.5-14.5); White Blood Cell Count 7.5 10^3/uL (4.8-10.8)
[2024-03-07 08:04] LABS: Anisocytosis 2+; Band Neutrophils 9 % (0-3); Lymphocytes 15 % (20-51); Monocytes 5 % (2-9); Normal RBC Morphology No; Platelets Checked Yes; Segmented Neutrophils 71 % (42-75)
[2024-03-07 08:05] LABS: Basophilic Stippling Slight; Hypochromasia 3+; Poikilocytosis 1+; Polychromasia Slight; Smudge Cells Moderate; Target Cells Slight; Total Cells Counted 100
[2024-03-07 08:41] LABS: Phosphorus 3.7 mg/dl (2.5-4.5)
[2024-03-07] MEDS: PENTASA 1000 MG PO ×4 (09:41→21:40)
[2024-03-07] MEDS: VISBIOME 2 CAP PO (09:41)
[2024-03-07] MEDS: PROTONIX 40 MG PO (09:41)
[2024-03-07] MEDS: NEUTRA-PHOS POWDER PACKET 250 MG PO ×2 (09:42→12:35)
[2024-03-07] MEDS: DESENEX/MITRAZOL/ZEASORB 1 APPLIC TOPICAL ×2 (09:49→21:45)
[2024-03-07 09:57] LABS: ALT (SGPT) 102 U/L (0-50); AST (SGOT) 52 U/L (17-59); Albumin 2.1 g/dl (3.5-5.0); Alkaline Phosphatase 136 U/L (38-126); Direct Bilirubin 0.3 mg/dl (0.0-0.4); Total Bilirubin 0.3 mg/dl (0.2-1.3); Total Protein 4.8 g/dl (6.3-8.2)
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
--- NOTE | 2024-03-07 14:28 | PTCARENOTE ---
PT called me into the room. He drank his samina ensure and ate his lunch and had an episode of urgent incontent bowel movement that was bloody. I changed him and we agreed that after he eats his dinner we will go immediatly into the bathroom to
ensure he makes it. Also the ensure had milk in it and it was changed to ensure clear to limit lactose intake.
[2024-03-07] MEDS: LOVENOX 40 MG SC (17:16)
[2024-03-07] MEDS: TYLENOL 650 MG PO ×2 (17:18→21:42)
[2024-03-08] MEDS: SOLU-MEDROL PF 20 MG IV ×4 (00:12→23:11)
[2024-03-08] MEDS: FLUSH (NSS) 2 FLUSH IV (00:13)
[2024-03-08 03:00] VITALS: BP 112/68
[2024-03-08 07:45] VITALS: BP 121/72
[2024-03-08 07:53] LABS: Hematocrit 22.5 % (39.0-52.0); Hemoglobin 7.3 g/dL (13.0-18.0); Mean Corp Hgb Conc. 32.4 g/dL (33.0-37.0); Mean Corpuscular Volume 86.2 fL (80.0-94.0); Mean Platelet Volume 8.2 fL (7.4-10.4); Platelet Count 462 10^3/uL (130-400); Red Blood Cell Count 2.61 10^6/uL (4.70-6.10); Red Cell Dist. Width 15.5 % (11.5-14.5); White Blood Cell Count 6.9 10^3/uL (4.8-10.8)
--- NOTE | 2024-03-08 08:21 | W.PN.HOSP.TC ---
Today's Communication/Plan
-
see bold
Assessment / Plan
Assessment / Plan
33yo M with no significant medical history except of drug abuse brought from [facility] (was incarcerated for 3 months) with persistent abd pain, bright red blood in stool, diarrhea, lack of appetite for 3 weeks. 1 unit PRBC
given on 02/26/24. Neg stool Cx so Id stopped Abx. Pending colonoscopy on 03/02/24. Hyponatremia improved on hydration
AP:
#Pancolitis (infectious vs inflammatory)
#Lower GIB
TSH WNL, lipase not elevated
Appreciate ID input, monitor off antibiotic
Appreciate GI input, status post colonoscopy 03/02/24 showing ulcerated and congested mucosa of entire colon, consistent with ulcerative colitis, biopsied
Continue IV steroids D7, mesalamine, probiotics
Received first dose of Remicade 03/06
Patient needs to be maintained on Remicade infusion in 2, 6 weeks following discharge
Tolerating low residue diet
Colorectal surgery following
#Acute blood loss anemia with NORBERTO
Status post 1 unit of packed red blood cells 02/25
Hemoglobin 7.3, continue to trend, transfuse for hemoglobin less than 7.0
#Hypokalemia
Repleted and resolved
#Hypophosphatemia
Repleted and resolved
#Coag neg staph in one set of Bcx, r/o bacteremia
Repeated Bcx neg, suspect contamination. ID consult: confirmed that no need to treat
# Hypovolemic hyponatremia
Appreciate nephrology input, status post hypertonic saline
Hyponatremia improved s/p IV fluids
#Leukocytosis
#Thrombocytopenia
Most likely from IBD or 2/2 hemoconcentration
Follow CBC
#Subcentimeter R renal lesions
#Hx of nephrolithiasis
Too small to characterize
Advised close outpatient follow up
#Hypokalemia
2/2 diarrhea
Repleted and resolved
DVT prophylaxis�SQ lovenox as per GI
Full code
Total time spent to see the patient on the floor, examine the patient, review data and lab results, discuss treatment plan with patient, nursing staff around 36 minutes.
Physical Exam
General: No acute distress
HEENT: Normocephalic, Atraumatic, EOMI, MMM
Respiratory: Clear to Auscultation bilaterally
Cardiac: Normal S1/S2, Regular Rate and Rhythm
GI: Soft, Nontender, Nondistended, Normal Bowel Sounds
Extremities: No Clubbing, Cyanosis, or Edema
Neuro: Nonfocal/Grossly Intact
Psych: Calm, Cooperative
Derm: No Visible lesions
Anticipated Discharge: 24 - 48 hours
Subjective/Interval History
-
Date of Service: March 07, 2024
Patient continues to have bloody diarrhea. No abdominal pain. No fever, no vomiting.
Objective Data
-
Labs:
Laboratory Results
03/07/24
07:03
WBC 7.5
Hgb 7.9 L
Hct 23.6 L
Plt Count 229 D
Total Bilirubin 0.3
AST 52
ALT 102 H
Alkaline Phosphatase 136 H
Vital Signs:
Vital Signs
Temp Pulse Resp BP Pulse Ox
98 F 108 17 107/69 96
03/07/24 11:00 03/07/24 11:00 03/07/24 11:00 03/07/24 11:00 03/07/24 11:00
I&O
03/06/24 03/07/24 03/08/24
06:59 06:59 06:59
Intake Total 2960 / 2960 1780 / 1780
Output Total 2690 / 2690 950 / 950
Balance 270 / 270 830 / 830
[2024-03-08 08:28] LABS: Blood Urea Nitrogen 6 mg/dl (9-20); Calcium 7.7 mg/dl (8.4-10.2); Carbon Dioxide 32 mmol/L (22-30); Chloride 97 mmol/L (98-107); Estimated Creatinine Clearance > 125 ml/min; Glucose 132 mg/dl (70-99); Phosphorus 3.3 mg/dl (2.5-4.5); Potassium 4.2 mmol/L (3.5-5.1); Sodium 133 mmol/L (135-145); eGFR > 60.00
[2024-03-08] MEDS: DESENEX/MITRAZOL/ZEASORB 1 APPLIC TOPICAL ×2 (08:45→20:55)
[2024-03-08] MEDS: PENTASA 1000 MG PO ×4 (08:46→21:04)
[2024-03-08] MEDS: PROTONIX 40 MG PO (08:46)
[2024-03-08] MEDS: VISBIOME 2 CAP PO (08:46)
[2024-03-08 11:00] VITALS: BP 119/71
--- NOTE | 2024-03-08 12:52 | W.PN.GI.CBS2 ---
Today's Communication / Plan
-
continue current Rx
monitor Hb
Assessment / Plan
-
Pt is a 33yo with hx substance abuse from [facility], renal calculus with onset of rectal bleeding for several weeks after tooth infection with abx/ NSAID use. On admission noted with anemia with iron deficiency with
thrombocytosis with elevated CRP, leukocytosis with bandemia/fever and electrolyte imbalance and cT concern for pancolitis. + wt loss 16 lbs since onset.
-severe Ulcerative colitis with continued rectal bleeding and marked elevated fecal gemma
-anemia with iron deficiency
-ct concern for pancolitis
-leukocytosis/fever- improving
-hypokalemia
-elevated CRP
-electrolyte imbalance on admission
-hypoalbuminemia
-tooth infection with abx/NSAID use at onset of diarrhea
-wt loss
-dysphagia with regurgitation
-hx substance abuse with neg tox screen on admission
-hx renal stones/renal lesion on imaging
PLAN:
Lactose-free low-fat diet advised
Received first dose of Remicade 10 mg/kg on 03/06
remains on IV Solumedrol day # 7 . Clinical improvement with less frequent bowel movements but still with blood. CRP trending down. Hb stable around 7
Continue mesalamine
Medical team to consider transfusion if Hb < 7
Discussed with [facility] Nursing operations supervisor chemical cleaning-patient to be on maintenance Remicade infusion in 2, 6 weeks following discharge.
Follow-up with GI as outpatient on discharge
cont diet with supplement
continue Lovenox as very high risk for DVT
Colorectal surgery following
Total Time Spent with Patient (in minutes): 35
Subjective
Subjective
Date of Service: March 08, 2024
Continues to have loose stools with some blood (although patient claims no blood in the stool nursing confirm blood noted with stool when cleaning )
Objective
Data Reviewed
Laboratory Data:
Laboratory Results
03/08/24 06:37
03/08/24 06:37
Laboratory Results
PT 15.2 Sec (11.4-14.6) H 02/26/24 15:15
INR 1.20 02/26/24 15:15
Phosphorus 3.3 mg/dl (2.5-4.5) 03/08/24 06:37
Magnesium 2.0 mg/dl (1.6-2.3) 03/08/24 06:37
Total Bilirubin 0.3 mg/dl (0.2-1.3) 03/07/24 07:03
AST 52 U/L (17-59) 03/07/24 07:03
ALT 102 U/L (0-50) H 03/07/24 07:03
Alkaline Phosphatase 136 U/L (38-126) H 03/07/24 07:03
Lipase 16 U/L (23-300) L 02/26/24 15:16
Vital Signs and I&O:
Vital Signs
Temp Pulse Resp BP Pulse Ox
100 F 106 19 119/71 97
03/08/24 11:00 03/08/24 11:00 03/08/24 11:00 03/08/24 11:00 03/08/24 11:00
I&O
03/07/24 03/08/24 03/09/24
06:59 06:59 06:59
Intake Total 1780 / 1780 1200 / 1200
Output Total 950 / 950 300 / 300
Balance 830 / 830 900 / 900
Physical Exam
Physical Exam
GI: Soft, Non Distended and Non Tender
[2024-03-08 15:00] VITALS: BP 115/68
[2024-03-08] MEDS: LOVENOX 40 MG SC (16:42)
[2024-03-08] MEDS: TYLENOL 650 MG PO (16:44)
[2024-03-08 19:52] VITALS: BP 108/54
[2024-03-08 23:38] VITALS: BP 121/65
[2024-03-09 03:21] VITALS: BP 115/68
[2024-03-09 07:22] LABS: Hematocrit 24.5 % (39.0-52.0); Hemoglobin 7.8 g/dL (13.0-18.0); Mean Corp Hgb Conc. 31.8 g/dL (33.0-37.0); Mean Corpuscular Hgb 27.6 pg (27.0-31.0); Mean Corpuscular Volume 86.6 fL (80.0-94.0); Platelet Count 498 10^3/uL (130-400); Red Blood Cell Count 2.83 10^6/uL (4.70-6.10); Red Cell Dist. Width 15.5 % (11.5-14.5); White Blood Cell Count 8.6 10^3/uL (4.8-10.8)
[2024-03-09 07:30] VITALS: BP 133/74
[2024-03-09 09:06] LABS: Blood Urea Nitrogen 5 mg/dl (9-20); Calcium 7.9 mg/dl (8.4-10.2); Carbon Dioxide 30 mmol/L (22-30); Chloride 97 mmol/L (98-107); Estimated Creatinine Clearance > 125 ml/min; Glucose 125 mg/dl (70-99); Sodium 132 mmol/L (135-145); eGFR > 60.00
[2024-03-09] MEDS: VISBIOME 2 CAP PO (09:18)
[2024-03-09] MEDS: PENTASA 1000 MG PO ×4 (09:18→22:12)
[2024-03-09] MEDS: PROTONIX 40 MG PO (09:18)
[2024-03-09] MEDS: SOLU-MEDROL PF IV (09:18)
[2024-03-09] MEDS: DELTASONE 40 MG PO (09:20)
--- NOTE | 2024-03-09 09:50 | W.PN.CRS1 ---
Today's Communication / Plan
-
as below
Assessment/Plan
-
33-year-old incarcerated male, H of drug abuse, who presents with 1 month of bloody diarrhea, about 10-12 episodes per day, who was brought to the ER due to persistent symptoms; seen by GI and workup so far is concerning for ulcerative colitis
(infectious workup unrevealing; CT on 02/25 showed pancolitis, but difficult study due to no enteric contrast; colonoscopy on 03/02 showed severe sutton colitis); patient started on steroids and was given a Remicade dose on 03/06
Tmax 100.0, HR 90s�110s, normotensive, UOP 1.0 L
WBC 8.6 from 6.9, Hb 7.8 from 7.3, CRP 56 from 50 (from 240)
�Severe pancolitis, likely ulcerative colitis
�Elevated inflammatory markers, infectious workup negative
�Continue steroids and Remicade
�Albumin 2.1; send repeat CRP and prealbumin
�Patient with severe episode but no emergent surgery currently indicated; continues to have 8+ BMs per day; discussed the risks between surgery and nonoperative management; expressed concern about persistently elevated CRP and continued diarrhea
with 8 episodes in last 24 hours; patient stated he would like to avoid surgery at this point; will continue to monitor
� Diet per primary and GI
-Low albumin, pending prealbumin
-Recommend enteric nutritional supplementation versus parenteral; recommend nutrition consult
� Continue DVT PPx
Subjective Data
Subjective Data
Date of Service: March 09, 2024
No overnight events.
He has had 8 liquidy BMs since yesterday, denies any blood in the stool.
Denies nausea/vomiting. Tolerating diet.
+flatus +voiding
Stating that he wants to avoid surgery
Objective Data
-
Vital Signs
Temp Pulse Resp BP Pulse Ox
98.8 F 94 16 133/74 99
03/09/24 07:30 03/09/24 07:30 03/09/24 07:30 03/09/24 07:30 03/09/24 07:30
Intake & Output
03/08/24 03/09/24 03/10/24
06:59 06:59 06:59
Intake Total 1200 / 1200 1600 / 1600
Output Total 300 / 300 1050 / 1050
Balance 900 / 900 550 / 550
Intake:
Oral fluids 1200 / 1200 1600 / 1600
Output:
Urine, Voided 300 / 300 1050 / 1050
Other:
Number of approximated MODERATE 2
amounts of urine
How many times incontinent 6
MODERATE amount urine
Number of unmeasured liquid
stools
Rectum 6 2
Lab Results
03/09/24 06:48
03/09/24 06:48
Physical Exam
-
General: No Acute Distress, AOx3 and Other (Pale)
HEENT: Grossly Normal
Abdomen: Soft, Non Distended, Non Tender, No Guarding and No Rebound
Skin: Warm and Dry
--- NOTE | 2024-03-09 10:55 | CM ---
Reviewed chart, patient tolerating diet per MD notes. Patient functioning at baseline level. Will return to [facility] when medically cleared for discharge.
Plan: Case management will continue to follow and assist with discharge planning. Patient will return to group home when stable.
[2024-03-09] MEDS: DESENEX/MITRAZOL/ZEASORB TOPICAL ×2 (11:15→20:10)
[2024-03-09 12:00] VITALS: BP 116/70
--- NOTE | 2024-03-09 13:45 | W.PN.HOSP.TC ---
Today's Communication/Plan
-
IVF, monitor 24h
possible d/c in 24-48h depending on GI and ColorectalSx plans
Assessment / Plan
Assessment / Plan
33yo M with no significant medical history except of drug abuse brought from [facility] (was incarcerated for 3 months) with persistent abd pain, bright red blood in stool, diarrhea, lack of appetite for 3 weeks. 1 unit PRBC
given on 02/26/24. Neg stool Cx so Id stopped Abx. colonoscopy on 03/02/24 showed UC. Hyponatremia improved on hydration. Started on steroids and Ramicade. Declined Sx as per communication with [facility].
AP:
#Pancolitis (infectious vs inflammatory)
#Lower GIB with acute blood loss anemia with NORBERTO
calprotectin significantly elevated
Multiple WBC in the stool
Cryptosporidia, Giardia and C.diff neg
Two large bore IV and follow serial Hgb, transfuse if further drop by 2.0 or more or if Hgb <8
PPI
CLD on admission and GI for further mgmt: colonoscopy on 03/02/24 showed UC, started on steroids and Remicade (GI communicated to [facility] for further injections)
ColorectalSx follows - patient would like to avoid Sx as per discussion on 03/09/24
#COag neg staph in one set of Bcx, r/o bacteremia
repeated Bcx neg, suspect contamination. ID consult: confirmed that no need to treat
#Hyponatremia
Most likely hypovolemic
IVF PRN
#Leukocytosis
#Thrombocytosis
Most likely either 2/2 IBD
follow CBC
#Subcentimeter R renal lesions
too small to characterize
mgmt as per GI - advise close outpatient follow up
#Hypokalemia
2/2 diarrhea
replete and follow potassium
DVT ppx SCDs
Full code
I have spent at least 36 min reviewing chart, test results, communication with consultants and direct patient care
Anticipated Discharge: 24 - 48 hours
Subjective/Interval History
-
Date of Service: March 09, 2024
Objective Data
-
Labs:
Laboratory Results
03/09/24
06:48
WBC 8.6
Hgb 7.8 L
Hct 24.5 L
Plt Count 498 H
Sodium 132 L
Potassium 4.0
Chloride 97 L
Carbon Dioxide 30
BUN 5 L
Creatinine 0.5 L
Glucose 125 H
Calcium 7.9 L
Vital Signs:
Vital Signs
Temp Pulse Resp BP Pulse Ox
99.0 F 110 16 116/70 98
03/09/24 12:00 03/09/24 12:00 03/09/24 12:00 03/09/24 12:00 03/09/24 12:00
I&O
03/08/24 03/09/24 03/10/24
06:59 06:59 06:59
Intake Total 1200 / 1200 1600 / 1600
Output Total 300 / 300 1050 / 1050
Balance 900 / 900 550 / 550
Review of Systems
-
History Source: Patient
All other systems: Reviewed and negative
Abdomen/GI: Reports Diarrhea
Physical Exam
-
General: No Apparent Distress
HEENT: Normocephalic
Respiratory: Clear to Auscultation
Cardiac: Regular Rhythm
GI: Soft, Nontender and Nondistended
Genito-urinary: No Costovertebral Tender
Musculoskeletal: No Clubbing, No Cyanosis and No Edema
Skin: Warm
Neuro: Awake, Alert, Oriented and AO x 3
Psych: Calm
[2024-03-09 13:46] LABS: Prealbumin (Transthyretin) 18.1 mg/dl (17.6-36.0)
[2024-03-09] MEDS: NSS 1000 IV ×2 (14:51→22:13)
[2024-03-09 16:00] VITALS: BP 112/72
[2024-03-09] MEDS: LOVENOX 40 MG SC (17:06)
--- NOTE | 2024-03-09 19:44 | W.PN.GI.CBS2 ---
Addendum entered and electronically signed by Gladys Hernandez MD 03/09/24 22:17:
will recommend nutrition eval
Original Note:
Today's Communication / Plan
-
Switch to oral steroid
Assessment / Plan
-
Pt is a 33yo with hx substance abuse from [facility], renal calculus with onset of rectal bleeding for several weeks after tooth infection with abx/ NSAID use. On admission noted with anemia with iron deficiency with
thrombocytosis with elevated CRP, leukocytosis with bandemia/fever and electrolyte imbalance and cT concern for pancolitis. + wt loss 16 lbs since onset.
-severe Ulcerative colitis with continued rectal bleeding and marked elevated fecal gemma
-anemia with iron deficiency
-ct concern for pancolitis
-leukocytosis/fever- improving
-hypokalemia
-elevated CRP
-electrolyte imbalance on admission
-hypoalbuminemia
-tooth infection with abx/NSAID use at onset of diarrhea
-wt loss
-dysphagia with regurgitation
-hx substance abuse with neg tox screen on admission
-hx renal stones/renal lesion on imaging
PLAN:
Lactose-free low-fat diet advised
Received first dose of Remicade 10 mg/kg on 03/06
Will switch to oral prednisone 40 mg. Will DC Solu-Medrol
Clinical improvement with less frequent bowel movements but still loose with blood tinge. CRP trending down. Hb stable around 7
Continue mesalamine
Medical team to consider transfusion if Hb < 7
Discussed with [facility] Nursing instructional supervisor-patient to be on maintenance Remicade infusion in 2, 6 weeks following discharge.
Follow-up with GI as outpatient on discharge-
cont diet with supplement
continue Lovenox as very high risk for DVT
Colorectal surgery following
Total Time Spent with Patient (in minutes): 35
Subjective
Subjective
Date of Service: March 09, 2024
Patient continues to have loose stools with blood tinge. Denies any abdominal pain/nausea/vomiting
Objective
Data Reviewed
Laboratory Data:
Laboratory Results
03/09/24 06:48
03/09/24 06:48
Laboratory Results
PT 15.2 Sec (11.4-14.6) H 02/26/24 15:15
INR 1.20 02/26/24 15:15
Phosphorus 3.3 mg/dl (2.5-4.5) 03/08/24 06:37
Magnesium 2.0 mg/dl (1.6-2.3) 03/08/24 06:37
Total Bilirubin 0.3 mg/dl (0.2-1.3) 03/07/24 07:03
AST 52 U/L (17-59) 03/07/24 07:03
ALT 102 U/L (0-50) H 03/07/24 07:03
Alkaline Phosphatase 136 U/L (38-126) H 03/07/24 07:03
Lipase 16 U/L (23-300) L 02/26/24 15:16
Vital Signs and I&O:
Vital Signs
Temp Pulse Resp BP Pulse Ox
98.2 F 107 16 112/72 99
03/09/24 16:00 03/09/24 16:00 03/09/24 16:00 03/09/24 16:00 03/09/24 16:00
I&O
03/08/24 03/09/24 03/10/24
06:59 06:59 06:59
Intake Total 1200 / 1200 1600 / 1600 1140 / 1140
Output Total 300 / 300 1050 / 1050 800 / 800
Balance 900 / 900 550 / 550 340 / 340
Physical Exam
Physical Exam
GI: Soft, Non Distended and Non Tender
[2024-03-09 19:54] VITALS: BP 124/75
[2024-03-09] MEDS: TYLENOL 650 MG PO (22:18)
[2024-03-09 23:13] VITALS: BP 130/80
[2024-03-10] MEDS: TYLENOL 650 MG PO ×3 (03:15→15:39)
[2024-03-10] MEDS: NSS 1000 IV (05:53)
[2024-03-10 07:00] VITALS: BP 112/70
[2024-03-10 07:18] LABS: ALT (SGPT) 111 U/L (0-50); AST (SGOT) 40 U/L (17-59); Albumin 2.1 g/dl (3.5-5.0); Alkaline Phosphatase 161 U/L (38-126); Blood Urea Nitrogen 5 mg/dl (9-20); Calcium 7.7 mg/dl (8.4-10.2); Carbon Dioxide 30 mmol/L (22-30); Chloride 97 mmol/L (98-107); Estimated Creatinine Clearance > 125 ml/min; Glucose 99 mg/dl (70-99); Potassium 3.9 mmol/L (3.5-5.1); Sodium 132 mmol/L (135-145); Total Bilirubin 0.3 mg/dl (0.2-1.3); Total Protein 4.7 g/dl (6.3-8.2); eGFR > 60.00
[2024-03-10] MEDS: PENTASA 1000 MG PO ×4 (07:45→21:55)
[2024-03-10] MEDS: VISBIOME 2 CAP PO (07:45)
[2024-03-10] MEDS: PROTONIX 40 MG PO (07:46)
[2024-03-10] MEDS: DESENEX/MITRAZOL/ZEASORB TOPICAL ×2 (08:00→19:57)
[2024-03-10 08:17] LABS: Hematocrit 25.8 % (39.0-52.0); Hemoglobin 8.2 g/dL (13.0-18.0); Mean Corp Hgb Conc. 31.8 g/dL (33.0-37.0); Mean Corpuscular Hgb 28.5 pg (27.0-31.0); Mean Corpuscular Volume 89.6 fL (80.0-94.0); Platelet Count 470 10^3/uL (130-400); Red Blood Cell Count 2.88 10^6/uL (4.70-6.10); Red Cell Dist. Width 15.6 % (11.5-14.5)
[2024-03-10 08:18] LABS: Absolute Neutrophils -Man Diff 4.5 10^3/uL (1.4-6.5); Band Neutrophils 20 % (0-3); Lymphocytes 36 % (20-51); Monocytes 7 % (2-9); Segmented Neutrophils 31 % (42-75)
[2024-03-10 08:19] LABS: Anisocytosis 1+; Eosinophils 3 % (0-6); Hypochromasia 1+; Myelocytes 3 % (-); Normal RBC Morphology No; Platelets Checked Yes; Polychromasia Slight; Total Cells Counted 100
--- NOTE | 2024-03-10 09:03 | W.PN.CRS1 ---
Today's Communication / Plan
-
As below
Assessment/Plan
-
33-year-old incarcerated male, H of drug abuse, who presents with 1 month of bloody diarrhea, about 10-12 episodes per day, who was brought to the ER due to persistent symptoms; seen by GI and workup so far is concerning for ulcerative colitis
(infectious workup unrevealing; CT on 02/25 showed pancolitis, but difficult study due to no enteric contrast; colonoscopy on 03/02 showed severe sutton colitis); patient started on steroids and was given a Remicade dose on 03/06
Tmax 101.8, HR 90s�110s, normotensive, UOP 1.1 L
WBC 8.6 from 6.9, Hb 8.2 from 7.8, CRP 62.5 from 56 (from 240 on admission)
�Severe pancolitis, likely ulcerative colitis
�Elevated inflammatory markers, infectious workup negative
�Appreciate GI: Continue steroids and Remicade; discussed with Dr. Loyola, recommend switching back to IV Solu-Medrol
�Albumin 2.1; prealbumin 18.1; appreciate nutrition consult
�Had lengthy discussion with patient regarding nonoperative versus operative management of ulcerative colitis; explained that he has been on steroids for over a week and has received a dose of Remicade and has evidence of clinical worsening since
yesterday (i.e.�fevers overnight, uptrend in CRP, mildly increase in tachycardia) and his BMs continue to be about 10/day, now nonbloody; I explained the risks with continued nonoperative management including, but not limited to, worsening of
clinical status, sepsis and possible ; I explained the risks of surgery, including, but not limited to, bleeding, infection, need for an ostomy, pain, change in bowel function, need for future surgeries; currently, patient is still refusing
surgery, but did ask more questions about postoperative function; explained that if he starts to develop sepsis, emergent surgery would be necessary and he understood this
� Keep n.p.o. for bowel rest
�Appreciate hospitalist
� Continue DVT PPx
Subjective Data
Subjective Data
Date of Service: March 10, 2024
No overnight events.
Denies any abdominal pain.
Denies nausea/vomiting.
Still having 10 BMs in the last 24 hours, denies blood in the stool.
Stating that he does not want surgery and does not want an ostomy.
Objective Data
-
Vital Signs
Temp Pulse Resp BP Pulse Ox
100.9 F H 118 14 112/70 99
03/10/24 07:00 03/10/24 07:00 03/10/24 07:00 03/10/24 07:00 03/10/24 07:00
Intake & Output
03/09/24 03/10/24 03/11/24
06:59 06:59 06:59
Intake Total 1600 / 1600 3840 / 3840
Output Total 1050 / 1050 1100 / 1100
Balance 550 / 550 2740 / 2740
Intake:
Oral fluids 1600 / 1600 1860 / 1860
Amount of oral supplement(s) 480 / 480
consumed
IV fluids (Total) 1500 / 1500
Output:
Urine, Voided 1050 / 1050 1100 / 1100
Other:
Number of approximated MODERATE 2 3
amounts of urine
Number of unmeasured liquid
stools
Rectum 2 4
Lab Results
03/10/24 06:18
03/10/24 06:18
Physical Exam
-
General: No Acute Distress, AOx3 and Other (pale)
HEENT: Grossly Normal
Abdomen: Soft, Non Distended, Non Tender, No Guarding and No Rebound
Neurological: No Motor Deficits
Skin: Warm and Dry
[2024-03-10] MEDS: DELTASONE 40 MG PO (11:13)
--- NOTE | 2024-03-10 12:00 | PTCARENOTE ---
Pt released from [facility] custody. Guards informed staff, unshackled pt and left the hospital.
--- NOTE | 2024-03-10 14:53 | W.PN.HOSP.TC ---
Today's Communication/Plan
-
septic w/u
keep on CLD
Assessment / Plan
Assessment / Plan
33yo M with no significant medical history except of drug abuse brought from [facility] (was incarcerated for 3 months) with persistent abd pain, bright red blood in stool, diarrhea, lack of appetite for 3 weeks. 1 unit PRBC
given on 02/26/24. Neg stool Cx so Id stopped Abx. colonoscopy on 03/02/24 showed UC. Hyponatremia improved on hydration. Started on steroids and Ramicade. ColorectalSx involved as inflammation did not subside on steroids. With persistent inflammation
- careful monitoring for early signs of sepsis
AP:
#Pancolitis (infectious vs inflammatory)
#Lower GIB with acute blood loss anemia with NORBERTO
calprotectin significantly elevated
Multiple WBC in the stool
Cryptosporidia, Giardia and C.diff neg
Two large bore IV and follow serial Hgb, transfuse if further drop by 2.0 or more or if Hgb <8
PPI
CLD on admission and GI for further mgmt: colonoscopy on 03/02/24 showed UC, started on steroids and Remicade ([facility])
ColorectalSx follows - patient would like to avoid Sx as per discussion on 03/09/24
#COag neg staph in one set of Bcx, r/o bacteremia
repeated Bcx neg, suspect contamination. ID consult: confirmed that no need to treat
#Hyponatremia
Most likely hypovolemic
IVF PRN
#Leukocytosis
#Thrombocytosis
Most likely either 2/2 IBD
follow CBC
#Subcentimeter R renal lesions
too small to characterize
mgmt as per GI - advise close outpatient follow up
#Hypokalemia
2/2 diarrhea
replete and follow potassium
DVT ppx SCDs
Full code
I have spent at least 36 min reviewing chart, test results, communication with consultants and direct patient care
Anticipated Discharge: > 48 hours
Subjective/Interval History
-
Date of Service: March 10, 2024
Objective Data
-
Labs:
Laboratory Results
03/10/24
06:18
WBC 9.0
Hgb 8.2 L
Hct 25.8 L
Plt Count 470 H
Sodium 132 L
Potassium 3.9
Chloride 97 L
Carbon Dioxide 30
BUN 5 L
Creatinine 0.6 L
Glucose 99
Calcium 7.7 L
Total Bilirubin 0.3
AST 40
ALT 111 H
Alkaline Phosphatase 161 H
Vital Signs:
Vital Signs
Temp Pulse Resp BP Pulse Ox
99.6 F 118 14 112/70 99
03/10/24 11:35 03/10/24 07:00 03/10/24 07:00 03/10/24 07:00 03/10/24 07:00
I&O
03/09/24 03/10/24 03/11/24
06:59 06:59 06:59
Intake Total 1600 / 1600 3840 / 3840
Output Total 1050 / 1050 1100 / 1100 300 / 300
Balance 550 / 550 2740 / 2740 -300 / -300
Review of Systems
-
History Source: Patient
All other systems: Reviewed and negative
Physical Exam
-
General: Cachectic
HEENT: Moist Mucous Membranes
Respiratory: Clear to Auscultation
Cardiac: Regular Rhythm
GI: Soft, Nontender and Nondistended
Genito-urinary: No Costovertebral Tender
Musculoskeletal: No Clubbing, No Cyanosis and No Edema
Skin: Warm
Neuro: Awake, Alert, Oriented and AO x 3
Psych: Calm
[2024-03-10 15:00] VITALS: BP 108/60
--- NOTE | 2024-03-10 15:08 | W.PN.GI.CBS2 ---
Today's Communication / Plan
-
Solumedrol IV 40mg BID restarted.
Day 4 Remicade 10mg/kg
If no further response, consider 2nd dose remicade 10mg/kg on day 5
Colorectal Surgery following if he fails medical therapy.
Clears
Assessment / Plan
-
Pt is a 33yo with hx substance abuse from [facility], renal calculus with onset of rectal bleeding for several weeks after tooth infection with abx/ NSAID use. On admission noted with anemia with iron deficiency with
thrombocytosis with elevated CRP, leukocytosis with bandemia/fever and electrolyte imbalance and cT concern for pancolitis. + wt loss 16 lbs since onset.
-severe Ulcerative colitis with continued rectal bleeding and marked elevated fecal gemma. Remicade 10mg/kg on 03/06
-anemia with iron deficiency
-ct concern for pancolitis
-leukocytosis/fever- improving
-hypokalemia
-elevated CRP
-electrolyte imbalance on admission
-hypoalbuminemia
-tooth infection with abx/NSAID use at onset of diarrhea
-wt loss
-dysphagia with regurgitation
-hx substance abuse with neg tox screen on admission
-hx renal stones/renal lesion on imaging
Subjective
Subjective
Date of Service: March 10, 2024
Bleeding has subsided but diarrhea continues, up to 8 liquid BMs/day. Denies abd pain
Objective
Data Reviewed
Laboratory Data:
Laboratory Results
03/10/24 06:18
03/10/24 06:18
Laboratory Results
PT 15.2 Sec (11.4-14.6) H 02/26/24 15:15
INR 1.20 02/26/24 15:15
Phosphorus 3.3 mg/dl (2.5-4.5) 03/08/24 06:37
Magnesium 2.0 mg/dl (1.6-2.3) 03/08/24 06:37
Total Bilirubin 0.3 mg/dl (0.2-1.3) 03/10/24 06:18
AST 40 U/L (17-59) 03/10/24 06:18
ALT 111 U/L (0-50) H 03/10/24 06:18
Alkaline Phosphatase 161 U/L (38-126) H 03/10/24 06:18
Lipase 16 U/L (23-300) L 02/26/24 15:16
Vital Signs and I&O:
Vital Signs
Temp Pulse Resp BP Pulse Ox
99.6 F 118 14 112/70 99
03/10/24 11:35 03/10/24 07:00 03/10/24 07:00 03/10/24 07:00 03/10/24 07:00
I&O
03/09/24 03/10/24 03/11/24
06:59 06:59 06:59
Intake Total 1600 / 1600 3840 / 3840
Output Total 1050 / 1050 1100 / 1100 300 / 300
Balance 550 / 550 2740 / 2740 -300 / -300
Physical Exam
Physical Exam
GI: Soft, Non Distended and Non Tender
[2024-03-10] MEDS: D5LR 1000 IV (15:39)
[2024-03-10] MEDS: SOLU-MEDROL PF 40 MG IV (15:39)
[2024-03-10 15:51] LABS: Procalcitonin 0.47 ng/ml (0.0-0.25)
--- NOTE | 2024-03-10 16:15 | W.PN.UPDATE ---
Update Note
Progress Note Update
With worsening fevers and elevated procal - septic w/u and start Abx
[2024-03-10] MEDS: LOVENOX 40 MG SC (17:11)
[2024-03-10] MEDS: OMNIPAQUE 50 ML PO (17:11)
[2024-03-10] MEDS: ZOSYN 50 IV (20:31)
[2024-03-10 22:13] LABS: Urine Albumin Negative (Neg - Trace); Urine Bilirubin Negative (Negative); Urine Character Clear (Clear); Urine Color Yellow; Urine Glucose Negative (Negative); Urine Ketone Negative (Negative); Urine Leukocyte Negative (Negative); Urine Nitrite Negative (Negative); Urine Occult Blood Negative (Negative); Urine Urobilinogen Negative (Neg - 1+)
[2024-03-10 23:48] VITALS: BP 104/64
[2024-03-11] MEDS: ZOSYN 50 IV ×4 (02:58→20:05)
[2024-03-11] MEDS: D5LR 1000 IV (02:58)
[2024-03-11] MEDS: SOLU-MEDROL PF 40 MG IV ×2 (03:45→17:01)
--- NOTE | 2024-03-11 05:07 | DOWNTIME ---
There was a [employer] Downtime on 03/11/2024 from 0100 to 03/11/2024 at 0252. Downtime documentation of patient's care, including medication administrations, has been reconciled in the electronic record per guidelines. Refer to the
patient's paper chart under the miscellaneous tab to see printed paper medication records and downtime forms.
[2024-03-11] MEDS: D5LR IV (06:32)
[2024-03-11 07:00] VITALS: BP 100/62
[2024-03-11] MEDS: PENTASA 1000 MG PO ×4 (08:03→21:00)
[2024-03-11] MEDS: VISBIOME 2 CAP PO (08:03)
[2024-03-11] MEDS: PROTONIX 40 MG PO (08:03)
[2024-03-11] MEDS: DESENEX/MITRAZOL/ZEASORB TOPICAL ×2 (08:03→19:26)
--- NOTE | 2024-03-11 10:35 | W.PN.HOSP.TC ---
Today's Communication/Plan
-
pending further mgmt by ColorectalSx and GI
Assessment / Plan
Assessment / Plan
33yo M with no significant medical history except of drug abuse [facility] with persistent abd pain, bright red blood in stool, diarrhea, lack of appetite for 3 weeks. 1 unit PRBC
given on 02/26/24. Neg stool Cx so Id stopped Abx. colonoscopy on 03/02/24 showed UC. Hyponatremia improved on hydration. Started on steroids and Ramicade. ColorectalSx involved as inflammation did not subside on steroids. With worsening fevers and
newly elevated procalcitonin - started back on Zosyn on 03/10/24
AP:
#Pancolitis (infectious vs inflammatory)
#Lower GIB with acute blood loss anemia with NORBERTO
calprotectin significantly elevated
Multiple WBC in the stool
Cryptosporidia, Giardia and C.diff neg
Two large bore IV and follow serial Hgb, transfuse if further drop by 2.0 or more or if Hgb <8
PPI
CLD on admission and GI for further mgmt: colonoscopy on 03/02/24 showed UC, started on steroids and Remicade ([facility])
ColorectalSx follows - might need surgical intervention
GI for furhter mgmt: plan for possible Remicade on day 5 after the first dose
Repeated CT abd on 03/10/24 showed persistent pancolitis
#Worsening fevers on 03/10/24
Procal elevated
BCx pending
Chest XR neg
Start empiric Zosyn with persistent pancolitis
#R penal lesion
possible cyst
US Renal
#Coag neg staph in one set of Bcx, r/o bacteremia
repeated Bcx neg, suspect contamination. ID consult: confirmed that no need to treat
#Hyponatremia
Most likely hypovolemic
IVF PRN
#Leukocytosis
#Thrombocytosis
Most likely 2/2 IBD
follow CBC
#Hypokalemia
2/2 diarrhea
replete and follow potassium
DVT ppx SCDs
Full code
I have spent at least 56 min reviewing chart, test results, communication with consultants and direct patient care
Anticipated Discharge: > 48 hours
Subjective/Interval History
-
Date of Service: March 11, 2024
Objective Data
-
Vital Signs:
Vital Signs
Temp Pulse Resp BP Pulse Ox
97.7 F 99 17 100/62 95
03/11/24 07:00 03/11/24 07:00 03/11/24 07:00 03/11/24 07:00 03/11/24 08:10
I&O
03/10/24 03/11/24 03/12/24
06:59 06:59 06:59
Intake Total 3840 / 3840
Output Total 1100 / 1100 675 / 675
Balance 2740 / 2740 -675 / -675
Review of Systems
-
History Source: Patient
All other systems: Reviewed and negative
Abdomen/GI: Reports Abdominal Pain and Diarrhea
Physical Exam
-
General: No Apparent Distress
HEENT: Normocephalic
Respiratory: Clear to Auscultation
Cardiac: Regular Rhythm
Psych: Calm
--- NOTE | 2024-03-11 11:30 | W.PN.GI.CBS2 ---
Today's Communication / Plan
-
Seems to be improving s/p remicade 10mg/kg day 5
Cont IV solumedrol
Advance to soft diet
Hold off on repeat remicade today given his fever. IV zosyn started
Check f/u CRP
Assessment / Plan
-
Summary: 33yo with hx substance abuse from [facility], renal calculus with onset of rectal bleeding for several weeks after tooth infection with abx/ NSAID use. On admission noted with anemia with iron deficiency with
thrombocytosis with elevated CRP, leukocytosis with bandemia/fever and electrolyte imbalance and CT concern for pancolitis. + wt loss 16 lbs since onset.
03/02/24 COLON- Severe pancolitis (congestion, erythema, granular, ulcerated) bx moderate acute/chronic inflammation, negative CMV
Impression:
-severe Ulcerative pancolitis with continued rectal bleeding and marked elevated fecal gemma. Remicade 10mg/kg on 03/06
-anemia with iron deficiency
-elevated CRP 83.5
-hypoalbuminemia 1.1
-tooth infection with abx/NSAID use at onset of diarrhea
-hx substance abuse with neg tox screen on admission
-hx renal stones/renal lesion on imaging
Subjective
Subjective
Date of Service: March 11, 2024
Feeling better today, but had fever 101 overnight. Fewer BMs, only 3 times overnight and this am (was having 7-8 BMs overnight prior). No bleeding
Objective
Data Reviewed
Laboratory Data:
Laboratory Results
03/10/24 06:18
03/10/24 06:18
Laboratory Results
PT 15.2 Sec (11.4-14.6) H 02/26/24 15:15
INR 1.20 02/26/24 15:15
Phosphorus 3.3 mg/dl (2.5-4.5) 03/08/24 06:37
Magnesium 2.0 mg/dl (1.6-2.3) 03/08/24 06:37
Total Bilirubin 0.3 mg/dl (0.2-1.3) 03/10/24 06:18
AST 40 U/L (17-59) 03/10/24 06:18
ALT 111 U/L (0-50) H 03/10/24 06:18
Alkaline Phosphatase 161 U/L (38-126) H 03/10/24 06:18
Lipase 16 U/L (23-300) L 02/26/24 15:16
Vital Signs and I&O:
Vital Signs
Temp Pulse Resp BP Pulse Ox
97.7 F 99 17 100/62 95
03/11/24 07:00 03/11/24 07:00 03/11/24 07:00 03/11/24 07:00 03/11/24 08:10
I&O
03/10/24 03/11/24 03/12/24
06:59 06:59 06:59
Intake Total 3840 / 3840
Output Total 1100 / 1100 675 / 675
Balance 2740 / 2740 -675 / -675
Physical Exam
Physical Exam
GI: Soft and Non Tender
--- NOTE | 2024-03-11 11:59 | W.PN.CRS1 ---
Today's Communication / Plan
-
Tentative OR tomorrow
Assessment/Plan
-
33-year-old incarcerated male, H of drug abuse, who presents with 1 month of bloody diarrhea, about 10-12 episodes per day, who was brought to the ER due to persistent symptoms; seen by GI and workup so far is concerning for ulcerative colitis
(infectious workup unrevealing; CT on 02/25 showed pancolitis, but difficult study due to no enteric contrast; colonoscopy on 03/02 showed severe sutton colitis); patient started on steroids and was given a Remicade dose on 03/06
Tmax 101.8, HR 90s�110s, normotensive
WBC pending, CRP 62.5 from 56 (from 240 on admission)
�Severe pancolitis, likely ulcerative colitis
�Elevated inflammatory markers, infectious workup negative
�Appreciate GI: Continue steroids and Remicade
�Albumin 2.1; prealbumin 18.1; appreciate nutrition consult
- Given his nonimprovement, he has tentatively been added to the operating room schedule tomorrow with Dr. Short. Okay to eat today. N.p.o. at midnight. Discussed with patient who is in agreement with surgery. He has already been marked by wound
care.
�Appreciate hospitalist
-Repeat CBC this morning
-CT abdomen and pelvis yesterday with no changes
Subjective Data
Subjective Data
Date of Service: March 11, 2024
Patient states he feels 'okay'. He has not had any bleeding overnight. He is not tender. He is not having vomiting. He is happy.
Objective Data
-
Vital Signs
Temp Pulse Resp BP Pulse Ox
97.7 F 99 17 100/62 95
03/11/24 07:00 03/11/24 07:00 03/11/24 07:00 03/11/24 07:00 03/11/24 08:10
Intake & Output
03/10/24 03/11/24 03/12/24
06:59 06:59 06:59
Intake Total 3840 / 3840
Output Total 1099 / 10995 / 5
Balance 2740 / 2740 - / -5
Intake:
Oral fluids 1860 / 1859
Amount of oral supplement(s) 480 / 480
consumed
IV fluids (Total) 1500 / 1500
Output:
Urine, Voided 1099 / 1099 / 5
Other:
Number of approximated MODERATE 3
amounts of urine
Number of unmeasured liquid
stools
Rectum 4
Lab Results
03/10/24 06:18
Physical Exam
-
General: No Acute Distress and AOx3
Abdomen: Soft, Non Distended and Non Tender
Skin: Warm and Dry
[2024-03-11 13:13] LABS: Hematocrit 22.2 % (39.0-52.0); Hemoglobin 7.3 g/dL (13.0-18.0); Mean Corp Hgb Conc. 32.9 g/dL (33.0-37.0); Mean Corpuscular Hgb 27.8 pg (27.0-31.0); Mean Corpuscular Volume 84.4 fL (80.0-94.0); Mean Platelet Volume 8.5 fL (7.4-10.4); Platelet Count 345 10^3/uL (130-400); Red Blood Cell Count 2.63 10^6/uL (4.70-6.10); Red Cell Dist. Width 15.3 % (11.5-14.5); White Blood Cell Count 7.5 10^3/uL (4.8-10.8)
[2024-03-11 13:55] LABS: % Basophils 0.8 % (0-2); % Eosinophils 0.1 % (0-6); % Immature Granulocytes 1.2 % (0-0.5); % Lymphocytes 11.1 % (20.5-51.1); % Monocytes 9.2 % (1.7-9.3); % Neutrophils 77.6 % (42.2-75.2); Absolute Basophils 0.1 10^3/uL (0-0.2); Absolute Immature Granulocytes 0.1 10^3/uL (0-0.05); Absolute Lymphocytes 0.8 10^3/uL (1.2-3.4); Absolute Monocytes 0.7 10^3/uL (0.1-0.6); Absolute Neutrophils 5.8 10^3/uL (1.4-6.5); Nucleated Red Blood Cells % 0 % (-)
--- NOTE | 2024-03-11 13:58 | W.PN.UPDATE ---
Update Note
Progress Note Update
drop in Hgb noted - will recheck in 12h and if further drop - transfuse. Patient however reported non-bloody stools
--- NOTE | 2024-03-11 14:43 | CM ---
Reviewed chart, patient released from Police Custody. Met with patient who stated that when he returns home, he will be going home to [place] and family will transport him.
Plan: Case management will continue to follow and assist with discharge planning. Home when stable.
--- NOTE | 2024-03-11 14:49 | W.PN.ID1 ---
Date of Service
Date of Service: March 11, 2024
Today's Communication
Continue Zosyn for today.
Assessment / Plan
# Bloody diarrhea x >4 weeks
# Fever
- improved but returned.
# Leukocytosis - resolved
# Blood loss anemia
- Given chronicity of diarrhea, less likely infectious.
- Stool many wbc, C. dif neg, O+P neg, Norovirus neg, Stool cx neg.
- Suspect IBD.
Will Continue with empiric Zosyn for the present and monitor cultures along with white count and temperature curve.
# Substance abuse
- HIV neg, HCV neg.
Chief Complaint
-: Fever and Other (Bloody diarrhea)
Subjective / Review of Systems
Asked to see patient for evaluation of fever. Patient was seen on 03/01. At that time he was being observed off antibiotics. Prior to that there was a history of fevers which seem to improve, only to return over the past 48 to 72 hours. He has
been started on empiric Zosyn, and Infectious Diseases is asked to comment upon further antimicrobial therapy.
At this time, he denies any abdominal pain. Temperatures have improved over the past 12 hours. He reports that he has not had any chills, and did not feel feverish.
Review of Systems: No Fever and No Chills
Vital Signs / Physical Exam
Vital Signs
Vital Signs
Temp Pulse Resp BP Pulse Ox
97.7 F 99 17 100/62 95
03/11/24 07:00 03/11/24 07:00 03/11/24 07:00 03/11/24 07:00 03/11/24 08:10
Physical Exam
Constitutional: No Acute Distress, Comfortable and Non-toxic
Eyes: No Conjunctival Hemorrhage and Sclera Anicteric
Cardiovascular: S1/S2; Negative S3/S4
Pulmonary: Clear and Non Labored
Gastrointestinal: Soft, Non Tender, Non Distended, Normal Bowel Sounds, No Rebound and No Guarding
Neurological: Awake and Alert
Psychological: Calm
Objective Data
Lab Data
Lab Results
03/11/24 12:48
03/10/24 06:18
PT 15.2 Sec (11.4-14.6) H 02/26/24 15:15
INR 1.20 02/26/24 15:15
Estimated Creat Clear > 125 ml/min 03/10/24 06:18
Lactic Acid 1.4 mmol/L (0.7-2.0) 02/26/24 21:46
Total Bilirubin 0.3 mg/dl (0.2-1.3) 03/10/24 06:18
AST 40 U/L (17-59) 03/10/24 06:18
ALT 111 U/L (0-50) H 03/10/24 06:18
Alkaline Phosphatase 161 U/L (38-126) H 03/10/24 06:18
C-Reactive Protein 83.50 mg/L (0.0-10.00) H 03/10/24 06:18
Most recent labs reviewed.
Micro Results:
03/10/24 16:40 Blood Culture - Pending
Blood/Venous
03/10/24 16:31 Blood Culture - Pending
Blood/Venous
02/26/24 16:26 Blood Culture - Final
Blood/Venous Coagulase neg. staphylococcus
Additional testing on request
Gram Stain - Final
02/26/24 20:57 Blood Culture - Final
Blood/Venous No Growth - Final Report
02/26/24 16:26 Blood Culture - Final
Blood/Venous No Growth - Final Report
02/26/24 20:07 Salmonella/Shigella Culture - Final
Feces/Stool No Salmonella, Shigella, Aeromonas or Plesiomonas species
isolated.
Campylobacter Culture - Final
No Campylobacter species isolated.
Shiga Toxin Test - Final
No E. coli Shiga Toxin 1 or 2 detected.
Stool Leukocytes - Final
02/26/24 20:07 Cryptosporidium/Giardia - Final
Feces/Stool Negative for Cryptosporidium and/or Giardia Lamblia
antigens.
C. difficile GDH Antigen & Toxins - Final
Negative for toxigenic C.difficile
- Final
Negative for Norovirus GI and GII.
02/26/24 CT a/p with IV contrast: Subcentimeter low-attenuation right renal lesions too small to characterize. Markedly limited evaluation of intestinal tract without oral contrast with findings at suggestive of diffuse thickening of the wall of
virtually the entire colon such as pancolitis. No intestinal obstruction, free air, colonic pneumatosis or gross abnormal focal fluid collection.
[2024-03-11 15:00] VITALS: BP 96/64
[2024-03-11 23:36] VITALS: BP 113/67
[2024-03-12] MEDS: ZOSYN 50 IV ×4 (02:09→20:05)
[2024-03-12] MEDS: SOLU-MEDROL PF 40 MG IV ×2 (03:00→17:01)
[2024-03-12 06:41] LABS: INR 1.15; PT 14.7 Sec (11.4-14.6)
[2024-03-12 06:42] LABS: APTT 30.8 Sec (23.4-35.0)
[2024-03-12 06:47] LABS: Hematocrit 23.7 % (39.0-52.0); Hemoglobin 7.6 g/dL (13.0-18.0); Mean Corp Hgb Conc. 32.1 g/dL (33.0-37.0); Mean Corpuscular Hgb 27.5 pg (27.0-31.0); Mean Corpuscular Volume 85.9 fL (80.0-94.0); Platelet Count 476 10^3/uL (130-400); Red Blood Cell Count 2.76 10^6/uL (4.70-6.10); Red Cell Dist. Width 15.3 % (11.5-14.5); White Blood Cell Count 6.7 10^3/uL (4.8-10.8)
[2024-03-12 07:10] LABS: ALT (SGPT) 60 U/L (0-50); AST (SGOT) 21 U/L (17-59); Albumin 2.3 g/dl (3.5-5.0); Alkaline Phosphatase 129 U/L (38-126); Blood Urea Nitrogen 8 mg/dl (9-20); Calcium 8.2 mg/dl (8.4-10.2); Carbon Dioxide 33 mmol/L (22-30); Chloride 98 mmol/L (98-107); Estimated Creatinine Clearance > 125 ml/min; Glucose 132 mg/dl (70-99); Sodium 132 mmol/L (135-145); Total Bilirubin 0.3 mg/dl (0.2-1.3); Total Protein 5.1 g/dl (6.3-8.2); eGFR > 60.00
[2024-03-12 07:29] LABS: % Basophils 0.5 % (0-2); % Immature Granulocytes 1.1 % (0-0.5); % Lymphocytes 10.2 % (20.5-51.1); % Monocytes 6.3 % (1.7-9.3); % Neutrophils 81.9 % (42.2-75.2); Absolute Immature Granulocytes 0.1 10^3/uL (0-0.05); Absolute Lymphocytes 0.7 10^3/uL (1.2-3.4); Absolute Monocytes 0.4 10^3/uL (0.1-0.6); Absolute Neutrophils 5.5 10^3/uL (1.4-6.5); Nucleated Red Blood Cells % 0 % (-)
[2024-03-12] MEDS: PENTASA 1000 MG PO ×4 (08:01→21:54)
[2024-03-12] MEDS: DESENEX/MITRAZOL/ZEASORB TOPICAL ×2 (08:01→20:16)
[2024-03-12] MEDS: VISBIOME 2 CAP PO (08:01)
[2024-03-12] MEDS: PROTONIX 40 MG PO (08:02)
[2024-03-12 08:27] VITALS: BP 107/62
--- NOTE | 2024-03-12 10:04 | W.PN.GI.CBS2 ---
Addendum entered and electronically signed by Home Loyola MD 03/12/24 13:54:
I saw and evaluated the patient. I reviewed the resident�s note and agree with findings and plan as documented in the resident�s note.
Pt feels better. Less volume of diarrhea, no bleeding, no pain
ABD soft NT
REC:
Seems to be responding to IFX and steroids
CRP peaked and downtrending now.
Cont IV steroids another day
Diet advanced to regular
If doing well, convert to oral steroids
Will need GI f/u to set up remicade outpt. He wishes to f/u closer to home at [place], as is too far away
Will need to arrange quickly to get remicade at week 2. We can send records to new GI
Original Note:
Today's Communication / Plan
-
Patient is clinically better. No bloody stools. Repeat CRP shows downtrending. Hgb is stable. No leukocytosis/ fever. b/c is negative.
-Seems to be improving s/p remicade 10mg/kg day 6
-Cont IV solumedrol
-Currently NPO for possible surgery- May advance to diet to [id number] if no surgery today
Assessment / Plan
-
Summary: 33yo with [facility]x substance abuse from [facility], renal calculus with onset of rectal bleeding for several weeks after tooth infection with abx/ NSAID use. On admission noted with anemia with iron deficiency with
thrombocytosis with elevated CRP, leukocytosis with bandemia/fever and electrolyte imbalance and CT concern for pancolitis. + wt loss 16 lbs since onset.
03/02/24 COLON- Severe pancolitis (congestion, erythema, granular, ulcerated) bx moderate acute/chronic inflammation, negative CMV
Impression:
-severe Ulcerative pancolitis with continued rectal bleeding and marked elevated fecal gemma. Remicade 10mg/kg on 03/06
-anemia with iron deficiency
-elevated CRP 83.5
-hypoalbuminemia 1.1
-tooth infection with abx/NSAID use at onset of diarrhea
-hx substance abuse with neg tox screen on admission
-hx renal stones/renal lesion on imaging
Subjective
Subjective
Date of Service: March 12, 2024
Patients feels good in general. He states has not been feeling pain for the past couple days. Does not report any fevers/chills overnight. Had 3 BMs overnight which was not-bloody.
Objective
Data Reviewed
Laboratory Data:
Laboratory Results
03/12/24 06:13
03/12/24 06:13
Laboratory Results
PT 14.7 Sec (11.4-14.6) H 03/12/24 06:13
INR 1.15 03/12/24 06:13
APTT 30.8 Sec (23.4-35.0) 03/12/24 06:13
Phosphorus 3.3 mg/dl (2.5-4.5) 03/08/24 06:37
Magnesium 2.0 mg/dl (1.6-2.3) 03/08/24 06:37
Total Bilirubin 0.3 mg/dl (0.2-1.3) 03/12/24 06:13
AST 21 U/L (17-59) 03/12/24 06:13
ALT 60 U/L (0-50) H 03/12/24 06:13
Alkaline Phosphatase 129 U/L (38-126) H 03/12/24 06:13
Lipase 16 U/L (23-300) L 02/26/24 15:16
Vital Signs and I&O:
Vital Signs
Temp Pulse Resp BP Pulse Ox
98.7 F 80 17 107/62 98
03/12/24 08:27 03/12/24 08:27 03/12/24 08:27 03/12/24 08:27 03/12/24 08:27
I&O
03/11/24 03/12/24 03/13/24
06:59 06:59 06:59
Intake Total 900 / 900
Output Total 675 / 675 1100 / 1100
Balance -675 / -675 -200 / -200
Physical Exam
Physical Exam
HEENT: Anicteric
Cardiology: Normal Sinus Rhythm, S1 and S2
Pulmonary: Clear
GI: Soft, Non Distended and Non Tender
Extremities: No Edema
--- NOTE | 2024-03-12 11:04 | W.PN.HOSP.TC ---
Today's Communication/Plan
-
continue current mgmt - diarrhea improving
Assessment / Plan
Assessment / Plan
33yo M with no significant medical history except of drug abuse brought from [facility] (was incarcerated for 3 months) with persistent abd pain, bright red blood in stool, diarrhea, lack of appetite for 3 weeks. 1 unit PRBC
given on 02/26/24. Neg stool Cx so Id stopped Abx. colonoscopy on 03/02/24 showed UC. Hyponatremia improved on hydration. Started on steroids and Ramicade. ColorectalSx involved as inflammation did not subside on steroids. With worsening fevers and
newly elevated procalcitonin - started back on Zosyn on 03/10/24
AP:
#Pancolitis (infectious vs inflammatory)
#Lower GIB with acute blood loss anemia with NORBERTO
calprotectin significantly elevated
Multiple WBC in the stool
Cryptosporidia, Giardia and C.diff neg
Two large bore IV and follow serial Hgb, transfuse if further drop by 2.0 or more or if Hgb <8
PPI
CLD on admission and GI for further mgmt: colonoscopy on 03/02/24 showed UC, started on steroids and Remicade (GI communicated to [facility] for further injections)
ColorectalSx follows - might need surgical intervention
GI for furhter mgmt: plan for possible Remicade on day 5 after the first dose
Repeated CT abd on 03/10/24 showed persistent pancolitis
#Worsening fevers on 03/10/24
Procal elevated
BCx pending
Chest XR neg
Start empiric Zosyn with persistent pancolitis
#R penal lesion
possible cyst
US Renal
#Coag neg staph in one set of Bcx, r/o bacteremia
repeated Bcx neg, suspect contamination. ID consult: confirmed that no need to treat
#Hyponatremia
Most likely hypovolemic
IVF PRN
#Leukocytosis
#Thrombocytosis
Most likely 2/2 IBD
follow CBC
#Hypokalemia
2/2 diarrhea
replete and follow potassium
DVT ppx SCDs
Full code
I have spent at least 56 min reviewing chart, test results, communication with consultants and direct patient care
Anticipated Discharge: > 48 hours
Subjective/Interval History
-
Date of Service: March 12, 2024
Objective Data
-
Labs:
Laboratory Results
03/12/24
06:13
WBC 6.7
Hgb 7.6 L
Hct 23.7 L
Plt Count 476 H D
PT 14.7 H
INR 1.15
APTT 30.8
Sodium 132 L
Potassium 4.0
Chloride 98
Carbon Dioxide 33 H
BUN 8 L
Creatinine 0.6 L
Glucose 132 H
Calcium 8.2 L
Total Bilirubin 0.3
AST 21
ALT 60 H
Alkaline Phosphatase 129 H
Vital Signs:
Vital Signs
Temp Pulse Resp BP Pulse Ox
98.7 F 80 17 107/62 98
03/12/24 08:27 03/12/24 08:27 03/12/24 08:27 03/12/24 08:27 03/12/24 08:27
I&O
03/11/24 03/12/24 03/13/24
06:59 06:59 06:59
Intake Total 900 / 900
Output Total 675 / 675 1100 / 1100
Balance -675 / -675 -200 / -200
Review of Systems
-
History Source: Patient
All other systems: Reviewed and negative
Physical Exam
-
General: No Apparent Distress
HEENT: Normocephalic and Atraumatic
Respiratory: Clear to Auscultation
Cardiac: Regular Rhythm
GI: Soft, Nontender and Nondistended
Skin: Warm
Neuro: Awake, Alert, Oriented and AO x 3
Psych: Calm
--- NOTE | 2024-03-12 12:58 | W.PN.CRS1 ---
Today's Communication / Plan
-
holding off on surgery
regular diet
Assessment/Plan
-
33-year-old incarcerated male, [facility] of drug abuse, who presents with 1 month of bloody diarrhea, about 10-12 episodes per day, who was brought to the ER due to persistent symptoms; seen by GI and workup so far is concerning for ulcerative colitis
(infectious workup unrevealing; CT on 02/25 showed pancolitis, but difficult study due to no enteric contrast; colonoscopy on 03/02 showed severe sutton colitis); patient started on steroids and was given a Remicade dose on 03/06
Afebrile over 24 hours, HR improved, normotensive
WBC normalized
�Severe pancolitis, likely ulcerative colitis
�Elevated inflammatory markers, infectious workup negative
�Appreciate GI: Continue steroids and Remicade
�Albumin 2.1; prealbumin 18.1; appreciate nutrition consult
- Holding off on surgery today given improvement.
- Restart a regular diet.
�Appreciate hospitalist
Subjective Data
Subjective Data
Date of Service: March 12, 2024
Patient states he feels improved. He has hunger pain. He had seven bowel movements overnight with no bleeding. He denies abdominal pain. He has no nausea or vomiting.
Objective Data
-
Vital Signs
Temp Pulse Resp BP Pulse Ox
98.7 F 80 17 107/62 98
03/12/24 08:27 03/12/24 08:27 03/12/24 08:27 03/12/24 08:27 03/12/24 08:27
Intake & Output
03/11/24 03/12/24 03/13/24
06:59 06:59 06:59
Intake Total 900 / 900
Output Total 675 / 675 1100 / 1100
Balance -675 / -675 -200 / -200
Intake:
Oral fluids 900 / 900
Output:
Urine, Voided 675 / 675 1100 / 1100
Lab Results
03/12/24 06:13
03/12/24 06:13
Physical Exam
-
General: No Acute Distress
Abdomen: Soft, Non Distended and Non Tender
Skin: Warm and Dry
--- NOTE | 2024-03-12 15:09 | W.PN.ID1 ---
Date of Service
Date of Service: March 12, 2024
Today's Communication
Continue Zosyn for today.
Assessment / Plan
# Bloody diarrhea x >4 weeks
# Fever
- improved but returned.
- again improved past 36
# Leukocytosis - resolved
# Blood loss anemia
- Given chronicity of diarrhea, less likely infectious.
- Stool many wbc, C. dif neg, O+P neg, Norovirus neg, Stool cx neg.
- Suspect IBD.
Currently day #3 Zosyn therapy.
If remains afebrile, will further narrow or discontinue antibiotics altogether in the next 24 hours.
# Substance abuse
- HIV neg, HCV neg.
Chief Complaint
-: Fever and Other (Bloody diarrhea)
Subjective / Review of Systems
Review of Systems: No Fever and No Chills
Vital Signs / Physical Exam
Vital Signs
Vital Signs
Temp Pulse Resp BP Pulse Ox
98.7 F 80 17 107/62 98
03/12/24 08:27 03/12/24 08:27 03/12/24 08:27 03/12/24 08:27 03/12/24 08:27
Physical Exam
Constitutional: No Acute Distress, Comfortable and Non-toxic
Eyes: No Conjunctival Hemorrhage and Sclera Anicteric
Cardiovascular: S1/S2; Negative S3/S4 or Murmur
Pulmonary: Non Labored
Gastrointestinal: Soft, Non Tender, Non Distended, Normal Bowel Sounds, No Rebound and No Guarding
Skin: Warm and Dry; Negative Rash or Jaundice
Neurological: Awake and Alert
Psychological: Calm
Objective Data
Lab Data
Lab Results
03/12/24 06:13
03/12/24 06:13
PT 14.7 Sec (11.4-14.6) H 03/12/24 06:13
INR 1.15 03/12/24 06:13
APTT 30.8 Sec (23.4-35.0) 03/12/24 06:13
Estimated Creat Clear > 125 ml/min 03/12/24 06:13
Lactic Acid 1.4 mmol/L (0.7-2.0) 02/26/24 21:46
Total Bilirubin 0.3 mg/dl (0.2-1.3) 03/12/24 06:13
AST 21 U/L (17-59) 03/12/24 06:13
ALT 60 U/L (0-50) H 03/12/24 06:13
Alkaline Phosphatase 129 U/L (38-126) H 03/12/24 06:13
C-Reactive Protein 136.30 mg/L (0.0-10.00) H 03/12/24 06:13
Most recent labs reviewed.
Micro Results:
03/10/24 16:40 Blood Culture - Preliminary
Blood/Venous No Growth in 24 hours- Final report to follow
03/10/24 16:31 Blood Culture - Preliminary
Blood/Venous No Growth in 24 hours- Final report to follow
02/26/24 16:26 Blood Culture - Final
Blood/Venous Coagulase neg. staphylococcus
Additional testing on request
Gram Stain - Final
02/26/24 20:57 Blood Culture - Final
Blood/Venous No Growth - Final Report
02/26/24 16:26 Blood Culture - Final
Blood/Venous No Growth - Final Report
02/26/24 20:07 Salmonella/Shigella Culture - Final
Feces/Stool No Salmonella, Shigella, Aeromonas or Plesiomonas species
isolated.
Campylobacter Culture - Final
No Campylobacter species isolated.
Shiga Toxin Test - Final
No E. coli Shiga Toxin 1 or 2 detected.
Stool Leukocytes - Final
02/26/24 20:07 Cryptosporidium/Giardia - Final
Feces/Stool Negative for Cryptosporidium and/or Giardia Lamblia
antigens.
C. difficile GDH Antigen & Toxins - Final
Negative for toxigenic C.difficile
- Final
Negative for Norovirus GI and GII.
02/26/24 CT a/p with IV contrast: Subcentimeter low-attenuation right renal lesions too small to characterize. Markedly limited evaluation of intestinal tract without oral contrast with findings at suggestive of diffuse thickening of the wall of
virtually the entire colon such as pancolitis. No intestinal obstruction, free air, colonic pneumatosis or gross abnormal focal fluid collection.
[2024-03-12 15:36] VITALS: BP 110/65
[2024-03-12 23:10] VITALS: BP 105/56
[2024-03-13] MEDS: ZOSYN 50 IV ×4 (01:57→19:51)
[2024-03-13] MEDS: SOLU-MEDROL PF 40 MG IV (04:18)
[2024-03-13 07:54] VITALS: BP 110/67
--- NOTE | 2024-03-13 08:56 | W.PN.GI.CBS2 ---
Addendum entered and electronically signed by Ciarra Lopez MD 03/13/24 11:22:
I saw and evaluated the patient. I reviewed the resident�s note and agree with findings and plan as documented in the resident�s note.
Pt doing better. stool forming, eating
abd: soft, nontender bs+
impression:
Ulcerative colitis
Plan:
convert steroids to po
diet
Pt agreeable to remicade infusion at office
Original Note:
Today's Communication / Plan
-
Seems to be responding to mesalamine and steroids.
Is tolerating diet well.
Given clinical improvement, may convert to oral steroids today.
Can D/C Zosyn
Patient has decided to follow-up with our GI office. We will set up appt for second dose of remicade as outpt.
Assessment / Plan
-
Summary: 33yo with hx substance abuse from [facility], renal calculus with onset of rectal bleeding for several weeks after tooth infection with abx/ NSAID use. On admission noted with anemia with iron deficiency with
thrombocytosis with elevated CRP, leukocytosis with bandemia/fever and electrolyte imbalance and CT concern for pancolitis. + wt loss 16 lbs since onset.
03/02/24 COLON- Severe pancolitis (congestion, erythema, granular, ulcerated) bx moderate acute/chronic inflammation, negative CMV
Impression:
-severe Ulcerative pancolitis with continued rectal bleeding and marked elevated fecal gemma. Remicade 10mg/kg on 03/06
-anemia with iron deficiency
-elevated CRP
-hypoalbuminemia 1.1 on admission
-tooth infection with abx/NSAID use at onset of diarrhea
-hx substance abuse with neg tox screen on admission
-hx renal stones/renal lesion on imaging
Subjective
Subjective
Date of Service: March 13, 2024
Patient's bowel movement are improving. Only 2 bowel movements since yesterday 7 PM which were nonbloody. Denies any abdominal pain. No fevers overnight
Objective
Data Reviewed
Laboratory Data:
Laboratory Results
PT 14.7 Sec (11.4-14.6) H 03/12/24 06:13
INR 1.15 03/12/24 06:13
APTT 30.8 Sec (23.4-35.0) 03/12/24 06:13
Phosphorus 3.3 mg/dl (2.5-4.5) 03/08/24 06:37
Magnesium 2.0 mg/dl (1.6-2.3) 03/08/24 06:37
Total Bilirubin 0.3 mg/dl (0.2-1.3) 03/12/24 06:13
AST 21 U/L (17-59) 03/12/24 06:13
ALT 60 U/L (0-50) H 03/12/24 06:13
Alkaline Phosphatase 129 U/L (38-126) H 03/12/24 06:13
Lipase 16 U/L (23-300) L 02/26/24 15:16
Vital Signs and I&O:
Vital Signs
Temp Pulse Resp BP Pulse Ox
97.7 F 89 16 110/67 96
03/13/24 07:54 03/13/24 07:54 03/13/24 07:54 03/13/24 07:54 03/13/24 07:54
I&O
03/12/24 03/13/24 03/14/24
06:59 06:59 06:59
Intake Total 900 / 900 1560 / 1560
Output Total 1100 / 1100
Balance -200 / -200 1560 / 1560
Physical Exam
Physical Exam
HEENT: Anicteric and Moist mucous membranes
Cardiology: Normal Sinus Rhythm, S1 and S2
Pulmonary: Clear
GI: Soft, Non Distended and Non Tender
[2024-03-13 09:02] LABS: Hemoglobin 7.4 g/dL (13.0-18.0); Mean Corp Hgb Conc. 32.2 g/dL (33.0-37.0); Mean Corpuscular Hgb 28.4 pg (27.0-31.0); Mean Corpuscular Volume 88.1 fL (80.0-94.0); Platelet Count 440 10^3/uL (130-400); Red Blood Cell Count 2.61 10^6/uL (4.70-6.10); White Blood Cell Count 7.9 10^3/uL (4.8-10.8)
[2024-03-13 09:20] LABS: ALT (SGPT) 90 U/L (0-50); AST (SGOT) 52 U/L (17-59); Albumin 2.3 g/dl (3.5-5.0); Alkaline Phosphatase 187 U/L (38-126); Blood Urea Nitrogen 8 mg/dl (9-20); Calcium 7.9 mg/dl (8.4-10.2); Carbon Dioxide 31 mmol/L (22-30); Chloride 98 mmol/L (98-107); Estimated Creatinine Clearance > 125 ml/min; Glucose 141 mg/dl (70-99); Potassium 4.3 mmol/L (3.5-5.1); Sodium 136 mmol/L (135-145); Total Bilirubin 0.2 mg/dl (0.2-1.3); eGFR > 60.00
--- NOTE | 2024-03-13 09:27 | W.PN.HOSP.TC ---
Today's Communication/Plan
-
MRI abd
follow Hgb
steroids mgmt as per GI, if will tolerate oral - might be for d/c in 24-48h
Assessment / Plan
Assessment / Plan
33yo M with no significant medical history except of drug abuse brought [facility] (was incarcerated for 3 months) with persistent abd pain, bright red blood in stool, diarrhea, lack of appetite for 3 weeks. 1 unit PRBC
given on 02/26/24. Neg stool Cx so Id stopped Abx. colonoscopy on 03/02/24 showed UC. Hyponatremia improved on hydration. Started on steroids and Ramicade. ColorectalSx involved as inflammation did not subside on steroids. With worsening fevers and
newly elevated procalcitonin - started back on Zosyn on 03/10/24
AP:
#Pancolitis (infectious vs inflammatory)
#Lower GIB with acute blood loss anemia with NORBERTO
calprotectin significantly elevated
Multiple WBC in the stool
Cryptosporidia, Giardia and C.diff neg
Two large bore IV and follow serial Hgb, transfuse if further drop by 2.0 or more or if Hgb <8
PPI
CLD on admission and GI for further mgmt: colonoscopy on 03/02/24 showed UC, started on steroids and Remicade ([facility])
ColorectalSx follows - might need surgical intervention
GI for furhter mgmt: plan for possible Remicade on day 5 after the first dose
Repeated CT abd on 03/10/24 showed persistent pancolitis
#Worsening fevers on 03/10/24
Procal elevated
BCx NTD
Chest XR neg
Started empiric Zosyn with persistent pancolitis - further mgmt as per ID consult
#R penal lesion
possible cyst
US Renal: Complex cystic right renal mass
MRI abd pending
#Coag neg staph in one set of Bcx, r/o bacteremia
repeated Bcx neg, suspect contamination. ID consult: confirmed that no need to treat
#Hyponatremia
Most likely hypovolemic
IVF PRN
#Leukocytosis
#Thrombocytosis
Most likely 2/2 IBD
follow CBC
#Hypokalemia
2/2 diarrhea
replete and follow potassium
DVT ppx SCDs
Full code
I have spent at least 56 min reviewing chart, test results, communication with consultants and direct patient care
Anticipated Discharge: 24 - 48 hours
Subjective/Interval History
-
Date of Service: March 13, 2024
Objective Data
-
Labs:
Laboratory Results
03/13/24
08:06
WBC 7.9
Hgb 7.4 L
Hct 23.0 L
Plt Count 440 H
Sodium 136
Potassium 4.3
Chloride 98
Carbon Dioxide 31 H
BUN 8 L
Creatinine 0.5 L
Glucose 141 H
Calcium 7.9 L
Total Bilirubin 0.2
AST 52
ALT 90 H
Alkaline Phosphatase 187 H
Vital Signs:
Vital Signs
Temp Pulse Resp BP Pulse Ox
97.7 F 89 16 110/67 96
03/13/24 07:54 03/13/24 07:54 03/13/24 07:54 03/13/24 07:54 03/13/24 07:54
I&O
03/12/24 03/13/24 03/14/24
06:59 06:59 06:59
Intake Total 900 / 900 1560 / 1560
Output Total 1100 / 1100
Balance -200 / -200 1560 / 1560
Review of Systems
-
All other systems: Reviewed and negative
Constitutional: Reports No Symptoms
Physical Exam
-
General: No Apparent Distress
Cardiac: Regular Rhythm
GI: Soft, Nontender and Nondistended
Musculoskeletal: No Clubbing, No Cyanosis and No Edema
Neuro: Awake, Alert and Oriented
Psych: Calm
[2024-03-13 09:29] LABS: % Basophils 0.3 % (0-2); % Eosinophils 0.1 % (0-6); % Immature Granulocytes 1.5 % (0-0.5); % Lymphocytes 9.1 % (20.5-51.1); % Monocytes 5.8 % (1.7-9.3); % Neutrophils 83.2 % (42.2-75.2); Absolute Immature Granulocytes 0.1 10^3/uL (0-0.05); Absolute Lymphocytes 0.7 10^3/uL (1.2-3.4); Absolute Monocytes 0.5 10^3/uL (0.1-0.6); Absolute Neutrophils 6.6 10^3/uL (1.4-6.5); Nucleated Red Blood Cells % 0 % (-)
[2024-03-13] MEDS: DESENEX/MITRAZOL/ZEASORB TOPICAL ×2 (09:44→19:50)
[2024-03-13] MEDS: PENTASA 1000 MG PO ×4 (09:45→22:07)
[2024-03-13] MEDS: VISBIOME 2 CAP PO (09:46)
[2024-03-13] MEDS: PROTONIX 40 MG PO (09:46)
--- NOTE | 2024-03-13 10:30 | PN.CDI ---
Addendum entered and electronically signed by Terry Hood MD 03/13/24 13:40:
no sepsis
Original Note:
CDI
- -
CDI:
Physician Documentation Request
Admit Date: 02/26/24 18:50
Dear Doctor Sana,
Clinical Indicators:
Patient admitted with Pancolitis (infectious vs inflammatory).
03/10 PN, 'septic w/u...ColorectalSx involved as inflammation did not subside on steroids. With persistent inflammation - careful monitoring for early signs of sepsis'
03/11 PN, 'With worsening fevers and newly elevated procalcitonin - started back on Zosyn on 03/10/24'
Temp trend:
03/09/24
23:13 03/10/24
03:21 03/10/24
15:00
Temp 101.2 F H 101.8 F H 101.4 F H
HR trend:
03/09/24
07:30 03/09/24
12:00 03/09/24
16:00
Pulse 94 110 107
03/09/24
23:13 03/10/24
07:00 03/10/24
15:00
Pulse 118 118 114
Please clarify the following:
Sepsis is a likely, suspected, probable diagnosis
Sepsis was ruled out
Other, please specify
Use of terms such as suspected, likely, concern for, or probable (associated with a specific diagnosis that is being evaluated, monitored, or treated as if it exists) are acceptable and can be coded in the inpatient setting, when documented at the
time of discharge.
Thank you,
Mary Marrero RN BSN
CDI Specialist
available via tiger text
Please use your independent medical judgment in providing your response.
--- NOTE | 2024-03-13 10:36 | W.PN.CRS1 ---
Today's Communication / Plan
-
No plans for OR
Will sign off please contact if further surgical issues arise
Assessment/Plan
-
33-year-old incarcerated male, H of drug abuse, who presents with 1 month of bloody diarrhea, about 10-12 episodes per day, who was brought to the ER due to persistent symptoms; seen by GI and workup so far is concerning for ulcerative colitis
(infectious workup unrevealing; CT on 02/25 showed pancolitis, but difficult study due to no enteric contrast; colonoscopy on 03/02 showed severe sutton colitis); patient started on steroids and was given a Remicade dose on 03/06
Afebrile over 24 hours, HR improved, normotensive
WBC normalized
�Severe pancolitis, likely ulcerative colitis
�Elevated inflammatory markers, infectious workup negative
�Appreciate GI: Continue steroids and Remicade
�Albumin 2.1; prealbumin 18.1; appreciate nutrition consult
- Holding off on surgery today given improvement.
-Continue a regular diet.
�Appreciate hospitalist
-Will sign off, please contact us if further surgical issues arise.
Subjective Data
Subjective Data
Date of Service: March 13, 2024
Patient states he feels well. He is having 4-5 bowel movements a day which is slowing down. He has not seen any blood in his stool. He is tolerating a regular diet.
Objective Data
-
Vital Signs
Temp Pulse Resp BP Pulse Ox
97.7 F 89 16 110/67 96
03/13/24 07:54 03/13/24 07:54 03/13/24 07:54 03/13/24 07:54 03/13/24 07:54
Intake & Output
03/12/24 03/13/24 03/14/24
06:59 06:59 06:59
Intake Total 900 / 900 1560 / 1560
Output Total 1100 / 1100
Balance -200 / -200 1560 / 1560
Intake:
Oral fluids 900 / 900 1560 / 1560
Output:
Urine, Voided 1100 / 1100
Other:
Number of approximated LARGE 2
amounts of urine
Number of unmeasured liquid
stools
Rectum 3
Lab Results
03/13/24 08:06
03/13/24 08:06
Physical Exam
-
General: No Acute Distress and AOx3
Abdomen: Soft, Non Distended and Non Tender
[2024-03-13] MEDS: DELTASONE 40 MG PO (12:15)
--- NOTE | 2024-03-13 13:55 | W.PN.ID1 ---
Date of Service
Date of Service: March 13, 2024
Today's Communication
D/C abx.
Assessment / Plan
# Bloody diarrhea x >4 weeks
- improved.
# Fever
- improved
# Leukocytosis - resolved
# Blood loss anemia
- Given chronicity of diarrhea, less likely infectious.
- Stool many wbc, C. dif neg, O+P neg, Norovirus neg, Stool cx neg.
- Suspect IBD.
Patient remains afebrile
Discontinue further antibiotics and observe.
# Substance abuse
- HIV neg, HCV neg.
����������������������������������������������������������
Chief Complaint
-: Fever and Other (Bloody diarrhea)
Subjective / Review of Systems
Review of Systems: No Fever and No Chills
Vital Signs / Physical Exam
Vital Signs
Vital Signs
Temp Pulse Resp BP Pulse Ox
97.7 F 89 16 110/67 96
03/13/24 07:54 03/13/24 07:54 03/13/24 07:54 03/13/24 07:54 03/13/24 07:54
Physical Exam
Constitutional: No Acute Distress, Comfortable and Non-toxic
Eyes: No Conjunctival Hemorrhage and Sclera Anicteric
Cardiovascular: S1/S2; Negative S3/S4 or Murmur
Pulmonary: Non Labored
Gastrointestinal: Soft, Non Tender, Non Distended, Normal Bowel Sounds, No Rebound and No Guarding
Skin: Warm and Dry; Negative Rash or Jaundice
Neurological: Awake and Alert
Psychological: Calm
Objective Data
Lab Data
Lab Results
03/13/24 08:06
03/13/24 08:06
PT 14.7 Sec (11.4-14.6) H 03/12/24 06:13
INR 1.15 03/12/24 06:13
APTT 30.8 Sec (23.4-35.0) 03/12/24 06:13
Estimated Creat Clear > 125 ml/min 03/13/24 08:06
Lactic Acid 1.4 mmol/L (0.7-2.0) 02/26/24 21:46
Total Bilirubin 0.2 mg/dl (0.2-1.3) 03/13/24 08:06
AST 52 U/L (17-59) 03/13/24 08:06
ALT 90 U/L (0-50) H 03/13/24 08:06
Alkaline Phosphatase 187 U/L (38-126) H 03/13/24 08:06
C-Reactive Protein 136.30 mg/L (0.0-10.00) H 03/12/24 06:13
Most recent labs reviewed.
Micro Results:
03/10/24 16:40 Blood Culture - Preliminary
Blood/Venous No Growth in 48 hours- Final report to follow
03/10/24 16:31 Blood Culture - Preliminary
Blood/Venous No Growth in 48 hours- Final report to follow
02/26/24 16:26 Blood Culture - Final
Blood/Venous Coagulase neg. staphylococcus
Additional testing on request
Gram Stain - Final
02/26/24 20:57 Blood Culture - Final
Blood/Venous No Growth - Final Report
02/26/24 16:26 Blood Culture - Final
Blood/Venous No Growth - Final Report
02/26/24 20:07 Salmonella/Shigella Culture - Final
Feces/Stool No Salmonella, Shigella, Aeromonas or Plesiomonas species
isolated.
Campylobacter Culture - Final
No Campylobacter species isolated.
Shiga Toxin Test - Final
No E. coli Shiga Toxin 1 or 2 detected.
Stool Leukocytes - Final
02/26/24 20:07 Cryptosporidium/Giardia - Final
Feces/Stool Negative for Cryptosporidium and/or Giardia Lamblia
antigens.
C. difficile GDH Antigen & Toxins - Final
Negative for toxigenic C.difficile
- Final
Negative for Norovirus GI and GII.
02/26/24 CT a/p with IV contrast: Subcentimeter low-attenuation right renal lesions too small to characterize. Markedly limited evaluation of intestinal tract without oral contrast with findings at suggestive of diffuse thickening of the wall of
virtually the entire colon such as pancolitis. No intestinal obstruction, free air, colonic pneumatosis or gross abnormal focal fluid collection.
--- NOTE | 2024-03-13 15:03 | CM ---
CM reviewed chart, patient off floor for MRI. CM will return to discuss all discharge planning needs with patient.
Plan; home with family when medically stable.
[2024-03-13 23:39] VITALS: BP 115/64
[2024-03-14] MEDS: ZOSYN 50 IV ×2 (02:45→08:59)
[2024-03-14 06:35] LABS: % Basophils 0.2 % (0-2); % Eosinophils 0.3 % (0-6); % Immature Granulocytes 2.5 % (0-0.5); Absolute Immature Granulocytes 0.2 10^3/uL (0-0.05); Absolute Lymphocytes 2.6 10^3/uL (1.2-3.4); Absolute Monocytes 1.1 10^3/uL (0.1-0.6); Hematocrit 23.2 % (39.0-52.0); Hemoglobin 7.5 g/dL (13.0-18.0); Mean Corp Hgb Conc. 32.3 g/dL (33.0-37.0); Mean Corpuscular Hgb 27.7 pg (27.0-31.0); Mean Corpuscular Volume 85.6 fL (80.0-94.0); Mean Platelet Volume 7.9 fL (7.4-10.4); Nucleated Red Blood Cells % 0.3 % (-); Platelet Count 471 10^3/uL (130-400); Red Blood Cell Count 2.71 10^6/uL (4.70-6.10); Red Cell Dist. Width 15.1 % (11.5-14.5); White Blood Cell Count 8.8 10^3/uL (4.8-10.8)
[2024-03-14 06:48] LABS: ALT (SGPT) 111 U/L (0-50); AST (SGOT) 46 U/L (17-59); Albumin 2.5 g/dl (3.5-5.0); Alkaline Phosphatase 167 U/L (38-126); Blood Urea Nitrogen 8 mg/dl (9-20); Calcium 8.5 mg/dl (8.4-10.2); Carbon Dioxide 30 mmol/L (22-30); Chloride 99 mmol/L (98-107); Estimated Creatinine Clearance > 125 ml/min; Glucose 96 mg/dl (70-99); Potassium 4.2 mmol/L (3.5-5.1); Sodium 136 mmol/L (135-145); Total Bilirubin 0.3 mg/dl (0.2-1.3); Total Protein 5.2 g/dl (6.3-8.2); eGFR > 60.00
[2024-03-14 07:39] VITALS: BP 121/75
[2024-03-14] MEDS: DELTASONE 40 MG PO (08:57)
[2024-03-14] MEDS: VISBIOME 2 CAP PO (08:58)
[2024-03-14] MEDS: DESENEX/MITRAZOL/ZEASORB TOPICAL (08:58)
[2024-03-14] MEDS: PENTASA 1000 MG PO ×2 (08:58→13:17)
[2024-03-14] MEDS: PROTONIX 40 MG PO (08:58)
--- NOTE | 2024-03-14 12:38 | W.PN.HOSP.TC ---
Today's Communication/Plan
-
dc
Assessment / Plan
Assessment / Plan
33yo M with no significant medical history except of drug abuse [facility] for [facility]) with persistent abd pain, bright red blood in stool, diarrhea, lack of appetite for 3 weeks. 1 unit PRBC
given on 02/26/24. Neg stool Cx so Id stopped Abx. colonoscopy on 03/02/24 showed UC. Hyponatremia improved on hydration. Started on steroids and Ramicade. ColorectalSx involved as inflammation did not subside on steroids. With worsening fevers and
newly elevated procalcitonin - started back on Zosyn on 03/10/24, that ID recommended not to continue. Improved stool consistency andf frequency. Switch to oral prednisone and tolerated diet well. Medically stable for d/c. WIll follow with GI as
outpatient for continued Remicade course.
AP:
#Pancolitis (infectious vs inflammatory)
#Lower GIB with acute blood loss anemia with NORBERTO
calprotectin significantly elevated
Multiple WBC in the stool
Cryptosporidia, Giardia and C.diff neg
Two large bore IV and follow serial Hgb, transfuse if further drop by 2.0 or more or if Hgb <8
PPI
CLD on admission and GI for further mgmt: colonoscopy on 03/02/24 showed UC, started on steroids and Remicade (GI communicated to [facility] for [facility])
ColorectalSx follows - might need surgical intervention
GI for furhter mgmt: plan for possible Remicade on day 5 after the first dose
Repeated CT abd on 03/10/24 showed persistent pancolitis
#Worsening fevers on 03/10/24
Procal elevated
BCx NTD
Chest XR neg
Started empiric Zosyn with persistent pancolitis - further mgmt as per ID consult
#R penal lesion
possible cyst
US Renal: Complex cystic right renal mass
MRI abd showed simple cyst - no further w/u advised
#Coag neg staph in one set of Bcx, r/o bacteremia
repeated Bcx neg, suspect contamination. ID consult: confirmed that no need to treat
#Hyponatremia
Most likely hypovolemic
IVF PRN
#Leukocytosis
#Thrombocytosis
Most likely 2/2 IBD
follow CBC
#Hypokalemia
2/2 diarrhea
replete and follow potassium
DVT ppx SCDs
Full code
I have spent at least 36 min reviewing chart, test results, communication with consultants and direct patient care
Anticipated Discharge: Today
Subjective/Interval History
-
Date of Service: March 14, 2024
Objective Data
-
Labs:
Laboratory Results
03/14/24
05:59
WBC 8.8
Hgb 7.5 L
Hct 23.2 L
Plt Count 471 H
Sodium 136
Potassium 4.2
Chloride 99
Carbon Dioxide 30
BUN 8 L
Creatinine 0.6 L
Glucose 96
Calcium 8.5
Total Bilirubin 0.3
AST 46
ALT 111 H
Alkaline Phosphatase 167 H
Vital Signs:
Vital Signs
Temp Pulse Resp BP Pulse Ox
97.8 F 82 16 121/75 99
03/14/24 07:39 03/14/24 07:39 03/14/24 07:39 03/14/24 07:39 03/14/24 07:39
I&O
03/13/24 03/14/24 03/15/24
06:59 06:59 06:59
Intake Total 1560 / 1560 1140 / 1140
Output Total 300 / 300
Balance 1560 / 1560 840 / 840
Review of Systems
-
History Source: Patient
All other systems: Reviewed and negative
Physical Exam
-
General: No Apparent Distress
Respiratory: Clear to Auscultation
GI: Soft, Nontender and Nondistended
Skin: Warm
Neuro: Awake, Alert, Oriented and AO x 3
--- NOTE | 2024-03-14 12:42 | W.DCSUMMARY ---
Discharge Summary
Discharge Data
Date of Admission: 02/26/24
Date of Discharge: 03/14/24
-
Pending Results: No
Hospital Course
33yo M with no significant medical history except of drug abuse brought from [facility] (was incarcerated for 3 months) with persistent abd pain, bright red blood in stool, diarrhea, lack of appetite for 3 weeks. 1 unit PRBC
given on 02/26/24. Neg stool Cx so Id stopped Abx. colonoscopy on 03/02/24 showed UC. Hyponatremia improved on hydration. Started on steroids and Ramicade. ColorectalSx involved as inflammation did not subside on steroids. With worsening fevers and
newly elevated procalcitonin - started back on Zosyn on 03/10/24, that ID recommended not to continue. Improved stool consistency andf frequency. Switch to oral prednisone and tolerated diet well. Medically stable for d/c. WIll follow with GI as
outpatient for continued Remicade course.
On the day of d/c - hgb stable, no blood seen by patient in the stool, no fever and no leukocytosis over 24h
I have spent 36min discharging the patient
AP:
#Pancolitis (infectious vs inflammatory)
#Lower GIB with acute blood loss anemia with NORBERTO
#Worsening fevers on 03/10/24
#R renal cyst
#Coag neg staph in one set of Bcx, r/o bacteremia
#Hyponatremia
#Leukocytosis
#Thrombocytosis
#Hypokalemia
Discharge Plan
-
Patient Disposition: Home (Routine Discharge)
Discharge Diagnosis/Procedures: Ulcerative Colitis
Diet: Regular
Activity: As tolerated
Driving Restrictions: As prior to admission
Referrals:
Uriel Short MD [Active] - in three to four weeks
Pina Serrano MD [Active] - in less than 1 week (Call to schedule Remicade injection)
Additional Discharge Medication Instructions: Dont stop Prednisone until told to do so by GI
Prescriptions:
New
Pentasa 250 mg Capsule, Extended Release
1,000 mg PO QID Qty: 320 1RF
prednisone 20 mg Tablet
40 mg PO DAILY Qty: 30 0RF
pantoprazole 40 mg Tablet,Delayed Release (Dr/Ec)
40 mg PO DAILY Qty: 30 0RF
Discontinued
loperamide 2 mg Capsule
2 mg PO BIDPRN PRN (Reason: diarrhea)
famotidine 20 mg Tablet
20 mg PO DAILY
hydrocortisone 1 % Cream
1 applic TOPICAL HS
Benefiber Sugar Free (dextrin) 1 gram Tablet,Chewable
1 tab PO BID
Discharge Orders:
Discharge Patient (As Directed); Ordered 03/14/24
Ordered By: Terry Hood
Discharge Date and Time
Print Language: UPPER SORBIAN
--- NOTE | 2024-03-14 13:13 | W.PN.GI.CBS2 ---
Today's Communication / Plan
-
po prednisone
Assessment / Plan
-
Summary: 33yo with hx substance abuse from [facility], renal calculus with onset of rectal bleeding for several weeks after tooth infection with abx/ NSAID use. On admission noted with anemia with iron deficiency with
thrombocytosis with elevated CRP, leukocytosis with bandemia/fever and electrolyte imbalance and CT concern for pancolitis. + wt loss 16 lbs since onset.
03/02/24 COLON- Severe pancolitis (congestion, erythema, granular, ulcerated) bx moderate acute/chronic inflammation, negative CMV
Impression:
UC with clinical improvement s/p remicade
ideally needs remicade q 2 weeks but pt w/o insurance
would send home on 40mg predisone with taper to start after 1 month to ensure he gets insurance and is on a treatment
pt will to work on insurance with social work and mother
he will call us to set up f/u if he hasn't already established care closer to home
Subjective
Subjective
Date of Service: March 14, 2024
Pt eating, no abd pain, stool formed
Objective
Data Reviewed
Laboratory Data:
Laboratory Results
03/14/24 05:59
03/14/24 05:59
Laboratory Results
PT 14.7 Sec (11.4-14.6) H 03/12/24 06:13
INR 1.15 03/12/24 06:13
APTT 30.8 Sec (23.4-35.0) 03/12/24 06:13
Phosphorus 3.3 mg/dl (2.5-4.5) 03/08/24 06:37
Magnesium 2.0 mg/dl (1.6-2.3) 03/08/24 06:37
Total Bilirubin 0.3 mg/dl (0.2-1.3) 03/14/24 05:59
AST 46 U/L (17-59) 03/14/24 05:59
ALT 111 U/L (0-50) H 03/14/24 05:59
Alkaline Phosphatase 167 U/L (38-126) H 03/14/24 05:59
Lipase 16 U/L (23-300) L 02/26/24 15:16
Vital Signs and I&O:
Vital Signs
Temp Pulse Resp BP Pulse Ox
97.8 F 82 16 121/75 99
03/14/24 07:39 03/14/24 07:39 03/14/24 07:39 03/14/24 07:39 03/14/24 07:39
I&O
03/13/24 03/14/24 03/15/24
06:59 06:59 06:59
Intake Total 1560 / 1560 1140 / 1140
Output Total 300 / 300
Balance 1560 / 1560 840 / 840
Physical Exam
Physical Exam
GI: Soft, Non Distended and Non Tender
== END 2024-03-14 14:08 | disposition home or self-care (01) | DRG 386 ==
LOC: 3 WEST ACU 18:50
PROVIDERS: Family Medicine; Internal Medicine Gastroenterology; Nurse Practitioner; Nurse Practitioner Family; Physician Assistant; Specialist; ADMITTING PHYSICIAN Internal Medicine; CONSULT PHYSICIAN Internal Medicine Gastroenterology; CONSULT PHYSICIAN Internal Medicine Infectious Disease; CONSULT PHYSICIAN Specialist; CONSULT PHYSICIAN Surgery; EMERGENCY PHYSICIAN Emergency Medicine
PROC: 30233N1 Transfusion of Nonautologous Red Blood Cells into Peripheral Vein, Percutaneous Approach (ICD-10-PCS; 2024-02-26)
PROC: 0DBM8ZX Excision of Descending Colon, Via Natural or Artificial Opening Endoscopic, Diagnostic (ICD-10-PCS; 2024-03-02)
PROC: 0DBN8ZX Excision of Sigmoid Colon, Via Natural or Artificial Opening Endoscopic, Diagnostic (ICD-10-PCS; 2024-03-02)
PROC: 0DBK8ZX Excision of Ascending Colon, Via Natural or Artificial Opening Endoscopic, Diagnostic (ICD-10-PCS; 2024-03-02)
PROC: 0DBH8ZX Excision of Cecum, Via Natural or Artificial Opening Endoscopic, Diagnostic (ICD-10-PCS; 2024-03-02)
PROC: 0DBP8ZX Excision of Rectum, Via Natural or Artificial Opening Endoscopic, Diagnostic (ICD-10-PCS; 2024-03-02)
PROC: 0DBL8ZX Excision of Transverse Colon, Via Natural or Artificial Opening Endoscopic, Diagnostic (ICD-10-PCS; 2024-03-02)
DX: K51.011 Ulcerative (chronic) pancolitis with rectal bleeding (principal); A09 Infectious gastroenteritis and colitis, unspecified; D62 Acute posthemorrhagic anemia; R78.81 Bacteremia; E87.1 Hypo-osmolality and hyponatremia; D50.9 Iron deficiency anemia, unspecified; N28.1 Cyst of kidney, acquired; D75.839 Thrombocytosis, unspecified; E87.6 Hypokalemia; F15.10 Other stimulant abuse, uncomplicated; F17.200 Nicotine dependence, unspecified, uncomplicated; E86.0 Dehydration; R00.0 Tachycardia, unspecified; E86.1 Hypovolemia; R94.31 Abnormal electrocardiogram [ECG] [EKG]; I95.9 Hypotension, unspecified; D72.825 Bandemia; E88.09 Other disorders of plasma-protein metabolism, not elsewhere classified; R13.10 Dysphagia, unspecified; R63.4 Abnormal weight loss; Z68.24 Body mass index [BMI] 24.0-24.9, adult; Z11.52 Encounter for screening for COVID-19; Z87.442 Personal history of urinary calculi
CPT/HCPCS: 88305; 71045; 74177; 74183; 76775; 80048; 80053; 80076; 80306; 81003; 82550; 82607; 82728; 82746; 83010; 83540; 83550; 83605; 83615; 83690; 83735; 83930; 83935; 83993; 84100; 84134; 84145; 84300; 84443; 85014; 85018; 85025; 85027; 85045; 85610; 85730; 86140; 86480; 86704; 86705; 86706; 86708; 86803; 86850; 86900; 86901; 86920; 87040; 87045; 87046; 87150; 87205; 87324; 87328; 87329; 87340; 87389; 87427; 87449; 87798; 87811; 88342; 89055; 93005; 96365; 96367; 96375; 99285; 99406; A9575; J1745; J2916; P9016; Q9967

== ENCOUNTER 2024-03-18 11:40 | Emergency (ER) | payer SELFPAY ==
[2024-03-18 12:02] VITALS: BP 92/63
--- NOTE | 2024-03-18 13:15 | CM ---
CM spoke with Mayra at [facility] and confirmed that patient is active with Medicaid; [employer] plan. CM confirmed that [facility] and [facility] are not in network. CM provided list of in network providers to patient and patient's
mother. THey will follow up.
CM updated ED MD.
--- NOTE | 2024-03-18 14:02 | ED.GENMED ---
History of Present Illness
General
Chief Complaint: Abdominal Symptoms
Source: patient
Exam Limitations: none
Time Seen by Provider: 03/18/24 12:22
Nursing documentation reviewed up to this point in time: agreed with
History of Present Illness
History of Present Illness:
Patient discharged from the hospital 4 days ago after receiving treatment for ulcerative colitis, currently on prednisone, presents to ED requesting assistance, as he has had difficult time arranging for an outpatient Remicade infusion. Denies
fever or chills. Denies abdominal pain. Denies nausea or vomiting. Patient has been eating normally since being discharged home. Patient states that he is still experiencing diarrhea, but not as severe. Patient reports having applied for
medical assistance, but is unsure if it has been approved yet or not.
Past History
Past History
ED Past Medical History: Other (Renal calculus)
ED Past Surgical History: None
Social History
Tobacco: Smoker
Alcohol: Occasional
Drug: Other (Substance abuse)
Personal: Single
Living: half-way
Review of Systems
Review of Systems
Allergies reviewed?: Yes
All Other Systems: ROS reviewed and negative except as documented in HPI and ROS
Constitutional: Reports no symptoms
EENT: Reports no symptoms
Respiratory: Reports no symptoms
Cardiac: Reports no symptoms
ABD/GI: Reports diarrhea; Denies abdominal pain, nausea or vomiting
Musculoskeletal: Reports no symptoms
Skin: Reports no symptoms
Neurological: Reports no symptoms
Phy Exam
Physical Exam
Physical Exam:
Physical Exam
General: no apparent distress, not acutely ill. afebrile. pale appearing
Head: nc/at. eomi
Neck: supple. no meningeal signs.
Heart: s1/s2 regular rate and rhythm, no murmur. equal radial pulses.
Lungs: no acute respiratory distress. clear bilaterally
Abdomen: normal bowel sounds. not tender.
Neuro: alert and oriented. no focal neurological deficits
Skin: no rash
Psychiatric: well kept. interactive and cooperative
Extremities: no edema. no calf tenderness.
Course
Orders/Labs/Results
Orders:
Orders
03/18/24 12:23
0.9% Sodium Chloride 1000 ml [Nss] 1,000 ml IV BOLUS
03/18/24 12:31
Case Management Consult ONCE
Case Management Consult: Discharge Planning
03/18/24 12:59
03/18/24 12:59
Vital Signs
Initial and Last Documented VS:
Initial Vital Signs
Temp Pulse Resp BP Pulse Ox
98.8 F 120 18 92/63 97
03/18/24 12:02 03/18/24 12:02 03/18/24 12:02 03/18/24 12:02 03/18/24 12:02
Last Documented Vital Signs
Temp Pulse Resp BP Pulse Ox
98.8 F 115 18 106/68 99
03/18/24 12:02 03/18/24 14:30 03/18/24 14:30 03/18/24 14:30 03/18/24 14:30
MDM/Problems Addressed
MDM/Problems Addressed:
Patient refused blood work and IV fluids during evaluation, as he feels improved upon discharge. Patient's medical assistance investigated by ED case management. Medical assistance has been approved. Unfortunately, [facility]
physician's office does not accept his insurance at this time. Patient given information for other facilities/GI office who may be of help to the patient. Patient is otherwise afebrile, and appears comfortable, and nontoxic-appearing, at time of
discharge, to the care of his family.
*Critical Care Note
Total Time (30-74mins, 75-104mins- exclusive of procedures): Not Applicable
ED Attending Note
-
Portions of this chart may have been created with voice recognition software.� Occasional wrong word or��sound alike� substitutions may have occurred due to the inherent limitations of voice recognition software.
Discharge Plan
Departure
Patient Disposition: Home (Routine Discharge)
Date of Disposition: 03/18/24
Time of Disposition: 14:07
Patient with high blood pressure during this ER visit?: No
Condition: Fair
Discharge Problem:
Ulcerative colitis
Instructions: Ulcerative colitis in adults
Prescriptions:
No Action
Pentasa 250 mg Capsule, Extended Release
1,000 mg PO QID Qty: 320 1RF
prednisone 20 mg Tablet
40 mg PO DAILY Qty: 30 0RF
pantoprazole 40 mg Tablet,Delayed Release (Dr/Ec)
40 mg PO DAILY Qty: 30 0RF
mesalamine 400 mg capsule (with del rel tablets)
1,000 mg PO QID 30 Days Qty: 300 0RF
Referrals:
NONE,* [Family Provider] -
Activity Restrictions/Additional Instructions:
As discussed, please continue to take already prescribed prednisone and make an arrangement for an outpatient Remicade infusion via the information provided for you at time of discharge. Please consider returning to nearest ED with any worsening
symptoms, i.e. fever/worsening pain/vomiting/inability to eat.
Interventions
Interventions:
*Risk Screen - Suicide Last Done: 03/18/24 12:16
*General Assessment Last Done: 03/18/24 12:16
*Neglect/Abuse Screening Last Done: 03/18/24 12:16
ED- Fall Risk Assessment Last Done: 03/18/24 12:16
*ED COVID-19 Vaccine History Last Done: 03/18/24 12:02
*Nursing Disposition Last Done: 03/18/24 14:32
ZM-[id number] Assessment Last Done: 03/18/24 12:16
Discharge Date and Time
Discharge Date/Time: 03/18/24 14:48
Print Language: LAO
[2024-03-18 14:30] VITALS: BP 106/68
== END 2024-03-18 14:48 | disposition home or self-care (01) ==
LOC: EMR 11:40
PROVIDERS: EMERGENCY PHYSICIAN Emergency Medicine
DX: K51.90 Ulcerative colitis, unspecified, without complications (principal); F17.200 Nicotine dependence, unspecified, uncomplicated; Z87.442 Personal history of urinary calculi
CPT/HCPCS: 99282